=== PATIENT | female | born 1935 | race Caucasian/White ===

== ENCOUNTER 2016-09-03 17:53 | Inpatient (IN) ==
[2016-09-03 18:58] LABS: MANUAL DIFF NEEDED? NO
--- NOTE | 2016-09-03 18:59 | EKG Report ---
Test Performed on : 09/03/2016 6:49:05 PM Test Reason : AMS Blood Pressure : / mmHG Vent. Rate : 081 BPM Atrial Rate : 081 BPM P-R Int : 188 ms QRS Dur : 146 ms QT Int : 464 ms P-R-T Axes : 048 -35 111 degrees QTc Int : 539 ms Normal sinus rhythm. Left axis deviation Nonspecific intraventricular block Abnormal ECG When compared with ECG of 05-JUL-2016 09:15, Sinus rhythm. has replaced Electronic ventricular pacemaker Unconfirmed Result
[2016-09-03 19:04] LABS: BASO% 0.5 % (0.0-0.8); EOS# 0.19 X1000 (0.0-0.7); EOS% 1.9 % (0.0-10.0); HEMATOCRIT 20.5 % (37.0-47.0); HEMOGLOBIN 6.3 g/dL (12.0-16.0); IMM GRAN# 0.03 X1000 (0.0-0.04); IMM GRAN% 0.3 % (0.0-0.5); LYMPH# 1.95 X1000 (1.2-3.4); LYMPH% 19.5 % (20.5-51.1); MCH 27.2 PG (27-31); MCHC 30.7 g/dL (33-37); MCV 88.4 FL (81-99); MONO# 0.68 X1000 (0.11-0.59); MONO% 6.8 % (1.7-9.3); MPV 10.2 FL (7.4-10.4); PLT 171 X1000 (130-400); RBC 2.32 XMIL (4.2-5.4)
[2016-09-03 19:07] LABS: PTT PL 44.6 Seconds (22.6-43.9)
[2016-09-03 19:12] LABS: ALBUMIN 3.4 g/dL (3.5-5.0); CALCIUM 9.5 mg/dL (8.8-10.2); POTASSIUM 3.9 mmol/L (3.5-5.1); TOTAL BILIRUBIN 0.2 mg/dL (0.20-1.00); TOTAL PROTEIN 5.5 g/dL (6.3-8.3)
[2016-09-03 19:28] LABS: UR AMPHETAMINES QUAL NONE DETECTED (NONE DETECT); UR BARBITUATES QUAL NONE DETECTED (NONE DETECT); UR BENZODIAZEPIN QUAL NONE DETECTED (NONE DETECT); UR COCAINE QUAL NONE DETECTED (NONE DETECT); UR MDMA QUAL NONE DETECTED (NONE DETECT); UR METHADONE QUAL NONE DETECTED (NONE DETECT)
[2016-09-03 19:29] LABS: UR CANNABINOIDS QUAL NONE DETECTED (NONE DETECT); UR METHAMPHETAMINE QUAL NONE DETECTED (NONE DETECT); UR OPIATES QUAL PRESUMPTIVE POSITIVE (NONE DETECT); UR OXYCODONE QUAL NONE DETECTED (NONE DETECT); UR PCP QUAL NONE DETECTED (NONE DETECT); UR TCA QUAL NONE DETECTED (NONE DETECT)
[2016-09-03 19:58] LABS: INR 5.06 (0.86-1.15); PROTIME 46.1 Seconds (12.1-15.5)
[2016-09-03 19:58] LABS: BILIRUBIN URINE NEGATIVE (NEGATIVE); BLOOD URINE 1+ (NEGATIVE); CLARITY SL. CLOUDY (CLEAR); COLOR YELLOW; GLUCOSE URINE NEGATIVE (NEGATIVE); LEUKOCYTES URINE 1+ (NEGATIVE); NITRITE URINE NEGATIVE (NEGATIVE); PROTEIN URINE NEGATIVE (NEGATIVE); SP GRAVITY URINE 1.015; UROBILINOGEN URINE NORMAL
[2016-09-03 20:00] LABS: URINE CAST NONE SEEN /LPF; URINE CRYSTAL NONE SEEN /HPF; URINE CULTURE PL NEEDED? YES; URINE EPITHELIAL CELLS <10 /HPF (<10); URINE RBC <10 /HPF (<10); URINE SOURCE CLEAN CATCH; URINE WBC <10 /HPF (<10)
[2016-09-03 20:57] LABS: OCCULT BLOOD 1 POSITIVE (NEGATIVE)
--- NOTE | 2016-09-03 20:58 | Diag Imaging Result Document ---
PROCEDURE NAME: HEAD W/O CONTRAST - 09/03/2016 CT OF THE HEAD WITHOUT CONTRAST: FINDINGS: There is encephalomalacia in the right occipital lobe and patchy lucencies are present elsewhere in the periventricular white matter, the anterior limb of the internal capsule on the right and to some extent in both basal ganglia. There is no evidence of mass effect, bleed, or abnormal extra-axial fluid collection. There are dense calcifications in both vertebral arteries. Compared to 08/22/2016, there has been no significant change in the appearance of the brain. As there has clearly been previous ischemic change, the possibility of a small acute infarct cannot be entirely excluded, and further evaluation with MRI may be desirable. IMPRESSION: No evidence of acute disease. Chronic ischemic changes as described.
[2016-09-03] MEDS ORDERED: NS 1,000 ML IV ONE (21:05)
[2016-09-03] MEDS ORDERED: VITAMIN K 10 MG in NS 50 ML IV ONE (21:15)
--- NOTE | 2016-09-03 21:20 | PROVIDER DOCUMENTATION ---
This chart was entered by Cathryn Chandler Scribe, acting as scribe for Keegan Roberts PA. HPI-General Adult - General Chief Complaint: Weakness Stated Complaint: WEAKE Time Seen by Provider: 09/03/16 18:29 Source: patient Allergies/Adverse Reactions: Patient Allergies Allergy/AdvReac Type Severity Reaction Status Date / Time carbidopa [From Sinemet] Allergy Unknown Verified 09/03/16 20:08 diazepam [From Valium] Allergy Unknown Verified 09/03/16 20:08 diltiazem HCl * Allergy Unknown Verified 09/03/16 20:08 [From Cardizem] levodopa [From Sinemet] Allergy Unknown Verified 09/03/16 20:08 morphine Allergy Unknown Verified 09/03/16 20:08 Penicillins Allergy Unknown Verified 09/03/16 20:08 rasagiline mesylate * Allergy Unknown Verified 09/03/16 20:08 [From Azilect] sotalol Allergy Unknown Verified 09/03/16 20:08 streptomycin Allergy RASH Verified 09/03/16 20:08 Home Medications: Home Medication List Medication Instructions Recorded Confirmed Last Taken Type Aspirin 81 mg PO DAILY 01/30/15 09/03/16 07/05/16 07:00 History Lidocaine 5% Patch [Lidoderm] 1 patch TOP PRN PRN 01/30/15 09/03/16 06/09/16 06: 00 History 1 PATCH Warfarin [Coumadin] 4 mg PO DIRECTED 01/30/15 09/03/16 07/04/16 18:00 History Hydrocodone/Acetaminophen [[place] 1 each PO BID 06/13/15 09/03/16 07/04/16 History 10-325 Tablet] Lorazepam 1 mg PO QHS 06/13/15 09/03/16 07/04/16 18:00 History Isosorbide Mononitrate E.r. [Imdur] 30 mg PO DAILY 08/22/15 09/03/16 07/05/16 07 :00 History Nitroglycerin [Nitrostat] 0.4 mg SL PRN PRN 08/22/15 09/03/16 Unknown History Pramipexole Di-HCl [Mirapex] 1 tab PO QHS 08/22/15 09/03/16 07/04/16 18:00 History Gabapentin 300 mg PO BID 01/27/16 09/03/16 07/04/16 18:00 History Potassium Chloride 10 meq PO DAILY 01/27/16 09/03/16 07/04/16 12:00 History Ropinirole HCl 1 mg PO HS 01/27/16 09/03/16 07/04/16 18:00 History ATORVAstatin [Lipitor] 40 mg PO DAILY 08/22/16 09/03/16 Unknown History Trazodone [Desyrel] 200 mg PO HS PRN PRN 08/22/16 09/03/16 Unknown History Metoprolol [Lopressor] 25 mg PO DAILY 09/03/16 09/03/16 Unknown History - History of Present Illness -Gen Adult Nature of Presenting Problems: 81 year old F presents to the ED with a cc of weakness. PT states that nothing feels right and she feels empty inside. PT states that she is having to brace herself to take a step. PT states that she struggles walking with her walking and with her 's assistance. states that she had her [place] level checked last week and it was 7.5. PT was taken off the [place] and level are suppose to be checked again tomorrow. Pt was told that levels could be checked tonight. Pt states that she has had some dark stools intermittently. Pt has been diagnosed with tremors and is being treated for them. Location of Pain/Injury: reports: generalized Pain Radiation: reports: no radiation Quality of Pain: reports: none Severity: reports: mild Onset/Duration: reports: 3 days ago Timing: reports: getting worse Context/Activities at Onset: reports: none Associated Symptoms: reports: weakness Similar Symptoms Previously?: No Recently seen or treated by another doctor?: No Review of Systems - Adult - REVIEW OF SYSTEMS - ADULT Constitutional: denies: chills, fever Eyes: reports: no symptoms reported Ears, Nose, Mouth & Throat: reports: no symptoms reported Cardiovascular: denies: chest pain, palpitations Respiratory: denies: cough, shortness of breath Gastrointestinal: reports: no symptoms reported Genitourinary: reports: no symptoms reported Musculoskeletal: reports: muscle weakness. denies: muscle aches Integumentary: denies: skin sores/ulcer, skin thickening Neurological: reports: no symptoms reported Psychiatric: reports: no symptoms reported Endocrine: reports: no symptoms reported Hematologic/Lymphatic: reports: no symptoms reported Allergic/Immunologic: reports: no symptoms reported All Other Systems: Reviewed and Negative Past History - Adult - PAST MEDICAL HISTORY-ADULT Review of Records: reports: Nursing Assessment Review, Medications Reviewed Major Childhood Illnesses: reports: denies history Cardiovascular: reports: cardiac disease (multiple cardiac stents), pacemaker Respiratory: reports: denies history Gastrointestinal: reports: denies history Obstetrical/Gynecological: reports: denies history Genitourinary: reports: denies history Musculoskeletal: reports: arthritis, orthopedic injury Neurological: reports: Parkinson's Psychiatric: reports: denies history Endocrine/Immune: reports: denies history Other Conditions: reports: denies history - PRIOR SURGERIES/PROCEDURES Surgical/Procedure History: reports: reviewed, not pertinent - PRIOR HOSPITALIZATIONS Prior Hospitalizations: reports: for other non-related - IMMUNIZATION STATUS Childhood Immunizations: See Nurse Assessment Flu Vaccine: See Nurse Assessment - FAMILY HISTORY Family History: reviewed, not pertinent - SOCIAL HISTORY Smoking: non-smoker Substance Use: none/never Alcohol Use Frequency: rarely Physical Exam-General - PHYSICAL EXAM-ADULT Initial Vital Signs Reviewed: Yes - CONSTITUTIONAL General Appearance: appears well, alert, no apparent distress - RESPIRATORY Respiratory: chest non-tender, lungs clear, normal breath sounds - CARDIOVASCULAR Cardiovascular: normal peripheral pulses, regular rate, rhythm, no edema - GASTROINTESTINAL (ABDOMEN) Abdominal Exam: non tender, soft - MUSCULOSKELETAL Extremity: normal inspection - SKIN Integumentary: normal color, normal turgor, warm/dry - NEUROLOGIC 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 negative: facial droop, focal weakness, sensory deficit - PSYCHIATRIC Psych/Mental Status: normal mood/affect, normal thought content, normal thought process, oriented x 3 Progress - PLAN OF CARE/RESULTS Progress/Plan/Lab Results: Vital Signs - 8 hr 09/03/16 17:55 Temperature 98.1 F Pulse Rate 86 Respiratory Rate 18 Blood Pressure 126/59 O2 Sat by Pulse Oximetry 98 Result Diagrams: 09/03/16 18:02 09/03/16 18:02 - REASSESSMENT Reassessment #1 Time Reassessed: 21:11 (Discussed c Dr. Villa (ER MD) who agreed c admission and plan of care and would like me to order 10mg Vit K IV. Pt confirms that she does not have an artificial heart valve. ) - EKG 1 Time of EKG reading by physician:: 18:49 EKG Read and Signed by:: Cali Villa EKG Interpretation (*Must complete 3 of following elements*): Abnormal Rate: 81 Rhythm: NSR [place]: left Comments: nonspecific intraventricular block - CT/MRI 1 CT Study: Head Impression: Abnormal CT Results: chronic microvascular changes - CONSULTS/PCP/HOSPITALIST Notification #1 *Consult/PCP/Hospitalist*: Dr. Olguin (PCP) Time Discussed: 20:45 (Admit pt to [facility] for GI consult) #2 Consult: Dr. Jorgensen (Hospitalist) Time Discussed: 21:10 (Will accept admission and consult GI.) Departure - Departure Time of Disposition Decision: 21:03 DIAGNOSIS: Supratherapeutic INR, GI bleed, Weakness Disposition: ADMITTED INPATIENT 09 Certified Medical Emergency: Emergent Condition: Stable Referrals and Follow-Ups: David Olguin MD [Primary Care Provider] - Attestation - Physician/ AUGUSTUS Attestation Patient care was provided by Advanced Practice Provider:: Yes Advanced Practice Provider:: Keegan Roberts Advanced Practice Provider documentation review:: The Mid-level provider documentation, treatment plan and medical decision making was reviewed by the physician who agrees with all treatment and medical decision making by the MLP. This chart was documented by the indicated scribe, (Cathryn Chandler Scribe) and accurately reflects the services I performed and decisions made by me, Keegan Roberts PA, as attested by the provider's signature.
[2016-09-04] MEDS ORDERED: REQUIP PO ONE (00:35)
--- NOTE | 2016-09-04 01:03 | HISTORY AND PHYSICAL ---
PRIMARY CARE PHYSICIAN: Dr. David Olguin. CHIEF COMPLAINT: Weakness. HISTORY OF PRESENTING ILLNESS: A 81-year-old female with a history of coronary disease, atrial fibrillation, hypertension, had presented to emergency department with 3 days history of having worsening weakness. Patient states that she was unable to get out of bed and her had to lift her up to even use the bathroom. She was evaluated in the ER at [place], and at that time she was found to have routine laboratories that showed that she was profoundly anemic. Due to a lack of subspecialty care, she was transferred to [facility] for further evaluation and management. As per ER provided there they noted that the patient was having dark stools and was Hemoccult positive there. At the time of my examination, patient denied having any headache, fever, chills, chest pain, shortness of breath or any weight changes but complained of having dark stools and feeling weak. PAST MEDICAL HISTORY: Includes hypertension, atrial fibrillation, coronary disease, peripheral vascular disease, restless legs syndrome, hyperlipidemia. PAST SURGICAL HISTORY: Pacemaker, coronary stent, hysterectomy, catheter ablation. ALLERGIES: Penicillin, mycins, carbidopa, diazepam, diltiazem, levodopa and morphine. CURRENT MEDICATIONS: As listed in MAR. SOCIAL HISTORY: She is a former smoker. Admits to social alcohol use. Denies any illicit drug use. FAMILY HISTORY: No history of coronary disease. REVIEW OF SYSTEMS: [employer] point systems is as in HPI. Other systems negative. PHYSICAL EXAMINATION: GENERAL: Cooperative, friendly female. She is resting comfortably now. VITAL SIGNS: Temperature 98.1 degrees, pulse 86, respiration 18, blood pressure 126/59, saturating 98%. HEENT: Atraumatic, normocephalic. Extraocular movements intact. PERRLA. She has pale conjunctiva. NECK: Supple. CHEST: Clear to auscultation. CARDIOVASCULAR: Regular rate, rhythm. ABDOMEN: Soft. Positive bowel sounds. EXTREMITIES: No edema. NEURO: She is awake, alert, oriented x3. Strength 5/5 all extremities. : No bladder distention. SKIN: Warm and dry. LABORATORIES AND STUDIES: UA shows +3 bacteria. Hemoglobin 6.3, hematocrit 20.5, platelets 171,000. INR 5.06. Sodium 142, potassium 3.9, chloride 107, CO2 23, BUN is 37 , creatinine is 1.3, glucose 108. ASSESSMENT: A 81-year-old female with a history of atrial fibrillation, hypertension, coronary disease, had presented to emergency department with having worsening weakness for the past 3 days. She is found to be severely anemic and she was transferred to [facility] due to lack of gastrointestinal services there. 1. Symptomatic anemia. 2. Suspected upper gastrointestinal bleed. 3. Supratherapeutic INR. 4. Hypertension. 5. Dehydration. 6. UTI PLAN: 1. We will admit patient to ICU. 2. We will type and cross and transfuse 2 units packed red blood cells. 3. We will keep patient NPO and consult Gastroenterology. 4. The patient was given vitamin K already. Will monitor PT/INR. 5. We will monitor blood pressure close 6 We will continue with IV fluids. 7. IV ABX, check urine culture 8. Put patient on DVT prophylaxis with SCDs. 9. We will continue to follow and reassess. cc: Dick Jorgensen MD MTDD
--- NOTE | 2016-09-04 06:15 | Diag Imaging Result Document ---
PROCEDURE NAME: CHEST-1 VIEW - 09/03/2016 CHEST SINGLE VIEW: COMPARISON: Compared to 07/05/2016. FINDINGS: The lungs are well expanded. The heart is not enlarged. The vessels are not distended. There is a left-sided pacemaker. Calcified granuloma found in the lower right lung and there are calcified right hilar lymph nodes. No pleural effusions identified. IMPRESSION: Negative chest.
[2016-09-04] MEDS: ZOFRAN IV PRN (09:30)
[2016-09-04] MEDS: SODIUM CHLORIDE 0.9% INJ SCH ×2 (09:30→21:43)
[2016-09-04] MEDS: PROTONIX IV SCH ×2 (09:30→21:43)
[2016-09-04 09:35] LABS: MANUAL DIFF NEEDED? NO
[2016-09-04 09:50] LABS: BASO% 0.3 % (0.0-0.8); EOS# 0.43 X1000 (0.0-0.7); EOS% 4.1 % (0.0-10.0); HEMATOCRIT 27.6 % (37.0-47.0); HEMOGLOBIN 8.8 g/dL (12.0-16.0); LYMPH# 2.92 X1000 (1.2-3.4); LYMPH% 27.8 % (20.5-51.1); MCH 28.9 PG (27-31); MCHC 31.9 g/dL (33-37); MCV 90.5 FL (81-99); MONO# 0.71 X1000 (0.11-0.59); MONO% 6.8 % (1.7-9.3); PLT 128 X1000 (130-400); RBC 3.05 XMIL (4.2-5.4)
[2016-09-04 10:47] LABS: POTASSIUM 4.1 mmol/L (3.5-5.1)
--- NOTE | 2016-09-04 11:04 | PROGRESS NOTE ---
DATE: 09/04/2016 SUBJECTIVE: Patient reports she is still feeling weak. She had noticed yesterday darker stools, but nothing today. She denies any abdominal pain, although she was complaining of mild nausea this morning. OBJECTIVE: Vital Signs: Temperature 98.7 degrees, heart rate 75, respiratory rate 21, blood pressure 135/80, O2 saturation 99% on room air. General Examination: This is a 81-year-old female lying in bed in no acute distress. HEENT: Head is normocephalic, atraumatic. Anicteric sclerae and pale conjunctivae. Mucous membranes moist. Neck: Supple. No JVD noted. No carotid bruits. No lymphadenopathy. No thyromegaly. Cardiovascular: S1 and S2 heard. No murmurs, gallops, or rubs. Regular rate and rhythm. Respiratory: Clear bilaterally to auscultation. No work of breathing. Not using accessory muscles. Abdomen: Soft, nontender to palpation. Bowel sounds present. No organomegaly. Extremities: No clubbing, cyanosis, or edema. Peripheral pulses present in both legs. Neurological: Patient is alert and oriented x3. Able to move 4 extremities. Cranial nerves 2-12 grossly normal. LABORATORY DATA: White cell count 10.49, hemoglobin 8.8, hematocrit 27.6, platelets 128,000. BMP unremarkable. ASSESSMENT AND PLAN: 1. Gastrointestinal bleeding. The patient had darker stools and in the ER she was found to have hemoglobin of 6.3. Two units of blood have been ordered and we transfused it. Gastroenterology, Dr. Ng, is supposed to see this patient today. We will follow his recommendations. 2. Supratherapeutic INR. The INR was 5.06. We have discontinued the medication because of GI bleeding and because of the procedure, in this case an upper endoscopy. We will continue watching this patient closely in the intensive care unit. 3. Hypertension. The blood pressure is ranging between 100 and 130. We will continue with the same management. 4. Acute kidney injury. Creatinine yesterday was 1.3. The patient currently is on IV fluids. We will continue with the same management. We will check BMP tomorrow. cc: Stephon Sahu MD
--- NOTE | 2016-09-04 11:59 | EKG Report ---
Test Performed on : 09/04/2016 07:09:37 AM Test Reason : No Order in Cloakroom Blood Pressure : / mmHG Vent. Rate : 075 BPM Atrial Rate : 075 BPM P-R Int : 172 ms QRS Dur : 148 ms QT Int : 468 ms P-R-T Axes : -24 -38 111 degrees QTc Int : 522 ms AV dual-paced rhythm Abnormal ECG No previous ECGs available Confirmed by Esa BYRD, Edison Steve ([id number]) on 09/06/2016 9:27:00 PM
[2016-09-04] MEDS: DILAUDID IV PRN ×2 (12:26→19:25)
[2016-09-04 16:18] LABS: HEMOGLOBIN 8.3 g/dL (12.0-16.0)
[2016-09-04 16:45] LABS: INR 1.09; PROTIME 11.5 Seconds (9.2-11.7)
--- NOTE | 2016-09-04 18:57 | CONSULTATION ---
DATE OF CONSULTATION: 09/04/2016 REASON FOR REFERRAL: Anemia, Hemoccult-positive stool, and melena. HISTORY OF PRESENT ILLNESS: This is a 81-year-old female who reports a 3-day history of having weakness that has progressively gotten worse, to the point that she was unable to walk without assistance from her . Ambulance was called and she was brought to the ER at [place]. At that time she was found to have profound anemia and was transferred to [facility] for further evaluation. In the ER she was found to have a Hemoccult-positive stool. Patient reports being on chronic Coumadin therapy. On evaluation her INR was greater than 7. She does note having a recent diagnosis of urinary tract infection and had recently taken antibiotics. She denies any bright red blood in the stool. She denies nausea or vomiting. Her Coumadin was stopped on Friday. Repeat PT/INR level last night showed an INR of 5.06. Patient reports mild abdominal pain. She has had some reflux and heartburn recently. She was seen in the hospital in June of this year and evaluated for chest pain and dysphagia. An EGD was done that showed mild gastritis. She states her colonoscopy last done was greater than 5 years ago in [place]. PAST MEDICAL HISTORY: For hypertension, atrial fibrillation, coronary artery disease with history of pacemaker placement, peripheral vascular disease, restless legs syndrome, hyperlipidemia. PAST SURGICAL HISTORY: Pacemaker, history of coronary stent, history of cardiac ablation, hysterectomy. As noted, last EGD was in June of 2016 per patient report. Last colonoscopy was over 5 years ago. ALLERGIES: Sinemet, unknown reaction. Valium, unknown reaction. Cardizem, unknown reaction. Levodopa, unknown reaction. Morphine, unknown reaction. Penicillin, unknown reaction. Azilect, unknown reaction. Sotalol, unknown reaction. Streptomycin, causing a rash. HOME MEDICATIONS: Lopressor 25 mg daily, Lipitor 40 mg daily, ropinirole 1 mg every night, Mirapex 1 tablet every night, potassium 10 mEq daily, Nitrostat 0.4 sublingual as needed, gabapentin 300 mg twice daily, aspirin 81 mg daily, Desyrel 200 mg every night as needed, Lidoderm 1 patch as needed, Imdur 30 mg daily, [place] 10/325 twice a day, Coumadin 4 mg as directed, lorazepam 1 mg every night. SOCIAL HISTORY: History of tobacco use. Occasional alcohol use. She is . REVIEW OF SYSTEMS: HEENT: Reports some dizziness and lightheadedness. No reported syncope. Cardiovascular: History of cardiac ablation and history of pacemaker she has complained of some heaviness but no reported chest pain or palpitations. Pulmonary: Reports some shortness of breath. GI: Per HPI. : History of recent urinary tract infection and recently took antibiotics. Neurological: History of TIA. Musculoskeletal: Reports history of restless legs syndrome. PHYSICAL EXAMINATION: Vital signs: Temperature 98.3 degrees, pulse 75, respirations 13, blood pressure 131/53. General: The patient is awake, alert, in no acute distress. HEENT: Normocephalic, atraumatic. Pupils equal, round, reactive to light. Sclerae nonicteric. Conjunctiva are pale. Respiratory: Lung sounds essentially clear bilaterally. Cardiovascular: Paced rhythm. Abdomen: Soft. Positive bowel sounds. Neurological: She is awake, alert, no acute distress. Oriented to person, place, and time. Extremities: Bilateral lower extremity pulses present. No edema noted. DIAGNOSTIC RESULTS/LABORATORY: Hematology: White count 10.89, hemoglobin 8.3, hematocrit 26.0, MCV 90.5, platelet 128,000. Coagulation: Protime 46.1, INR 5.06, PTT 44.6. Chemistry: Sodium 145, potassium 4.1, chloride 111, CO2 23, BUN 38, creatinine 1.0, glucose 91, calcium 8.0, total bilirubin 0.20, AST 28, ALT 14. Hemoccult stool was positive. Drug screen was negative except for presumptive positive for opiates. ASSESSMENT: 1. Anemia. 2. Hemoccult-positive stool. 3. Supratherapeutic INR with recent antibiotic use. 4. History of chronic Coumadin use. 5. History of atrial fibrillation. 6. Coronary artery disease with history of pacemaker placement. PLAN: Recheck PT/INR. Monitor hemoglobin and hematocrit and transfuse packed red blood cells as needed. Monitor for active bleeding. We will plan for EGD when her INR is at an appropriate level. Further plans will be made according to findings. Thank you for this consultation. Patient was also seen by Dr. Giron. Dictated by LUCERO Stahl for Dajuan Giron MD cc: LUCERO Ayoub MD MTDD
[2016-09-04] MEDS ORDERED: REQUIP PO SCH (21:00)
[2016-09-04] MEDS: REQUIP PO SCH (21:43)
[2016-09-05] MEDS: DILAUDID IV PRN ×4 (04:51→20:16)
[2016-09-05 06:02] LABS: MANUAL DIFF NEEDED? NO
[2016-09-05 06:14] LABS: INR 1.02; PROTIME 10.7 Seconds (9.2-11.7)
[2016-09-05 06:15] LABS: BASO% 0.3 % (0.0-0.8); EOS# 0.55 X1000 (0.0-0.7); HEMATOCRIT 25.6 % (37.0-47.0); HEMOGLOBIN 8.1 g/dL (12.0-16.0); IMM GRAN# 0.07 X1000 (0.0-0.04); IMM GRAN% 0.8 % (0.0-0.5); LYMPH# 2.97 X1000 (1.2-3.4); LYMPH% 32.4 % (20.5-51.1); MCH 28.7 PG (27-31); MCHC 31.6 g/dL (33-37); MCV 90.8 FL (81-99); MONO# 0.89 X1000 (0.11-0.59); MONO% 9.7 % (1.7-9.3); MPV 9.9 FL (7.4-10.4); NEUT% 50.8 % (42.2-75.2); PLT 151 X1000 (130-400); RBC 2.82 XMIL (4.2-5.4)
[2016-09-05 06:27] LABS: POTASSIUM 3.7 mmol/L (3.5-5.1)
[2016-09-05] MEDS: PROTONIX IV SCH ×3 (10:05→21:56)
--- NOTE | 2016-09-05 11:49 | PROGRESS NOTE ---
DATE: 09/05/2016 SUBJECTIVE: Patient reports feeling fine. Denies any sensation of dizziness. No vomiting blood or having blood in the stools. OBJECTIVE: Vital Signs: Temperature 97.9 degrees, heart rate 81, respiratory rate 19, blood pressure 117/75, O2 saturation 97% on room air. General Examination: This is a 81-year-old female lying in bed, in no acute distress. HEENT: Head is normocephalic, atraumatic. Anicteric sclerae. Pale conjunctivae. Mucous membranes moist. Neck: Supple. No JVD noted. No carotid bruits. No lymphadenopathy. No thyromegaly. Cardiovascular: S1, S2 heard. No murmurs, gallops, or rubs. Regular rate and rhythm. Respiratory: Clear bilaterally to auscultation. No work of breathing or using accessory muscles. Abdomen: Soft. Nontender to palpation. Bowel sounds present. No organomegaly. Extremities: No clubbing, cyanosis, or edema. Peripheral pulses present in both legs. Neurological: Patient is alert and oriented x3. Able to move 4 extremities. Cranial nerves 2 through 12 grossly normal. LABORATORY DATA: Reviewed. ASSESSMENT AND PLAN: 1. Gastrointestinal bleeding. As we mentioned before, patient had dark stools and she also was complaining of dizziness and fatigue. She was found to have a hemoglobin of 6.3. She was admitted to the hospital for further evaluation and treatment. She I received 1 unit of PRBCs. We are going to transfuse [address] Giron from GI is going to scope her. Will see what that exam shows. 2. Supratherapeutic INR. After we stopped Coumadin the INR today is normal. At this point, after the procedure we will discuss the patient the benefits to continue with anticoagulation considering this new episodes of bleeding. 3. Hypertension. Blood pressure is under control. We will continue with the same management. 4. Acute kidney injury. The patient has been started on IV fluids since yesterday and today the creatinine is completely normal. 5. Overall this patient is doing good so we are going to move this patient out of the intensive care unit today. cc: Stephon Sahu MD
[2016-09-05] MEDS ORDERED: MYLICON DROPS (DOSE) ONE (12:52)
[2016-09-05] MEDS ORDERED: GLUCAGON ONE (13:02)
[2016-09-05] MEDS ORDERED: EPINEPHRINE SYRINGE ONE (13:12)
[2016-09-05] MEDS ORDERED: ZOFRAN ONE (13:55)
[2016-09-05] MEDS ORDERED: DEMEROL ONE (14:00)
[2016-09-05] MEDS ORDERED: DIPRIVAN 1% ONE (14:13)
[2016-09-05] MEDS ORDERED: XYLOCAINE-MPF 2% ONE (14:29)
[2016-09-05] MEDS ORDERED: ANESTHESIA PB SET 88 IN 5742 ONE (14:29)
[2016-09-05] MEDS ORDERED: LR 500 ML ONE (14:29)
[2016-09-05] MEDS: REQUIP PO SCH (20:16)
--- NOTE | 2016-09-05 22:34 | OPERATIVE NOTE ---
PROCEDURE DATE: 09/05/2016 PROCEDURE: Esophagogastroduodenoscopy and hemorrhage control. PREOPERATIVE DIAGNOSIS: Gastrointestinal bleed and anemia secondary to gastrointestinal bleed. POSTOPERATIVE DIAGNOSIS: 1. 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 2. Small diverticulum third portion of the duodenum. MEDICATION USED: MAC as per Anesthesia. SCOPE USED: 1. Olympus GIF HQ190. 2. Olympus duodenoscope. HISTORY: This is a 81-year-old white female admitted to hospital with melanic stool who was found to have profound anemia. She was also found to have coagulopathy. Endoscopy was done for diagnostic as well as therapeutic purposes. DETAILS OF OPERATION: Informed consent obtained from the patient. The procedure, risks, benefits, alternatives were explained in layman's terms. She understood. All the pertinent questions were answered. Patient was brought to the endoscopy unit and was premedicated as per Anesthesia. After adequate sedation, while she was lying in left lateral position, the gastroscope was introduced into the posterior pharynx and advanced under direct vision into the esophagus. Esophagus in its entire length appeared to be normal. No esophagitis, webs, rings, varices were seen. No evidence of active bleeding or stigmata of recent bleed seen in the esophagus. The scope was then passed through the esophagus into the stomach. The stomach was examined in both straight and retroflexed view, which revealed normal cardia, fundus, body, and antrum. I did not see any evidence of active bleeding or stigmata of recent bleed. In the stomach. Scope was then passed through the pylorus into the duodenal bulb, where I saw a pool of flow altered blood in the dependent part of the bulb. I did not see any evidence of active bleeding from the bulb. I was able to advance the scope through the 2nd portion of the duodenum where I saw more bright red blood and blood and appeared to be trickling from distal duodenum. I was able to advance the scope just at the turn of the 2nd portion into the 3rd portion of the duodenum where I was able to see streaking of bright red blood from the medial aspect of the duodenum which I could not completely clearly visualize because of the tangent view. At this point, I withdrew the gastroscope and switch to the duodenoscope or the ERCP scope. I was able to advance the scope manually into the esophagus and then through the esophagus through the stomach and then through the pylorus into the duodenal bulb and then 2nd portion of the duodenum traversing it. Went all the way up to the turn where I could see the blood oozing, coming out of a small spot which did not appear to be an ulcer, base of the ulcer or erosion. There appeared to be a Dieulafoy's lesion which was actively bleeding. There was indeed a small diverticulum noted about a couple cm lateral to the spot where the blood was oozing. The bleeding was quite brisk. At this point, I used a sclerotherapy needle and injected 1:10,000 epinephrine in aliquots of 0.5 mL, total about 2 mL were injected in and around the area. The bleeding almost ceased to a trickle. Then I used a heater probe and applied 15 joules of current multiple times, getting a good cautery. The bleeding stopped and then the scope was withdrawn. Patient tolerated procedure well. No complications noted. Patient was then transferred to the recovery area in a stable condition. IMPRESSION: Bleeding Dieulafoy's lesion, third portion of the duodenum, treated. RECOMMENDATION: I would recheck her hemoglobin and hematocrit transfuse if necessary. In the meantime, continue her proton pump inhibitor. 12 hours and observe in the hospital. If she is stable, she can be discharged, to be followed up at the office. cc: MD David Garces MD
[2016-09-06] MEDS: DILAUDID IV PRN ×6 (00:46→21:22)
[2016-09-06 05:38] LABS: MANUAL DIFF NEEDED? NO
[2016-09-06 05:46] LABS: BASO% 0.2 % (0.0-0.8); EOS# 0.46 X1000 (0.0-0.7); EOS% 3.6 % (0.0-10.0); HEMATOCRIT 24.7 % (37.0-47.0); HEMOGLOBIN 7.9 g/dL (12.0-16.0); IMM GRAN# 0.05 X1000 (0.0-0.04); IMM GRAN% 0.4 % (0.0-0.5); LYMPH# 4.05 X1000 (1.2-3.4); LYMPH% 32.1 % (20.5-51.1); MCH 29.5 PG (27-31); MCV 92.2 FL (81-99); MONO# 0.91 X1000 (0.11-0.59); MONO% 7.2 % (1.7-9.3); MPV 9.9 FL (7.4-10.4); NEUT% 56.5 % (42.2-75.2); PLT 170 X1000 (130-400); RBC 2.68 XMIL (4.2-5.4)
[2016-09-06 05:57] LABS: CALCIUM 8.1 mg/dL (8.8-10.2)
[2016-09-06] MEDS: SODIUM CHLORIDE 0.9% INJ SCH (09:40)
[2016-09-06] MEDS: PROTONIX IV SCH (09:40)
[2016-09-06] MEDS ORDERED: NS 500 ML ONE (10:19)
--- NOTE | 2016-09-06 12:29 | PROGRESS NOTE ---
DATE: 09/06/2016 SUBJECTIVE: The patient reports feeling fine. Denies any vomiting blood or blood in the stools. OBJECTIVE: Vital Signs: Temperature 99.0 degrees, heart rate 72, respiratory rate 17 blood pressure 126/93, O2 saturation 98% on room air. General examination: This is a 81-year-old, female, lying in bed in no acute distress. HEENT: Head is normocephalic, atraumatic. Anicteric sclerae and pale conjunctivae. Mucous membranes moist. Neck: Supple. No JVD noted. No carotid bruits. No lymphadenopathy. No thyromegaly. Cardiovascular exam: S1, S2 heard. No murmurs, gallops, or rubs. Regular rate and rhythm. Respiratory exam: Clear bilaterally to auscultation. No work of breathing or using accessory muscles. Abdomen: Soft , nontender to palpation. Bowel sounds present. No organomegaly. Extremities: No clubbing, cyanosis, or edema. Peripheral pulses present in both legs. Neurological exam: Patient alert, oriented x3. Able to move 4 extremities. Cranial nerves 2-12 grossly normal. LABORATORY DATA: White cell count 12.62, hemoglobin 7.9, hematocrit 24.7, platelets 170. BMP unremarkable. ASSESSMENT AND PLAN: 1. Gastrointestinal bleeding secondary to Dieulafoy lesion in the duodenum. Gastroenterology has scoped this patient yesterday and that is what we found. By now, the hemoglobin is stable. We are going to transfuse 1 unit of blood today. At this point, we are going to continue with Protonix 40 mg intravenous every 12 hours, and also we will add sucralfate to her current treatment. 2. Supratherapeutic INR. At this point, we are going to stop Coumadin considering this recent gastrointestinal bleed. I will suggest to have an appointment with her primary assistant counsel, Dr. Luong, in order to re-evaluate the need for anticoagulation. 3. Hypertension. Blood pressure is under control. 4. Acute kidney injury, resolved. 5. Physical deconditioning. The patient will need to go to rehabilitation facility/skilled nursing as per family request. We will continue with same management. cc: Stephon Sahu MD [facility]
--- NOTE | 2016-09-06 13:43 | PROGRESS NOTE ---
DATE: 09/06/2016 SUBJECTIVE: The patient denies any significant complaint. She complains of the wires and not being able to get up. She denies any evidence of blood in her stool or vomiting blood. She has not had a bowel movement since admission. EGD findings from yesterday showed a Dieulafoy's lesion in the duodenum that was treated. Vital signs: Temperature 99.0 degrees, pulse 72, respirations 17, blood pressure 126/93. Generally: The patient is awake, alert, no acute distress. Cardiovascular: Regular rate and rhythm. Respiratory: Lung sounds essentially clear. Abdomen: Is soft, nontender. Positive bowel sounds. DIAGNOSTIC RESULTS, LABORATORY, HEMATOLOGY: White count 12.62, hemoglobin 7.9, hematocrit 24.7, MCV 92.2. Coagulation yesterday PT 10.7, INR 1.02. Chemistry: Sodium 143, potassium 4.0, chloride 110, CO2 21, BUN 27, creatinine 1.0. Glucose 88. ASSESSMENT AND PLAN: 1. GI bleed. 2. Findings of Dieulafoy's lesion in the duodenum that was treated. 3. Supratherapeutic INR. Her Coumadin has been held for now. Follow with respiratory therapy technician regarding when to restart the anticoagulation. 4. Anemia. She is receiving a unit of packed red blood cells today. Will continue to follow. Monitor hemoglobin and hematocrit. Transfuse further packed red blood cells as needed. We can go ahead and change her PPI from IV to p.o. twice a day. Will see back on Friday. If discharged will see her in the office in a couple weeks from discharge and patient voices understanding. I have discussed this case with Dr. Giron. Dictated by LUCERO Stahl for Dajuan Giron MD cc: LUCERO Ayoub MD
[2016-09-06] MEDS: REQUIP PO SCH (21:21)
[2016-09-06] MEDS: PRILOSEC PO SCH (21:21)
[2016-09-06] MEDS: REMERON SOLTAB PO SCH (21:21)
[2016-09-07] MEDS: DILAUDID IV PRN ×7 (00:59→23:22)
[2016-09-07 05:51] LABS: BASO% 0.3 % (0.0-0.8); EOS# 0.63 X1000 (0.0-0.7); EOS% 5.6 % (0.0-10.0); HEMATOCRIT 29.9 % (37.0-47.0); HEMOGLOBIN 9.8 g/dL (12.0-16.0); IMM GRAN# 0.03 X1000 (0.0-0.04); IMM GRAN% 0.3 % (0.0-0.5); LYMPH# 3.25 X1000 (1.2-3.4); LYMPH% 28.8 % (20.5-51.1); MANUAL DIFF NEEDED? YES; MCH 29.9 PG (27-31); MCHC 32.8 g/dL (33-37); MCV 91.2 FL (81-99); MONO# 1.28 X1000 (0.11-0.59); MONO% 11.3 % (1.7-9.3); MPV 10.6 FL (7.4-10.4); NEUT% 53.7 % (42.2-75.2); PLT 163 X1000 (130-400); RBC 3.28 XMIL (4.2-5.4)
[2016-09-07 06:01] LABS: BANDS 10 % (0-1); BASO 2 % (0-1); EOS 4 % (1-10); LYMPHS 28 % (21-51); MONO 14 % (1-9); NRBC 1 % (0-0); POLYCHROM OCCASIONAL
[2016-09-07 06:03] LABS: CALCIUM 8.3 mg/dL (8.8-10.2); POTASSIUM 3.9 mmol/L (3.5-5.1)
[2016-09-07] MEDS: PRILOSEC PO SCH ×3 (09:52→23:21)
[2016-09-07] MEDS: LIDODERM TOP PRN (13:10)
--- NOTE | 2016-09-07 15:20 | PROGRESS NOTE ---
DATE: 09/07/2016 SUBJECTIVE: Patient reports feeling fine. No vomiting blood or blood in the stools. OBJECTIVE: Vital Signs: Temperature 98.8 degrees, heart rate 66, respiratory rate 16, blood pressure 112/42, O2 saturation 98% on room air. General: This is a 81-year-old female lying in bed in no acute distress. HEENT: Head is normocephalic, atraumatic. Anicteric sclerae and pale conjunctivae. Mucous membranes moist. Neck: Supple. No JVD noted. No carotid bruits. No lymphadenopathy. No thyromegaly. Cardiovascular: S1, S2 heard. No murmurs, gallops, or rubs. Regular rate and rhythm. Respiratory: Clear bilaterally to auscultation. No work of breathing or using accessory muscles. Abdomen: Soft, nontender to palpation. Bowel sounds present. No organomegaly. Extremities: No clubbing, cyanosis, or edema. Peripheral pulses present in both legs. Neurological: Patient alert and oriented x3. Able to move 4 extremities. Cranial nerves 2-12 grossly normal. LABORATORY DATA: Hemoglobin 9.8, hematocrit 29.9 and the BMP is unremarkable. ASSESSMENT AND PLAN: 1. Gastrointestinal bleeding secondary to Dieulafoy lesion in the duodenum. Hemoglobin is stable so far. Gastroenterology has been following this patient. At this time we are going to continue with the same management. GI has changed the IV Protonix to p.o. From GI standpoint, patient is good to go. 2. Supratherapeutic INR. The patient INR is normal so the anticoagulation is going to be discussed in the office with primary ski edge painter Dr. Luong but by now we are going to continue holding of course this anticoagulation because of this recent bleeding. 3. Hypertension. Blood pressure is under control. 4. Acute kidney injury resolved. 5. Physical deconditioning. We are basically waiting for a bed in a longterm for this patient. diversified crops ii farmworker has been already notified about this. cc: Stephon Sahu MD
[2016-09-07] MEDS: ZOFRAN IV PRN (17:15)
[2016-09-07] MEDS: REMERON SOLTAB PO SCH ×2 (19:50→23:22)
[2016-09-07] MEDS: REQUIP PO SCH ×2 (19:50→23:21)
[2016-09-08] MEDS: DILAUDID IV PRN ×7 (02:30→21:54)
[2016-09-08] MEDS: ZOFRAN IV PRN (02:31)
[2016-09-08 06:19] LABS: MANUAL DIFF NEEDED? NO
[2016-09-08 06:23] LABS: BASO% 0.3 % (0.0-0.8); EOS% 6.1 % (0.0-10.0); HEMATOCRIT 30.3 % (37.0-47.0); HEMOGLOBIN 9.7 g/dL (12.0-16.0); IMM GRAN# 0.02 X1000 (0.0-0.04); IMM GRAN% 0.2 % (0.0-0.5); LYMPH# 2.59 X1000 (1.2-3.4); LYMPH% 26.4 % (20.5-51.1); MCH 29.5 PG (27-31); MCV 92.1 FL (81-99); MONO# 1.14 X1000 (0.11-0.59); MONO% 11.6 % (1.7-9.3); MPV 10.7 FL (7.4-10.4); NEUT% 55.4 % (42.2-75.2); PLT 165 X1000 (130-400); RBC 3.29 XMIL (4.2-5.4)
[2016-09-08 06:47] LABS: CALCIUM 7.8 mg/dL (8.8-10.2); POTASSIUM 3.6 mmol/L (3.5-5.1)
[2016-09-08] MEDS: LIDODERM TOP PRN (09:36)
[2016-09-08] MEDS: PRILOSEC PO SCH ×2 (09:36→21:07)
[2016-09-08] MEDS ORDERED: NITROGLYCERIN SL PRN (12:51)
[2016-09-08] MEDS: NORCO-10 PO SCH ×2 (15:02→17:56)
--- NOTE | 2016-09-08 15:36 | PROGRESS NOTE ---
DATE: 09/08/2016 SUBJECTIVE: The patient reports still hurting in the back and she reports that she is not being given her home medications. She denies any vomiting blood or blood in the stools. OBJECTIVE: Vital Signs: Temperature 98.5 degrees, heart rate 94, respiratory rate 16, blood pressure 139/64, O2 saturation 100% on room air. General Examination: This is a 81-year-old female lying in bed, in no acute distress. HEENT: Head is normocephalic, atraumatic. Anicteric sclerae. Pale conjunctivae. Mucous membranes moist. Neck: Supple. No JVD noted. No carotid bruits. No lymphadenopathy. No thyromegaly. Cardiovascular: S1, S2 heard. No murmurs, gallops, or rubs. Regular rate and rhythm. Respiratory: Clear bilaterally to auscultation. No work of breathing or using accessory muscles. Abdomen: Soft, nontender to palpation. Bowel sounds present. No organomegaly. Extremities: No clubbing, cyanosis, or edema. Peripheral pulses present in both legs. Neurological: Patient is alert and oriented x3. Able to move 4 extremities. Cranial nerves 2 through 12 grossly normal. LABORATORY DATA: Reviewed. ASSESSMENT AND PLAN: 1. Gastrointestinal bleeding secondary to Dieulafoy lesion in the duodenum, stable. So far hemoglobin is around the same number and today the hemoglobin is 9.7 9.8. At this point, we are going to continue with the same management. We will continue with Protonix but now is p.o. as per GI recommendations. As per GI, the patient is good to go. 2. Supratherapeutic INR. Warfarin has been stopped until the patient sees his primary regrinder. 3. Hypertension. Blood pressure is under control. 4. Acute kidney injury, resolved. 5. Chronic back pain. Patient has been restarted on home medications, pain pills. 6. Physical deconditioning. We are basically waiting for a bed in a detention. cc: Stephon Sahu MD
[2016-09-08] MEDS: REQUIP PO SCH (15:39)
[2016-09-08] MEDS ORDERED: REMERON SOLTAB PO SCH (21:00)
[2016-09-08] MEDS ORDERED: MIRAPEX PO SCH (21:00)
[2016-09-08] MEDS ORDERED: ATIVAN PO SCH (21:00)
[2016-09-08] MEDS: NEURONTIN PO SCH (21:07)
[2016-09-09 05:35] LABS: MANUAL DIFF NEEDED? NO
[2016-09-09 05:49] LABS: BASO% 0.3 % (0.0-0.8); HEMATOCRIT 28.9 % (37.0-47.0); HEMOGLOBIN 9.2 g/dL (12.0-16.0); LYMPH# 1.64 X1000 (1.2-3.4); LYMPH% 22.8 % (20.5-51.1); MCHC 31.8 g/dL (33-37); MCV 91.2 FL (81-99); MONO# 1.06 X1000 (0.11-0.59); MONO% 14.8 % (1.7-9.3); MPV 10.2 FL (7.4-10.4); NEUT% 55.1 % (42.2-75.2); PLT 164 X1000 (130-400); RBC 3.17 XMIL (4.2-5.4)
[2016-09-09 06:00] LABS: CALCIUM 8.2 mg/dL (8.8-10.2); POTASSIUM 3.8 mmol/L (3.5-5.1)
[2016-09-09] MEDS: DILAUDID IV PRN ×3 (08:00→15:14)
[2016-09-09] MEDS ORDERED: IMDUR PO SCH (09:00)
[2016-09-09] MEDS ORDERED: LIPITOR PO SCH (09:00)
[2016-09-09] MEDS: PRILOSEC PO SCH (09:54)
[2016-09-09] MEDS: NEURONTIN PO SCH (09:55)
[2016-09-09] MEDS: NORCO-10 PO SCH ×2 (09:55→14:04)
[2016-09-09 12:57] VITALS: BP 131/47
--- NOTE | 2016-09-09 14:39 | DISCHARGE SUMMARY ---
ADMISSION DATE: 09/03/2016 DISCHARGE DATE: 09/09/2016 CONSULTATION: Dr. Giron with gastroenterology. PERTINENT PROCEDURES: 1. Head CT showed no evidence of acute disease, chronic ischemic changes. 2. EGD and hemorrhage control performed by Dr. Giron . DISCHARGE DIAGNOSES: 1. Gastrointestinal bleed secondary to Dieulafoy lesion in the duodenum stable. 2. Supratherapeutic INR. Coumadin has been stopped until patient sees her primary associate professor of psychology. 3. Hypertension stable. 4. Acute kidney injury resolved. 5. Chronic back pain. Continue home medications. 6. Physical deconditioning, be discharged to rehab. HOSPITAL COURSE: Ms Jeronimo is a 81-year-old female with history of coronary artery disease, atrial fibrillation, hypertension, presented to the ED with 3 days history of weakness. She had been unable to get out of bed and her had to lift her up to even use the bathroom. She was evaluated in the ED at [facility], lab done in the ED showed she was profoundly anemic. She was transferred to [facility] for GI evaluation. She did have Hemoccult- positive stools as well as a supratherapeutic INR. Patient was admitted to the ICU. She was typed and screened and transfused with PRBCs and given vitamin K, her hemoglobin and hematocrit as well as PT/INR were monitored closely. Her Coumadin was held. The patient underwent an EGD by Dr. Giron where she was found to have a bleeding Dieulafoy lesion 3rd portion of the duodenum. He was able to stop the bleeding. Hemoglobin and hematocrit has remained stable. Her coagulopathy has been corrected. Due to patient's generalized deconditioning social services designee was contacted to help for rehab placement. Patient is being discharged today to [facility] and rehab. VITAL SIGNS AT TIME OF HER DISCHARGE: Temperature is 98.3 degrees, heart rate 88, respiration 17, blood pressure is 131/47, O2 is 100% on room air. DISCHARGE DIET: GI soft. DISCHARGE MEDICATIONS: 1. Aspirin 81 mg p.o. daily. 2. Lipitor 40 mg p.o. daily. 3. Gabapentin 300 mg p.o. b.i.d. 4. [place] 10s 1 each p.o. 4 times a day p.r.n. 5. 30 mg p.o. daily. 6. Lidoderm patch 1 patch topical p.r.n. 7. Ativan 1 mg p.o. at bedtime. 8. Lopressor 12.5 mg p.o. daily. 9. Remeron 30 mg p.o. at bedtime. 10. Nitrostat 0.4 mg sublingual p.r.n. 11. Protonix 40 mg p.o. daily. 12. Potassium 10 mEq p.o. daily. 13. Mirapex 1 tab p.o. at bedtime. 14. Carafate 1 g p.o. q.6 hours. 15. Requip 0.25 mg, 1 mg p.o. at bedtime. FOLLOWUP: Patient being discharged to rehab. She will need to follow with her primary associate professor of psychology as to when to resume her Coumadin as well as Dr. Giron and her primary care physician Dr. Olguin. Patient can return to the ED for any worsening of symptoms. DISCHARGE TIME: 32 minutes. Dictated by LUCERO Howard for Stephon Sahu MD cc: Stephon Sahu MD MTDD
== END 2016-09-09 15:48 ==
LOC: P.ED 17:53 → SUATTDRO 21:39 → ICU 21:39 → 4N 09-05 12:58
PROVIDERS: ATTEND Internal Medicine
PROC: EN.HEAT (2016-09-05 12:30)

== ENCOUNTER 2017-01-15 07:50 | Inpatient (IN) ==
[2017-01-09 13:56] LABS: MANUAL DIFF NEEDED? NO; URINE MICRO REVIEW NEEDED? NO; URINE SOURCE CLEAN CATCH
[2017-01-09 13:58] LABS: BASO% 0.5 % (0.0-0.8); EOS% 15.6 % (0.0-10.0); HEMOGLOBIN 12.7 g/dL (12.0-16.0); LYMPH# 2.96 X1000 (1.2-3.4); LYMPH% 35.6 % (20.5-51.1); MCH 25.8 PG (27-31); MCHC 31.8 g/dL (33-37); MCV 81.3 FL (81-99); MONO# 0.95 X1000 (0.11-0.59); MONO% 11.4 % (1.7-9.3); MPV 8.7 FL (7.4-10.4); NEUT% 36.9 % (42.2-75.2); PLT 207 X1000 (130-400); RBC 4.92 XMIL (4.2-5.4)
[2017-01-09 14:00] LABS: BILIRUBIN URINE NEGATIVE (NEGATIVE); BLOOD URINE TRACE (NEGATIVE); COLOR YELLOW; GLUCOSE URINE NEGATIVE (NEGATIVE); LEUKOCYTES URINE LARGE (NEGATIVE); NITRITE URINE POSITIVE (NEGATIVE); PH URINE 6.5; PROTEIN URINE TRACE mg/dL (NEGATIVE); SP GRAVITY URINE 1.014; TURBIDITY URINE HAZY (CLEAR); UR EPITHELIAL CELLS <10 /HPF (<10); URINE BACTERIA 4+ /HPF; URINE RBC <10 /HPF (<10); URINE WBC TNTC /HPF (<10); UROBILINOGEN URINE NORMAL (NORMAL)
[2017-01-09 14:08] LABS: INR 1.94; PROTIME 21.2 Seconds (9.2-11.7); PTT 33.9 Seconds (22.0-36.0)
[2017-01-09 15:00] LABS: CALCIUM 10.1 mg/dL (8.8-10.2); POTASSIUM 4.4 mmol/L (3.5-5.1)
--- NOTE | 2017-01-09 16:12 | EKG Report ---
Test Performed on : 01/09/2017 1:45:33 PM Test Reason : PAT Blood Pressure : / mmHG Vent. Rate : 075 BPM Atrial Rate : 075 BPM P-R Int : 186 ms QRS Dur : 150 ms QT Int : 454 ms P-R-T Axes : 000 -50 113 degrees QTc Int : 506 ms AV dual-paced rhythm Abnormal ECG When compared with ECG of 10-NOV-2016 21:25, Vent. rate has decreased BY 5 BPM Confirmed by Crow Freeman DO ([id number]) on 01/12/2017 8:36:23 AM
[~2017-01-15 07:50] MED LIST: LIDODERM TOP PRN; NITROGLYCERIN SL PRN
[2017-01-15] MEDS ORDERED: PEPCID ONE (08:44)
[2017-01-15] MEDS ORDERED: COLACE ONE (08:44)
[2017-01-15] MEDS ORDERED: CELEBREX ONE (08:44)
[2017-01-15] MEDS ORDERED: REGLAN ONE (08:44)
[2017-01-15] MEDS ORDERED: VANCOMYCIN 1 GM/NS 1 GM/250 ML IVPB ONE (08:44)
[2017-01-15] MEDS ORDERED: LYRICA ONE (08:44)
[2017-01-15] MEDS ORDERED: LR 1,000 ML ONE (08:44)
[2017-01-15] MEDS ORDERED: DIPRIVAN 1% ONE (09:22)
[2017-01-15] MEDS ORDERED: FENTANYL ONE (09:22)
[2017-01-15] MEDS ORDERED: TORADOL ONE (09:26)
[2017-01-15] MEDS ORDERED: DURAMORPH ONE (09:26)
[2017-01-15] MEDS ORDERED: MARCAINE 0.25% PF ONE (09:26)
[2017-01-15] MEDS ORDERED: VANCOMYCIN ONE (09:26)
[2017-01-15] MEDS ORDERED: CYKLOKAPRON 1,000 MG/NS 1,000 MG/100 ML IVPB ONE ×2 (09:27→09:28)
[2017-01-15] MEDS ORDERED: NEOSPORIN G.U. IRRIGANT ONE (09:27)
[2017-01-15] MEDS ORDERED: SODIUM CHLORIDE 0.9% ONE (09:27)
[2017-01-15] MEDS ORDERED: EXPAREL 1.3% ONE (09:27)
[2017-01-15] MEDS ORDERED: DEMEROL ONE (10:32)
[2017-01-15 11:00] LABS: URINE SOURCE CATH
[2017-01-15 11:03] LABS: BILIRUBIN URINE NEGATIVE (NEGATIVE); BLOOD URINE NEGATIVE (NEGATIVE); COLOR YELLOW; GLUCOSE URINE NEGATIVE (NEGATIVE); LEUKOCYTES URINE LARGE (NEGATIVE); NITRITE URINE POSITIVE (NEGATIVE); PH URINE 6.5; PROTEIN URINE NEGATIVE (NEGATIVE); SP GRAVITY URINE 1.008; TURBIDITY URINE HAZY (CLEAR); URINE MICRO REVIEW NEEDED? YES; UROBILINOGEN URINE NORMAL (NORMAL)
[2017-01-15 11:14] LABS: UR EPITHELIAL CELLS <10 /HPF (<10); URINE BACTERIA NEGATIVE /HPF; URINE CASTS NONE SEEN; URINE RBC <10 /HPF (<10); URINE WBC TNTC /HPF (<10)
[2017-01-15] MEDS ORDERED: ZOFRAN ONE (12:08)
[2017-01-15] MEDS ORDERED: XYLOCAINE-MPF 2% ONE (12:08)
[2017-01-15] MEDS ORDERED: NEO-SYNEPHRINE ONE (12:08)
[2017-01-15] MEDS ORDERED: OFIRMEV 1000 MG/ISOTONIC SOLN 1,000 MG/100 ML BOTTLE ONE (12:08)
[2017-01-15] MEDS ORDERED: DECADRON ONE (12:08)
[2017-01-15] MEDS ORDERED: QUELICIN (DOSE) ONE (12:08)
[2017-01-15] MEDS: DEMEROL ONE ×6 (12:51→13:48)
[2017-01-15] MEDS ORDERED: NS 1,000 ML ONE (12:54)
--- NOTE | 2017-01-15 13:07 | Diag Imaging Result Doc PS360 ---
EXAM: KNEE 1-2 VIEWS-RIGHT HISTORY: post op total knee TECHNIQUE: Portable two views COMPARISON: 12/12/2016 FINDINGS: There has been orthopedic replacement of the right knee prosthesis. There are anterior skin mary and there is a superior surgical drain. No fracture. No dislocation. IMPRESSION: Good alignment to the femoral and tibial components of the right knee prosthesis. Electronically signed by Santi Osborn 01/15/2017 1:04 PM
[2017-01-15] MEDS ORDERED: MILK OF MAGNESIA PO PRN (14:43)
[2017-01-15] MEDS ORDERED: ZOFRAN PO PRN (14:43)
[2017-01-15] MEDS ORDERED: ZOFRAN IV PRN (14:43)
[2017-01-15] MEDS: NS 1,000 ML IV SCH (15:49)
[2017-01-15] MEDS: NEURONTIN PO SCH ×2 (15:49→20:40)
[2017-01-15] MEDS: MACROBID PO SCH ×2 (15:49→20:40)
[2017-01-15] MEDS: IMDUR PO SCH (15:50)
[2017-01-15] MEDS: KLOR-CON PO SCH (15:50)
[2017-01-15] MEDS: DILAUDID IV PRN ×2 (16:28→23:23)
[2017-01-15 16:29] LABS: PROTIME 10.5 Seconds (9.2-11.7)
[2017-01-15] MEDS: REQUIP PO SCH (18:07)
[2017-01-15] MEDS: TYLENOL PO SCH (18:07)
[2017-01-15] MEDS: MIRAPEX PO SCH (18:11)
[2017-01-15] MEDS: PERIDEX MT SCH (20:40)
[2017-01-15] MEDS: OXY IR PO PRN (20:41)
[2017-01-15] MEDS: ATIVAN PO SCH (20:41)
[2017-01-15] MEDS: COLACE PO SCH (20:41)
[2017-01-15] MEDS: COUMADIN PO SCH (20:42)
[2017-01-15] MEDS ORDERED: VANCOMYCIN 1 GM/NS 1 GM/250 ML IVPB IV ONE (22:00)
--- NOTE | 2017-01-16 03:37 | OPERATIVE NOTE ---
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 PROCEDURE: Revision right total knee arthroplasty with a DePuy Sigma TC3-3 femur with a size 34 mm universal femoral sleeve and a 75 x 14 universal fluted stem, and 15 mm revision MTP thick tray with a 45 mm metaphyseal sleeve with a 75 x 12 universal fluted stem, and a 22.5 mm rotating platform TC3 tibial insert. SURGEON: Fabian Santo MD. CONTRACT DESIGNER: CAL Alvarez. SEC[employer] STATE GAME WARDEN: Elie Thomas RN. ANESTHESIA: General. IV FLUIDS: Was 2100 mL lactated Ringer's. ESTIMATED BLOOD LOSS: 75 mL. TOURNIQUET TIME: 120 minutes at 350 mmHg. COMPLICATIONS: None. INDICATIONS: The patient is a 81-year-old female with a chronic history of pain and discomfort in her right knee. She is 11 years status post right total knee arthroplasty in [place]. She continues with significant pain and discomfort through the years and feelings of giving way and buckling. On physical exam the patient had findings consistent with instability. Given the patient's continued pain and discomfort, I recommended she proceed with revision right total knee arthroplasty was offered. Risks and benefits of surgery were explained, including the risks of anesthesia, , bleeding, infection, failure to relieve pain, postoperative stiffness, nerve injury, blood clots, and other imponderables. All questions were answered. Patient and family wished to proceed with surgery. DETAIL OF THE OPERATION: Patient was taken to the operating room and placed supine on the operating table. Once adequate anesthesia was obtained, patient's right lower extremity was subsequently prepped and draped in the usual sterile fashion. An Esmarch was used to exsanguinate the right lower extremity and the tourniquet was inflated to 350 mmHg. A standard anteromedial incision was made through the previous surgical incision. The incision was carried down through the subcutaneous tissue. A standard medial parapatellar arthrotomy was then performed. Intraoperative cultures were obtained. The gram stain was negative. The polyethylene component was then removed. A the same time an osteotome was used circumferentially around the distal femoral component and this was removed without difficulty. Osteotome was used to remove the cement as well. In a likewise fashion, the tibial component was then removed with an osteotome as well as cement. After that had been performed, attention then turned to the intramedullary canal of the tibia. Reaming was then conducted. This was then over-reamed proximally. A 12 mm diameter stem appeared to be the correct size. Sequential broaching was then performed up to a size 45 mm metaphyseal sleeve and had good purchase. It was then countersunk a few millimeters and resection was then performed of the proximal tibia. After this had been performed, the trial stem and size 4 tibial tray was then placed in metaphyseal sleeve and a stem. Attention then turned to the proximal femur where intramedullary reaming was conducted. Sequential broaching was then performed with a size 34 mm universal fluted femoral sleeve and good purchase. The distal femoral cutting block was placed in position and the distal femoral cut was performed. A box cutting guide was then placed in position. Anterior, posterior, and chamfer cuts were then made. However, prior to making resections, it was set at 90 degrees and a spacer block was placed in order to determine the rotation. The patient required a 4 mm posterior augmentation on medial and lateral femoral condyle. Box cutting guide was then placed and the box cut was performed across the stem and sleeve were then placed in position and had a good fit. The trial component were then replaced. The patient did require some laxity and a trial with a 15 mm tibial sleeve and 22.5 component and had good soft tissue balancing and stability. Trial components were then removed. Copiously irrigated with antibiotic pulsatile lavage while the components were assembled on the back table. Sequential cementing was then performed on the superior aspect of the proximal tibia and the size 4, 50 mm thick tray with the 45 mm metaphyseal sleeve a 75 x 12 universal fluted stem was impacted in position. Excess cement was removed with a [place]. After this had been performed, a size 3 femoral component with the 34 mm universal femoral sleeve and a 75 x 14 universal fluted stem was impacted in the femur with 4 mm posterior augmentation medially and laterally. Excess cement was removed with a [place]. A trial tibial insert was then placed and full extension was maintained until the cement had cured. Exparel was placed in the deep soft tissue, as well as the subcutaneous tissue after the cement had cured. The 22.5 mm tibial component appeared to be the correct size and had good soft tissue balancing. This was removed. Exparel was then placed in the posterior capsule. Copious irrigation then performed once again with antibiotic pulsatile lavage. A 22.5 mm rotating platform tibial insert was then placed and had good soft tissue balancing and good stability. A 1/8 Hemovac drain was placed and was not sewn in. Copious irrigation then performed once again with antibiotic pulsatile lavage. Number 1 Vicryl was then used to repair the arthrotomy, followed by 2-0 Vicryl to repair the subcutaneous tissue. This was followed by skin mary. Adaptic, sterile 4 x 4's, Webril, a cryo unit and Tanmay wrap was applied to the right lower extremity. Patient tolerated the procedure well with no complications. She was transferred to the recovery room in stable condition. cc: Fabian Santo MD MTDD
[2017-01-16] MEDS: TYLENOL PO SCH ×5 (04:38→23:45)
[2017-01-16 05:56] LABS: HEMATOCRIT 32.7 % (37.0-47.0); HEMOGLOBIN 10.1 g/dL (12.0-16.0)
[2017-01-16 06:11] LABS: PROTIME 10.5 Seconds (9.2-11.7)
[2017-01-16 06:17] LABS: CALCIUM 8.4 mg/dL (8.8-10.2); POTASSIUM 5.1 mmol/L (3.5-5.1)
[2017-01-16] MEDS: OXY IR PO PRN ×2 (06:19→10:15)
[2017-01-16] MEDS: XARELTO PO SCH (06:19)
--- NOTE | 2017-01-16 06:56 | PROGRESS NOTE ---
DATE: 01/16/2017 SUBJECTIVE: The patient is a pleasant 81-year-old female who is 1 day status post revision right total knee arthroplasty. She is currently resting comfortably this morning. OBJECTIVE: On physical exam of the patient's right lower extremity, her dressing is intact. Her calf is soft. She has active dorsiflexion and plantar flexion. Her hemoglobin is 10.1, hematocrit is 32.7. IMPRESSION: Postop day #1 status post revision right total knee arthroplasty. PLAN: At this point, I discussed treatment options with the patient. At this time, we will change her dressing, discontinue her drain and [place]. We will also Hep-Lock her IV. We will mobilize physical therapy. We will consult [facility] Director for discharge planning for inpatient rehabilitation. cc: Fabian Santo MD
[2017-01-16] MEDS: LIPITOR PO SCH (10:15)
[2017-01-16] MEDS: MACROBID PO SCH ×2 (10:15→22:44)
[2017-01-16] MEDS: PERIDEX MT SCH ×2 (10:15→22:44)
[2017-01-16] MEDS: IMDUR PO SCH (10:15)
[2017-01-16] MEDS: COLACE PO SCH ×2 (10:15→22:44)
[2017-01-16] MEDS: KLOR-CON PO SCH (10:16)
[2017-01-16] MEDS: PEPCID PO SCH (10:33)
[2017-01-16] MEDS: NEURONTIN PO SCH ×2 (10:33→22:44)
[2017-01-16] MEDS: DILAUDID IV PRN ×4 (12:26→23:44)
[2017-01-16] MEDS: REQUIP PO SCH (18:24)
[2017-01-16] MEDS: MIRAPEX PO SCH (18:24)
[2017-01-16] MEDS: ATIVAN PO SCH (22:44)
[2017-01-16] MEDS: COUMADIN PO SCH (22:44)
[2017-01-17] MEDS: DILAUDID IV PRN ×6 (04:17→22:34)
[2017-01-17] MEDS: TYLENOL PO SCH ×3 (04:59→18:05)
[2017-01-17] MEDS: XARELTO PO SCH (04:59)
[2017-01-17] MEDS: OXY IR PO PRN (05:00)
[2017-01-17] MEDS: NS 1,000 ML IV SCH ×2 (05:02→18:03)
[2017-01-17 05:45] LABS: HEMATOCRIT 30.4 % (37.0-47.0); HEMOGLOBIN 9.4 g/dL (12.0-16.0)
[2017-01-17 05:56] LABS: INR 1.12; PROTIME 11.9 Seconds (9.2-11.7)
[2017-01-17] MEDS ORDERED: DEMEROL PO PRN (06:18)
[2017-01-17] MEDS: DEMEROL PO PRN ×4 (06:42→22:01)
--- NOTE | 2017-01-17 07:13 | PROGRESS NOTE ---
DATE: 01/17/2017 SUBJECTIVE: The patient is a pleasant 81-year-old female who is 2 days status post revision right total knee arthroplasty. She is still continuing with pain and discomfort. She also has some chronic back pain as well. OBJECTIVE: On physical exam, the patient's right knee wound looks good. There are no signs of infection. She is able to perform a straight leg raise. Calf is soft. She has active dorsiflexion and plantar flexion. Her hemoglobin is 9.4 and 30.4. IMPRESSION: Postop day #1 status post right revision of right total knee arthroplasty. PLAN: At this time, the patient will continue progressing with physical therapy. It is felt that she would benefit from inpatient rehabilitation. The patient and patient's family are agreeable to this. We will plan on discharge to rehab tomorrow. cc: Fabian Santo MD
[2017-01-17] MEDS: NEURONTIN PO SCH ×2 (08:15→22:01)
[2017-01-17] MEDS: LIPITOR PO SCH (08:17)
[2017-01-17] MEDS: PERIDEX MT SCH ×2 (08:18→21:58)
[2017-01-17] MEDS: IMDUR PO SCH (08:18)
[2017-01-17] MEDS: COLACE PO SCH ×2 (08:18→21:58)
[2017-01-17] MEDS: KLOR-CON PO SCH (08:18)
[2017-01-17] MEDS: MACROBID PO SCH ×2 (08:18→21:58)
[2017-01-17] MEDS: PEPCID PO SCH (08:18)
--- NOTE | 2017-01-17 13:05 | DISCHARGE SUMMARY ---
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 BRIEF HISTORY: Patient is a 81-year-old female with a chronic history of worsening pain and discomfort in her right knee. She is status post right total knee arthroplasty 11 years ago in [place]. The patient continued with significant pain and discomfort through the years and feeling of giving way and buckling. She had clinical findings consistent with instability. Given patient's continued discomfort, a recommendation to proceed with revision right total knee arthroplasty was offered. Risks and benefits of surgery explained. All questions were answered. HOSPITAL COURSE AND TREATMENT: Patient was admitted to the hospital and underwent right revision right total knee arthroplasty. She tolerated the procedure well. By postoperative day 2, her hemoglobin and hematocrit had stabilized to 9.4 and 30.4 and she was asymptomatic. The patient was slow to mobilize with physical therapy. It was felt she would benefit from inpatient rehabilitation. The patient and family agreeable to this. Prior to discharge, the patient is afebrile, tolerating a regular diet. Wound looked good. There are no signs or symptoms of infection. DISCHARGE MEDICATIONS: 1. Properidine 50 mg 1-2 p.o. q.4 hours p.r.n. pain. 2. Xarelto 10 mg p.o. daily x2 weeks. For remaining medications, please see medication list. DISCHARGE INSTRUCTIONS: 1. The patient will be discharged for inpatient rehabilitation. 2. Consult physical therapy for full weightbearing right lower extremity and gait training and range of motion per total knee protocol. 3. KAYLA hernandez on 01/29/2017. 4. Patient will follow up in the office in 3-4 weeks. cc: Fabian Santo MD
--- NOTE | 2017-01-17 15:35 | Diag Imaging Result Doc PS360 ---
CHEST-1 VIEW - 01/17/2017 INDICATION: rehab TECHNIQUE: COMPARISON: 09/03/2016 FINDINGS: Stable left-sided pacemaker. Heart size and pulmonary vascularity is normal. Stable calcified granulomas in the right lung base and hilum. No focal infiltrates, pneumothorax, or pleural effusion. IMPRESSION: No active disease. Electronically signed by Marco Gilbert 01/17/2017 3:33 PM
[2017-01-17] MEDS: REQUIP PO SCH (18:05)
[2017-01-17] MEDS: MIRAPEX PO SCH (18:05)
[2017-01-17] MEDS: ATIVAN PO SCH (21:58)
[2017-01-17] MEDS: COUMADIN PO SCH (21:58)
[2017-01-18] MEDS: DEMEROL PO PRN ×2 (02:43→06:38)
[2017-01-18] MEDS: TYLENOL PO SCH ×2 (05:01→05:02)
[2017-01-18] MEDS: XARELTO PO SCH (05:02)
[2017-01-18 05:56] LABS: HEMATOCRIT 32.1 % (37.0-47.0); HEMOGLOBIN 9.8 g/dL (12.0-16.0)
[2017-01-18 06:33] LABS: INR 1.69; PROTIME 18.4 Seconds (9.2-11.7)
[2017-01-18 08:03] VITALS: BP 123/46
[2017-01-18] MEDS: PEPCID PO SCH (08:48)
[2017-01-18] MEDS: IMDUR PO SCH (08:48)
[2017-01-18] MEDS: LIPITOR PO SCH (08:48)
[2017-01-18] MEDS: PERIDEX MT SCH (08:48)
[2017-01-18] MEDS: KLOR-CON PO SCH (08:48)
[2017-01-18] MEDS: NEURONTIN PO SCH (08:48)
[2017-01-18] MEDS: COLACE PO SCH (08:48)
[2017-01-18] MEDS: MACROBID PO SCH (08:48)
[2017-01-18] MEDS: DILAUDID IV PRN (08:50)
== END 2017-01-18 09:00 ==
LOC: SURHOLD 07:50 → 4N 13:51
PROVIDERS: ADMIT Orthopaedic Surgery Adult Reconstructive Orthopaedic Surgery; ATTEND Orthopaedic Surgery Adult Reconstructive Orthopaedic Surgery

== ENCOUNTER 2018-06-11 18:39 | Inpatient (IN) ==
--- NOTE | 2018-06-11 19:24 | Diag Imaging Result Doc PS360 ---
EXAM: CHEST-2 VIEWS 06/11/2018 HISTORY: CP TECHNIQUE: PA and lateral chest COMMENT: The inspiration is better than on 05/02/2018 and the opacities which were previously present over the lower lung canales have resolved. There is no evidence of acute cardiac or pulmonary disease. There is probable COPD. IMPRESSION: No acute disease. Electronically signed by Viktor Clifford 06/11/2018 7:22 PM
[2018-06-11 19:31] LABS: BASO# 0.07 X1000 (0.0-0.2); BASO% 0.4 % (0.0-0.8); EOS# 8.18 X1000 (0.0-0.7); EOS% 50.7 % (0.0-10.0); HEMATOCRIT 36.4 % (37.0-47.0); HEMOGLOBIN 11.2 g/dL (12.0-16.0); IMM GRAN# 0.04 X1000 (0.0-0.04); IMM GRAN% 0.2 % (0.0-0.5); LYMPH# 2.98 X1000 (1.2-3.4); LYMPH% 18.5 % (20.5-51.1); MCH 24.9 PG (27-31); MCHC 30.8 g/dL (33-37); MCV 80.9 FL (81-99); MONO# 0.77 X1000 (0.11-0.59); MONO% 4.8 % (1.7-9.3); MPV 9.7 FL (7.4-10.4); NEUT# 4.08 X1000 (1.4-6.5); NEUT% 25.4 % (42.2-75.2); PLT 319 X1000 (130-400); RDW 16.4 % (11.5-14.5); WBC 16.12 X1000 (4.8-10.8)
[2018-06-11 19:32] LABS: INR 2.03; PROTIME 24.5 Seconds (11.0-16.0)
[2018-06-11 19:33] LABS: PTT 54.1 Seconds (22.3-41.8)
[2018-06-11 20:02] LABS: ALBUMIN 4.1 g/dL (3.5-5.0); ALKALINE PHOSPHATASE 103 U/L (32-104); BUN 31 mg/dL (8-22); CALCIUM 9.6 mg/dL (8.8-10.2); CHLORIDE 96 mmol/L (98-107); CK PROFILE 69 U/L (24-173); CREATININE 1.6 mg/dL (0.5-0.9); ESTIMATED GFR 31; GLUCOSE 133 mg/dL (70-104); GOT 17 U/L (10-30); GPT 12 U/L (10-36); POTASSIUM 5.8 mmol/L (3.5-5.1); SODIUM 130 mmol/L (136-145); TCO2 21 mmol/L (25-35); TOTAL BILIRUBIN < 0.15 mg/dL (0.20-1.00)
[2018-06-11 20:09] LABS: AGAP 13
[2018-06-11 20:10] LABS: COSMO 269
[2018-06-11 20:20] LABS: TOTAL PROTEIN 7.4 g/dL (6.3-8.3)
[2018-06-11 20:22] LABS: ALB/GLOB RATIO 1.2
[2018-06-11] MEDS ORDERED: NS 1,000 ML IV ONE ×2 (20:29)
[2018-06-11] MEDS ORDERED: ROCEPHIN 1 GM in NS 50 ML IV ONE (20:30)
[2018-06-11 22:11] LABS: URINE SOURCE CATH
[2018-06-11 22:20] LABS: BILIRUBIN URINE NEGATIVE (NEGATIVE); BLOOD URINE NEGATIVE (NEGATIVE); COLOR YELLOW; GLUCOSE URINE NEGATIVE (NEGATIVE); KETONE URINE NEGATIVE (NEGATIVE); LEUKOCYTES URINE MODERATE (NEGATIVE); NITRITE URINE POSITIVE (NEGATIVE); PROTEIN URINE 30 mg/dL (NEGATIVE); SP GRAVITY URINE 1.017; TURBIDITY URINE CLEAR (CLEAR); UR EPITHELIAL CELLS <10 /HPF (<10); URINE BACTERIA 4+ /HPF; URINE RBC <10 /HPF (<10); URINE WBC TNTC /HPF (<10); UROBILINOGEN URINE NORMAL (NORMAL)
[2018-06-11] MEDS ORDERED: COREG PO ONE (23:59)
[2018-06-11] MEDS ORDERED: NS 1,000 ML IV SCH (23:59)
[2018-06-11] MEDS ORDERED: TYLENOL PO PRN (23:59)
[2018-06-11] MEDS ORDERED: ZOFRAN IV PRN (23:59)
--- NOTE | 2018-06-12 01:18 | PROVIDER DOCUMENTATION ---
This chart was entered by Shireen Alvarez Scribe, acting as scribe for Niyah Staples MD. HPI-General Adult - General Chief Complaint: Abnormal Lab[s] Stated Complaint: POTASSIUM IS ABNORMAL(PER ) Time Seen by Provider: 06/11/18 20:12 Source: patient Allergies/Adverse Reactions: Patient Allergies Allergy/AdvReac Type Severity Reaction Status Date / Time carbidopa [From Sinemet] Allergy Intermediate RASH Verified 06/11/18 21:15 levodopa [From Sinemet] Allergy Intermediate RASH Verified 06/11/18 21:15 Penicillins Allergy Intermediate RASH Verified 06/11/18 21:15 streptomycin Allergy Intermediate RASH Verified 06/11/18 21:15 diltiazem HCl * Allergy Unknown Unknown Verified 06/11/18 21:15 [From Cardizem] rasagiline mesylate * Allergy Unknown Unknown Verified 06/11/18 21:15 [From Azilect] sotalol AdvReac Intermediate "insomnia" Verified 06/11/18 21:15 Home Medications: Home Medication List Medication Instructions Recorded Confirmed Last Taken Type Aspirin 81 mg PO QAM 01/30/15 06/11/18 06/11/18 History Isosorbide Mononitrate E.r. [Imdur] 30 mg PO QAM 08/22/15 06/11/18 06/11/18 History Nitroglycerin [Nitrostat] 0.4 mg SL Q5M PRN PRN 08/22/15 06/11/18 Unknown History Gabapentin 300 mg PO TID 01/09/17 06/11/18 06/11/18 12:00 History Trazodone [Desyrel] 200 mg PO QHS 01/15/17 06/11/18 06/10/18 History Carvedilol 12.5 mg PO BID 12/30/17 06/11/18 06/11/18 09:00 History Doxepin [Sinequan] 10 mg PO HS 12/30/17 06/11/18 06/10/18 History Montelukast Sodium 10 mg PO HS 12/30/17 06/11/18 06/10/18 History Primidone 50 mg PO BID 12/30/17 06/11/18 06/11/18 09:00 History Iron Carbonyl/Ascorbic Acid 1 ea PO BID #120 tab 04/24/18 06/11/18 06/11/18 09: 00 Rx [Icar-C] Pantoprazole [Protonix] 40 mg PO DAILY@0700 #90 tab 04/24/18 06/11/18 06/11/18 Rx Acetaminophen [Tylenol] 650 mg PO Q6H PRN PRN tablet 05/20/18 06/11/18 Unknown Rx Hydrocodone/APAP 7.5 mg/325 mg 1 ea PO Q4H PRN PRN #20 tab 05/20/18 06/11/18 Unknown Rx [[place]-7.5] Magnesium Oxide [Mag-Ox] 400 mg PO BID #60 tab 05/20/18 06/11/18 06/11/18 09:00 Rx Duloxetine [Cymbalta] 1 cap PO BID 06/11/18 06/11/18 06/11/18 09:00 History Escitalopram [Lexapro] 1 tab PO BID 06/11/18 06/11/18 06/11/18 09:00 History Flavoxate [Urispas] 1 tab PO BID 06/11/18 06/11/18 06/11/18 09:00 History Lidocaine 5% Patch [Lidoderm] 1 patch TOP DAILY PRN 06/11/18 06/11/18 Unknown History Losartan Potassium 1 tab PO QAM 06/11/18 06/11/18 06/11/18 History Multivitamins/Minerals [Centrum 1 each PO QAM 06/11/18 06/11/18 06/11/18 History Silver] Naproxen Sodium [Aleve] 1 cap PO QAM 06/11/18 06/11/18 06/11/18 History Nitrofurantoin Monohyd/M-Cryst 1 cap PO BID 06/11/18 06/11/18 06/11/18 09:00 History [Nitrofurantoin Sauk-Mcr 100 mg] Potassium Chloride 1 tab PO QAM 06/11/18 06/11/18 06/11/18 History Ropinirole [Requip] 1 tab PO QHS 06/11/18 06/11/18 06/10/18 History Warfarin [Coumadin] 6 mg PO QHS 06/11/18 06/11/18 06/10/18 History - History of Present Illness -Gen Adult Nature of Presenting Problems: pt is a 82 yr old female presenting with complaint of elevated potassium per Dr Fields. pt reports she was seen by Dr Fields this AM and had lab work done, was called this afternoon and told to come to ER due to elevated potassium level. pt had colon resection 04/18/18. pt denies any complaints aside from occasional dysuria. Location of Pain/Injury: reports: none Pain Radiation: reports: no radiation Quality of Pain: reports: none Onset/Duration: reports: unsure Timing: reports: still present Context/Activities at Onset: reports: light activity Modifying Factors: improves with: nothing Associated Symptoms: reports: genitourinary problems (occasional dysuria). denies: back/neck pain, chest pain, diarrhea, fever/chills, nausea, vomiting Recently seen or treated by another doctor?: Yes Review of Systems - Adult - REVIEW OF SYSTEMS - ADULT Constitutional: reports: william. denies: chills, fever Eyes: reports: no symptoms reported Ears, Nose, Mouth & Throat: reports: no symptoms reported Cardiovascular: denies: chest pain, palpitations, syncope Respiratory: denies: cough, shortness of breath, wheezing Gastrointestinal: denies: abdominal pain, diarrhea, nausea, vomiting Genitourinary: reports: dysuria (occasional). denies: frequency, flank pain Musculoskeletal: denies: back pain, muscle aches, neck pain Integumentary: reports: no symptoms reported Neurological: denies: dizziness/vertigo, headache/migraines Psychiatric: reports: no symptoms reported Endocrine: reports: no symptoms reported Hematologic/Lymphatic: reports: no symptoms reported Allergic/Immunologic: reports: no symptoms reported All Other Systems: Reviewed and Negative Past History - Adult - PAST MEDICAL HISTORY-ADULT Review of Records: reports: Old Records Reviewed, Nursing Assessment Review, Medications Reviewed, Social history reviewed & non-contributory. Major Childhood Illnesses: reports: denies history Cardiovascular: reports: cardiac disease (multiple cardiac stents), HTN, hyperlipidemia, pacemaker Respiratory: reports: denies history Gastrointestinal: reports: denies history Obstetrical/Gynecological: reports: denies history Genitourinary: reports: denies history Musculoskeletal: reports: arthritis, orthopedic injury Neurological: reports: dementia, Parkinson's Psychiatric: reports: anxiety Endocrine/Immune: reports: denies history Other Conditions: reports: denies history - PRIOR SURGERIES/PROCEDURES Surgical/Procedure History: reports: reviewed, not pertinent, hysterectomy, joint replacement - PRIOR HOSPITALIZATIONS Prior Hospitalizations: reports: for other non-related - IMMUNIZATION STATUS Childhood Immunizations: See Nurse Assessment Flu Vaccine: See Nurse Assessment - FAMILY HISTORY Family History: reviewed, not pertinent - SOCIAL HISTORY Smoking: denies Substance Use: denies Living Situation: family Physical Exam-General - PHYSICAL EXAM-ADULT Initial Vital Signs Reviewed: Yes - CONSTITUTIONAL General Appearance: alert, no apparent distress, thin - EYES Eyes: PERRL/EOMI - HEAD, EARS, NOSE, MOUTH & THROAT HENMT: normocephalic/atraumatic, moist mucous membranes - NECK Neck: non-tender, full range of motion, supple - RESPIRATORY Respiratory: chest non-tender, lungs clear - CARDIOVASCULAR Cardiovascular: normal peripheral pulses, regular rate, rhythm, no edema - GASTROINTESTINAL (ABDOMEN) Abdominal Exam: normal bowel sounds, soft, other (large ecchymotic area to left abdomen after taking Heparin injections. colostomy bag RLQ) - LYMPHATIC Lymphatic: no adenopathy - MUSCULOSKELETAL Back Exam: normal inspection, no CVA tenderness, no vertebral tenderness Extremity: normal range of motion, non-tender, normal gait, normal inspection - SKIN Integumentary: normal color, normal turgor, warm/dry - NEUROLOGIC Neurologic: grossly normal, no motor/sensory deficits - PSYCHIATRIC Psych/Mental Status: normal mood/affect, normal thought content, normal thought process, oriented x 3 Progress - PLAN OF CARE/RESULTS Progress/Plan/Lab Results: Vital Signs - 8 hr 06/11/18 18:57 Temperature 97.2 F L Pulse Rate 103 H Respiratory Rate 17 Blood Pressure 129/62 O2 Sat by Pulse Oximetry 97 Laboratory Results - last 24 hr 06/11/18 06/11/18 06/11/18 19:11 19:11 19:11 WBC 16.12 H RBC 4.50 Hgb 11.2 L Hct 36.4 L MCV 80.9 L MCH 24.9 L MCHC 30.8 L RDW Std Deviation 16.4 H Plt Count 319 MPV 9.7 Immature Gran % (Auto) 0.2 Neut % (Auto) 25.4 L Lymph % (Auto) 18.5 L Sauk % (Auto) 4.8 Eos % (Auto) 50.7 H Baso % (Auto) 0.4 Immature Gran # (Auto) 0.04 Neut # (Auto) 4.08 Lymph # (Auto) 2.98 Sauk # (Auto) 0.77 H Eos # (Auto) 8.18 H Baso # (Auto) 0.07 PT INR PTT (Actin FS) Sodium 130 L Potassium 5.8 H Chloride 96 L Carbon Dioxide 21 L Anion Gap 13 BUN 31 H Creatinine 1.6 H Estimated GFR/1.73 m2 31 BUN/Creatinine Ratio 19 Glucose 133 H Calculated Osmolality 269 Calcium 9.6 Total Bilirubin < 0.15 L AST 17 ALT 12 Alkaline Phosphatase 103 Creatine Kinase 69 Troponin T [id number]-Y-Hjvqdjxgnok Pept 2340 H Total Protein 7.4 Albumin 4.1 Globulin 3.3 Albumin/Globulin Ratio 1.2 06/11/18 06/11/18 19:11 19:11 WBC RBC Hgb Hct MCV MCH MCHC RDW Std Deviation Plt Count MPV Immature Gran % (Auto) Neut % (Auto) Lymph % (Auto) Sauk % (Auto) Eos % (Auto) Baso % (Auto) Immature Gran # (Auto) Neut # (Auto) Lymph # (Auto) Sauk # (Auto) Eos # (Auto) Baso # (Auto) PT 24.5 H INR 2.03 PTT (Actin FS) 54.1 H Sodium Potassium Chloride Carbon Dioxide Anion Gap BUN Creatinine Estimated GFR/1.73 m2 BUN/Creatinine Ratio Glucose Calculated Osmolality Calcium Total Bilirubin AST ALT Alkaline Phosphatase Creatine Kinase Troponin T < 0.010 Zop-J-Hdqichdmxcv Pept Total Protein Albumin Globulin Albumin/Globulin Ratio Orders Category Date Time Status Cardiac Monitoring DIRECTED Care 06/11/18 19:04 Active Nursing- Obtain EKG once Care 06/11/18 20:15 Active Saline Loc NOW Care 06/11/18 19:04 Active CHEST-2 VIEWS [RAD] Stat Exams 06/11/18 19:04 Completed BLOOD CULTURE [BLDCUL] Stat Lab 06/11/18 20:31 Uncollected CBC WITH ELECTRONIC DIFF [HEME] Stat Lab 06/11/18 19:11 Completed CK PROFILE [SP CHEM] Stat Lab 06/11/18 19:11 Completed COMPREHENSIVE METABOLIC PANEL [CHEM] Stat Lab 06/11/18 19:11 Completed LACTATE, PLASMA [CHEM] Stat Lab 06/11/18 20:30 Uncollected PRO B-NATRIURETIC PEPTIDE Stat Lab 06/11/18 19:11 Completed PROTIME WITH INR [COAG] Stat Lab 06/11/18 19:11 Completed PTT [COAG] Stat Lab 06/11/18 19:11 Completed TROPONIN T Stat Lab 06/11/18 19:11 Completed URINALYSIS W/POSS RFLX CULT [URINALYSIS] Stat Lab 06/11/18 20:32 Uncollected 0.9% Sodium Chloride Inj [Ns] 1,000 ml Med 06/11/18 20:29 Active IV 999 mls/hr 0.9% Sodium Chloride Inj [Ns] 1,000 ml Med 06/11/18 20:29 Active IV 999 mls/hr CefTRIAXONE [Rocephin] 1 gm Med 06/11/18 20:30 Active 0.9% Sodium Chloride Inj [Ns] 50 ml IV NOW Patient care CP/SOB/Palp >45 yrs of Age Stat Oth 06/11/18 19:03 Ordered EKG [EKG] Stat Ther 06/11/18 18:53 Ordered Patient care, assessment and plan discussed with the attending physician Dr. Fabian Branham and he agree with the plan as documented. Result Diagrams: 06/11/18 19:11 06/11/18 19:11 - XRAY 1 XRAY Study: Chest Impression: Abnormal ( Signed EXAM: CHEST-2 VIEWS 06/11/2018 HISTORY: CP TECHNIQUE: PA and lateral chest COMMENT: The inspiration is better than on 05/02/2018 and the opacities which were previously present over the lower lung canales have resolved. There is no evidence of acute cardiac or pulmonary disease. There is probable COPD. IMPRESSION: No acute disease. Electronically signed by Viktor Clifford 06/11/2018 7:22 PM 06/11/181921 Interpreting Physician: Viktor Clifford MD Dictated Date/Time: 1921 cc: Fabian Branham MD; David Olguin MD) Comparison with other Films: changes noted (05/02/18- improved since) - CONSULTS/PCP/HOSPITALIST Notification #1 *Consult/PCP/Hospitalist*: Dr. Kelly Time Discussed: 21:26 Consult Disposition: Admit (Accepted.) Departure - Departure Date of Disposition Decision: 06/11/18 Time of Disposition Decision: 21:24 DIAGNOSIS: KEZIA (acute kidney injury), Hyperkalemia Sepsis Qualifiers: Sepsis type: sepsis due to unspecified organism Qualified Code(s): A41.9 - Sepsis, unspecified organism Disposition: ADMITTED INPATIENT 09 Certified Medical Emergency: Emergent Condition: Serious - Critical Care Note This patient required my direct & personal management of CC.: No Attestation - Physician/ AUGUSTUS Attestation Patient care was provided by Advanced Practice Provider:: No The physician spent face to face time with patient:: Yes Advanced Practice Provider documentation review:: Supervising physician onsite and consulted in the evaluation and care of this patient. The physician did have a face to face encounter with the patient. This chart was documented by the indicated scribe, (Shireen Alvarez Scribe) and accurately reflects the services I performed and decisions made by me, Niyah Staples MD, as attested by the provider's signature.
--- NOTE | 2018-06-12 06:38 | HISTORY AND PHYSICAL ---
PRIMARY CARE PHYSICIAN: David Olguin MD REASON FOR ADMISSION: Abnormal labs, called from doctor's office to admit. HISTORY OF PRESENT ILLNESS: Ms Stephane Jeronimo is an 82-year-old lady who was recently discharged from [facility], formerly known as [facility], less than a week ago. Prior to that time she had been sent there to convalesce following her last admission here on 05/20 due to colostomy bag malfunction and a mesenteric hematoma. According to the , who is at bedside, the patient went to see Dr. Fields, her surgeon, today and some lab work was drawn. By the time they got home the office called them and told them that she needed to go the ER because her labs were profoundly abnormal. The patient herself was asleep. I woke her up and asked her about any fever, any chills, any pain anywhere, any cough, any dysuria or if she had to frequently empty her colostomy bag. All of this she denied. She said she is only here because her doctor told her to come to the hospital. REVIEW OF SYSTEMS: Grossly normal otherwise. ALLERGIES: She is allergic to Cardizem, streptomycin, penicillin, Adalat, sotalol, carbidopa and macrolides. MEDICATIONS: Her home medication list is yet to be reconciled at this point in time, but when she was discharged the last time, she was discharged on: 1. Coreg. 2. Doxepin. 3. Gabapentin. 4. [place]ville. 5. Icar C. 6. Imdur. 7. Magnesium oxide. 8. Singulair. 9. Primidone. 10.Trazodone. 11.Warfarin. 12.Nitroglycerin. 13.Protonix. FAMILY HISTORY: Unchanged from her last admission. No heart disease or diabetes. PAST SURGICAL HISTORY: Notable for right partial colectomy, hysterectomy, kidney stone removal, knee replacement, carpal tunnel surgery. PAST MEDICAL HISTORY: Notable for atrial fibrillation, coronary artery disease , hypertension, hyperlipidemia, familial tremors and peripheral arterial disease. SOCIAL HISTORY: . Does not smoke, drink or use illegal drugs. is at bedside and very attentive. LAB WORK: White count 16,000, up from 10,000 when she was discharged. Hemoglobin 11, hematocrit 36, platelets 319,000. She has no left shift, but she oddly enough has about 50 % eosinophils. Sodium 130, potassium 5.8, bicarbonate 21, gap 13, BUN 31, creatinine 1.6, glucose 133. Troponin is negative. ProBNP 2300. Lactate 1.5. PT 24, INR 2, PTT 54. Chest film shows improved opacities noted from before. PHYSICAL EXAMINATION: GENERAL: She is elderly woman who is laying comfortably in bed. She was asleep, but when I aroused her she was oriented to person, place and time, and denied any pain or any distress. She said she had not been sleeping well for the last couple of days. She had normal mood and affect. VITAL SIGNS: Temperature 97.2, pulse is 103, respiratory rate 17, blood pressure 129/62, 97% on room air. HEENT: Head is normocephalic, atraumatic. Eyes: PERRL, EOMI. She is anicteric, but pale. ENT and oropharyngeal exam is grossly normal. Mild xerostomia. No central cyanosis. NECK: Supple. No JVD, carotid bruit or thyromegaly. She has decreased skin turgor. CHEST: Clear when auscultated. Good entry in both lung canales. CARDIOVASCULAR: First and second heart sounds are heard. No gallops, murmurs or rubs. Rhythm is regular. ABDOMEN: Has a colostomy bag near the right lower quadrant. It is emptying darkish green fecal matter and no blood in the bag. Abdomen is entirely soft. No CVA tenderness. Bowel sounds are normal. No masses appreciated. RECTAL: Deferred. EXTREMITIES: The patient has slightly diminished distal pulses which are regular. They are symmetrical. No clubbing or peripheral cyanosis. No edema. NEUROLOGIC: Grossly intact with no focal motor deficits. SKIN: Intact with decreased turgor. No breakdown, lesions or erythema. There is a large oval hematoma in the left lower quadrant area. MUSCULOSKELETAL: The patient is mildly sarcopenic. ASSESSMENT: 1. Eosinophilic leukocytosis, probable occult allergic reaction. 2. Acute kidney injury probably secondary to poor oral intake. Cannot rule out acute interstitial nephritis. 3. Hyperkalemia secondary to acute kidney injury. 4. Atrial fibrillation. 5. Coronary artery disease. 6. Hypertension. 7. Anemia of chronic inflammation. 8. ?UTI PLAN: The patient will be admitted and hydrated. Hold any potentially nephrotoxic medications. The patient has a high degree of eosinophilia which could indicate some occult allergic response. I am not convinced this patient is septic at all and for now will hold antibiotics pending urinalysis and urine culture. Will order urine eosinophil to further confirm that this patient does have acute interstitial nephritis. In that case one may want to consider steroids or withholding all possible medications that may increase risk risk, i.e. antibiotics. Will continue anticoagulants and Coreg and withhold other medications. Will hold Protonix also as PPIs have been implicated in acute interstitial nephritis. Urinalysis is still pending and we will await to see whether there are any cast forms. If urinalysis does not improve with fluids, consider ruling out autoimmune conditions. Pt. will be started empirically on Maxipime to cover for potential Pseudomonal UTI. cc: MD David Mascorro MD MTDD
--- NOTE | 2018-06-12 07:54 | EKG Report ---
Test Performed on : 06/11/2018 7:03:56 PM Test Reason : ABNORMAL POTASSIUM Blood Pressure : / mmHG Vent. Rate : 104 BPM Atrial Rate : 104 BPM P-R Int : 182 ms QRS Dur : 148 ms QT Int : 392 ms P-R-T Axes : 030 -23 145 degrees QTc Int : 515 ms Atrial-sensed ventricular-paced rhythm Abnormal ECG When compared with ECG of 13-MAY-2018 11:29, Vent. rate has increased BY 29 BPM Unconfirmed Result
[2018-06-12 07:55] LABS: BASO# 0.04 X1000 (0.0-0.2); BASO% 0.3 % (0.0-0.8); EOS# 7.08 X1000 (0.0-0.7); HEMATOCRIT 36.3 % (37.0-47.0); HEMOGLOBIN 10.9 g/dL (12.0-16.0); IMM GRAN# 0.03 X1000 (0.0-0.04); IMM GRAN% 0.2 % (0.0-0.5); LYMPH% 15.8 % (20.5-51.1); MCH 24.9 PG (27-31); MCHC 30.3 g/dL (33-37); MCV 82.4 FL (81-99); MONO# 0.78 X1000 (0.11-0.59); MONO% 5.9 % (1.7-9.3); MPV 9.9 FL (7.4-10.4); NEUT# 3.39 X1000 (1.4-6.5); NEUT% 25.8 % (42.2-75.2); PLT 264 X1000 (130-400); RBC 4.37 XMIL (4.2-5.4); RDW 16.7 % (11.5-14.5); WBC 13.14 X1000 (4.8-10.8)
[2018-06-12 07:59] LABS: CALCIUM 8.4 mg/dL (8.8-10.2); CREATININE 1.2 mg/dL (0.5-0.9); POTASSIUM 5.3 mmol/L (3.5-5.1)
[2018-06-12 08:31] LABS: INR 1.71; PROTIME 21.4 Seconds (11.0-16.0)
[2018-06-12 08:56] LABS: EOS 42 % (1-10); LYMPHS 26 % (21-51); MONO 2 % (1-9); SEGS 30 % (42-75)
[2018-06-12] MEDS ORDERED: IMDUR PO SCH (09:00)
[2018-06-12] MEDS ORDERED: ICAR-C PO SCH (09:00)
[2018-06-12] MEDS ORDERED: CENTRUM SILVER PO SCH (09:00)
[2018-06-12] MEDS ORDERED: MYSOLINE PO SCH (09:00)
[2018-06-12] MEDS ORDERED: NEURONTIN PO SCH (09:00)
[2018-06-12] MEDS ORDERED: COREG PO SCH (09:00)
[2018-06-12] MEDS ORDERED: MAXIPIME 1 GM in NS 50 ML IV SCH (09:00)
--- NOTE | 2018-06-12 09:19 | PROGRESS NOTE ---
DATE: 06/12/2018 SUBJECTIVE: She presented here. She is a patient of Dr. Olguin. She had abnormal lab from the doctor's office. An 82-year-old recently discharged from [facility], formerly known as [facility], less than a week ago. Prior to that time, she had been seen with her convalescent last admission 05/20/2018 due to colostomy bag malfunction, mesenteric hematoma. According to the , who is at bedside, the patient went to see Dr. Fields, her surgeon, and lab work was drawn. By the time she got home from the office, they told them that she needed to go to the ER because her labs were abnormal. The patient was asleep and so she woke up, she was asked if she had any fever, chills or pain anywhere, cough or dysuria, or frequent emptying of colostomy bag. All of this she denied. LABORATORY DATA: On admission, white count was 16,120, hematocrit 36, platelet count 319,000. Chemistries: Sodium 130, potassium 5.8, chloride 96, BUN 31, creatinine 1.6. Calcium 9.6, albumin 4.1. Lactate level 1.5. ASSESSMENT AND PLAN: 1. Eosinophilic leukocytosis, which we suspect may be an occult allergic reaction. 2. Acute kidney injury, probably secondary to poor oral intake and prerenal. This seems to be improving with fluids. 3. Hyperkalemia secondary to acute kidney injury. Potassium has come down. 4. Atrial fibrillation, rate controlled. 5. Coronary artery disease. 6. Hypertension. 7. Anemia of chronic inflammation suspected. Note that white count has come down to 13,000. On review of her orders, she is on Neurontin 300 mg t.i.d., Coreg 6.25 mg b.i.d., iron carbinol which she takes every other day, isosorbide mononitrate 30 mg q.a.m. They put her on cefepime 1 g q.12, suspecting a urinary tract infection. Urine culture is pending. Blood culture is pending. Continue present regimen. cc: Jonathon Castellon MD
[2018-06-12 12:25] VITALS: BP 141/53
--- NOTE | 2018-06-12 13:36 | DISCHARGE SUMMARY ---
ADMISSION DATE: 06/11/2018 DISCHARGE DATE: 06/12/2018 HOSPITAL COURSE: This is a patient of Dr. David Olguin. She presented because she had abnormal labs, recently discharged from [facility], which is formerly [facility] less than a week ago. Prior to that time, she had been in convalescence. Her last admission to the hospital was 05/20/2018 due to colostomy bag malfunction and mesenteric hematoma. According to , she is seen by Dr. Fields, her surgeon, who had lab work drawn. Got home when office called and said she needed to go to the emergency room because it had some abnormalities. So, she was admitted really for observation with the: 1. Eosinophilic leukocytosis, probably occult allergic reaction. 2. Acute kidney injury probably secondary to poor oral intake, and I want to rule out interstitial nephritis. 3. Hyperkalemia, acute kidney injury. 4. Atrial fibrillation. 5. Coronary artery disease. 6. Hypertension. 7. Anemia of chronic inflammation. She was given some fluids. White count initially 16,000 yesterday. This morning it was 13,140, hematocrit 36, platelet count 264,000. Chemistries unremarkable. Creatinine had come down from 1.6 to 1.2. She felt good and was wanting to go home. I discussed with Dr. Melo; he would like to let her go home. We will discharge her home. DISCHARGE MEDICATION: Continue home medicines which is Tylenol 650 q. 6 hours p.r.n., aspirin 81 mg a day, carvedilol 12.5 b.i.d., Sinequan 10 mg at bedtime Cymbalta 1 capsule b.i.d., Lexapro 1 tablet b.i.d., Urispas 1 tablet b.i.d. gabapentin 300 mg t.i.d., hydrocodone 7.5 q. 4 hours p.r.n. iron carbinol ascorbic acid 1 b.i.d., isosorbide mononitrate 30 mg q.a.m. lidocaine patch 5% daily as needed, losartan 1 tablet daily magnesium oxide 400 mg b.i.d., Montelukast sodium 10 mg at bedtime, multivitamin 1 a day, naproxen 1 capsule q.a.m., nitrofurantoin she was taking 100 mg b.i.d., Nitrostat 0.4 mg sublingual p.r.n. chest pain, Protonix 40 mg daily, potassium 1 tablet q.a.m. I think we will hold the potassium. Primidone 50 mg b.i.d., Requip 1 at bedtime, trazodone 200 mg at bedtime, and then her Coumadin which was 6 mg daily. Note that her pro time was 21 this morning. So, continue present Coumadin dose. cc: Jonathon Castellon MD
[2018-06-12] MEDS ORDERED: COUMADIN PO SCH (21:00)
--- NOTE | 2018-06-13 01:10 | NEPHROLOGY CONSULTATION ---
DATE: 06/12/2018 REASON FOR CONSULTATION: Hyperkalemia and acute kidney injury. HISTORY OF PRESENT ILLNESS: Ms. 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 These were performed back in March and she has been convalescing since that time. She had a routine office visit yesterday with Dr. Fields at which time laboratory data collected demonstrated acute kidney injury with creatinine 1.6 and potassium of 6.6, she was called back and asked to come to the hospital. She states that from her perspective she felt normal and was not having any new symptoms. Eating well. No nausea or vomiting. No chest pain, palpitation, shortness of breath. She was taking potassium at home as well as taking naproxen and losartan together. No blood in her bowels. No black tarry bowel movements, etc. PAST MEDICAL HISTORY: Includes the above, she also has hypertension and hyperlipidemia. SOCIAL HISTORY: . No tobacco or alcohol. FAMILY HISTORY: Noncontributory. REVIEW OF SYSTEMS: Noncontributory HOME MEDICATIONS: List is reviewed in its entirety with important findings as above. PHYSICAL EXAMINATION: Vital Signs: Blood pressure 141/53, heart rate 100, respirations 16, afebrile. General: She is in no acute distress. Skin: Warm and dry. Heent: Conjunctivae are pink. Pupils are equal. Neck: Veins are not distended. Heart: Regular. No gallops. Lungs: Equal. No crackles or wheezes. Abdomen: Soft, nontender. Bowel sounds are present. Extremities: No edema, clubbing, or cyanosis. IMPRESSION: Acute kidney injury and hyperkalemia. Likely secondary to polypharmacy. Her discharge medications should avoid potassium, losartan, naproxen. We will contact her in order to make these recommendations. cc: Lukas Melo MD
[2018-06-13] MEDS ORDERED: COUMADIN PO SCH (21:00)
== END 2018-06-12 13:32 | disposition home health service (06) | DRG 815 ==
LOC: ED 18:39 → 4N 22:42 → SUATTDRO 22:42
PROVIDERS: ATTEND Emergency Medicine
CPT/HCPCS: 36415; 51701; 71020; 71046; 80048; 80053; 81001; 82550; 83605; 83880; 84134; 84484; 85025; 85610; 85730; 86160; 87040; 87077; 87088; 87186; 87205; 93005; 96374; 99285; A9270; J0692; J0696; J7030; P9612

== ENCOUNTER 2018-07-15 12:30 | Inpatient (IN) ==
[2018-07-24] MEDS ORDERED: XYLOCAINE-MPF 2% ONE (07:19)
[2018-07-24] MEDS ORDERED: NORCURON ONE (07:20)
[2018-07-24] MEDS ORDERED: QUELICIN (DOSE) ONE (07:20)
[2018-07-24] MEDS ORDERED: DIPRIVAN 1% ONE (07:20)
[2018-07-24] MEDS ORDERED: LR 1,000 ML ONE ×2 (08:12→12:40)
[2018-07-24] MEDS ORDERED: PEPCID ONE (08:12)
[2018-07-24] MEDS ORDERED: INVANZ 1 GM/NS 1 GM/50 ML IVPB ONE (08:12)
[2018-07-24] MEDS ORDERED: FENTANYL ONE (08:37)
[2018-07-24 08:56] LABS: INR 0.89; PROTIME 12.7 Seconds (11.0-16.0)
[2018-07-24] MEDS ORDERED: OFIRMEV 1000 MG/ISOTONIC SOLN 1,000 MG/100 ML BOTTLE ONE (09:39)
[2018-07-24] MEDS ORDERED: XYLOCAINE-MPF 1% ONE (09:48)
[2018-07-24] MEDS ORDERED: SENSORCAINE-MPF 0.5%/EPI 1:200,000 ONE (09:48)
[2018-07-24] MEDS ORDERED: DECADRON ONE ×2 (10:01→13:12)
[2018-07-24] MEDS ORDERED: ZOFRAN ONE ×2 (10:01→13:12)
[2018-07-24 10:09] LABS: URINE SOURCE CATH
[2018-07-24 10:14] LABS: BILIRUBIN URINE NEGATIVE (NEGATIVE); BLOOD URINE SMALL (NEGATIVE); COLOR YELLOW; GLUCOSE URINE NEGATIVE (NEGATIVE); KETONE URINE NEGATIVE (NEGATIVE); LEUKOCYTES URINE LARGE (NEGATIVE); NITRITE URINE NEGATIVE (NEGATIVE); PROTEIN URINE 30 mg/dL (NEGATIVE); SP GRAVITY URINE 1.014; TURBIDITY URINE TURBID (CLEAR); UROBILINOGEN URINE NORMAL (NORMAL)
[2018-07-24 10:34] LABS: UR EPITHELIAL CELLS <10 /HPF (<10); URINE BACTERIA NEGATIVE /HPF; URINE WBC TNTC /HPF (<10)
[2018-07-24 10:50] LABS: URINE CASTS NONE SEEN; URINE YEAST NONE SEEN
[2018-07-24] MEDS ORDERED: ROBINUL ONE ×2 (11:07→13:51)
[2018-07-24] MEDS ORDERED: NEOSTIGMINE ONE ×2 (11:07→13:51)
[2018-07-24] MEDS: MORPHINE ONE ×4 (12:46→13:03)
[2018-07-24] MEDS: DILAUDID ONE ×2 (13:18→13:26)
[2018-07-24] MEDS: LR 1,000 ML IV SCH ×2 (16:49→22:01)
[2018-07-24] MEDS: OFIRMEV 1000 MG/ISOTONIC SOLN 1,000 MG/100 ML BOTTLE IV SCH (17:49)
[2018-07-24] MEDS: TEARISOL OPH SOLUTION BOTH EYES SCH ×2 (18:31→21:46)
[2018-07-24] MEDS: ZOFRAN IV PRN (21:44)
[2018-07-24] MEDS: SINEQUAN PO SCH (21:44)
[2018-07-24] MEDS: PERIDEX MT SCH (21:44)
[2018-07-24] MEDS: DESYREL PO SCH (21:44)
[2018-07-24] MEDS: REQUIP PO SCH (21:44)
[2018-07-24] MEDS: NORCO-5 PO PRN (21:44)
[2018-07-24] MEDS: COREG PO SCH (21:45)
[2018-07-24] MEDS: CYMBALTA PO SCH (21:45)
[2018-07-24] MEDS: PROTONIX IV SCH ×2 (21:46→22:02)
--- NOTE | 2018-07-24 22:13 | OPERATIVE NOTE ---
PROCEDURE DATE: 07/24/2018 PREOPERATIVE DIAGNOSIS: History of ischemic colitis. POSTOPERATIVE DIAGNOSIS: History of ischemic colitis. OPERATION: Ileostomy reversal. SURGEON: Daphne Fields MD ANESTHESIA: General. COMPLICATIONS: None. SPECIMENS: 1. Transverse colon. 2. Prior colorectal anastomosis. 3. Ileostomy. INDICATIONS: An 82-year-old female who underwent a right colectomy for ischemic colitis and had an end ileostomy. She has rehabilitated well, and presents for reversal of her ileostomy. OPERATIVE FINDINGS: 1. The transverse colon seemed to have a large area of inflammatory changes centrally. 2. There was an anastomosis between the descending colon and the proximal rectum. PROCEDURE: Risks, benefits and alternatives were discussed with the patient. She consented to the procedure. She was seen preoperatively and the surgical site was confirmed and marked. She was taken to the operating room and placed in supine position. General anesthesia was induced without complication. All bony prominences were padded. Her abdomen was prepped with Betadine and draped in the usual fashion, but prior to this the ileostomy was occluded with a 3-0 Vicryl. After time-out, we made a midline incision and carried this down through the fascia, incising the fascia and extending our incision superior and inferiorly, gaining wide exposure. We then meticulously dissected out, identifying the distal colon stump. Given the findings in the transverse colon, we elected to resect this. We took the middle colic vessels with a LigaSure device and using a RUKHSANA 80 we divided it distally. Through our continued lysis of adhesions, we noticed that there was a staple line here, and we feared that the proximal segment of colon was devascularized. As such, we continued our dissection distally until we were at the proximal rectum at the level of the coalescence of the taeniae. This was well perfused. Another TA blue load stapler was used to excise this. We then had mobilized all of the small bowel, had taken down our ileostomy, and resected the distal portion back to well-perfused ileum. We placed the small bowel into the pelvis adjacent to the proximal rectum, and using an 80 mm blue load stapler we created a stapled [id number] functional end-to-end anastomosis, closing the common enterotomy with a TA blue load. This was well perfused. There was no tension. We imbricated the staple lines with interrupted 3-0 Vicryl sutures and confirmed there was no significant mesenteric defect. The small bowel was lying in a nice neutral position. We irrigated the abdomen copiously and closed the ostomy site with interrupted 0 Vicryl sutures. The midline incision was closed with a running #1 looped PDS suture with internal retention sutures. We did have to debride the fascia in some locations from her previous scar. Hemostasis was confirmed. Counts were correct. We changed our gloves prior to fascial closure and then closed the skin with surgical clips. She tolerated it well. She was awoken and transferred to recovery. I spoke to the family. cc: Daphne Fields MD
[2018-07-25] MEDS: OFIRMEV 1000 MG/ISOTONIC SOLN 1,000 MG/100 ML BOTTLE IV SCH ×3 (00:24→12:09)
[2018-07-25] MEDS: MYSOLINE PO SCH ×3 (00:24→21:24)
[2018-07-25 06:10] LABS: HEMATOCRIT 34.7 % (37.0-47.0); HEMOGLOBIN 10.5 g/dL (12.0-16.0); MCHC 30.3 g/dL (33-37); MCV 85.9 FL (81-99); MPV 9.5 FL (7.4-10.4); RBC 4.04 XMIL (4.2-5.4); RDW 19.3 % (11.5-14.5); WBC 11.3 X1000 (4.8-10.8)
[2018-07-25 06:59] LABS: CALCIUM 8.5 mg/dL (8.8-10.2); POTASSIUM 4.6 mmol/L (3.5-5.1)
[2018-07-25] MEDS: MORPHINE IV PRN ×2 (08:10→12:03)
[2018-07-25] MEDS: MAG-OX PO SCH (08:47)
[2018-07-25] MEDS: NORCO-5 PO PRN (08:47)
[2018-07-25] MEDS: COREG PO SCH ×2 (08:48→21:24)
[2018-07-25] MEDS: CYMBALTA PO SCH ×2 (08:48→21:24)
[2018-07-25] MEDS: IMDUR PO SCH (08:48)
[2018-07-25] MEDS: PERIDEX MT SCH ×2 (08:49→21:24)
[2018-07-25] MEDS: LOVENOX SUBQ SCH (08:49)
[2018-07-25] MEDS: TEARISOL OPH SOLUTION BOTH EYES SCH ×3 (09:00→18:07)
[2018-07-25] MEDS ORDERED: MORPHINE IV ONE (09:58)
[2018-07-25] MEDS: ZOFRAN IV PRN (12:03)
[2018-07-25] MEDS: LR 1,000 ML IV SCH ×3 (12:04→21:25)
--- NOTE | 2018-07-25 13:06 | GENERAL SURGERY PROGRESS NOTE ---
DATE: 07/25/2018 SUBJECTIVE: Patient doing okay. She says she is hurting and she says she does not want to take p.o. pain medicine. She has been hemodynamically stable. No return of bowel function yet. She is on a clear liquid diet. PLAN: From a surgical point of view, I think she is doing okay given the fact she is postop day #1 from ileostomy takedown. We will put her on some IV pain medicine and monitor her closely. cc: MD Daphne Fabian MD
[2018-07-25] MEDS: DILAUDID IV PRN ×5 (14:28→23:16)
[2018-07-25] MEDS: REQUIP PO SCH (21:24)
[2018-07-25] MEDS: SINEQUAN PO SCH (21:24)
[2018-07-25] MEDS: PROTONIX IV SCH (21:24)
[2018-07-25] MEDS: DESYREL PO SCH (21:24)
[2018-07-25] MEDS: SODIUM CHLORIDE 0.9% INJ SCH (21:24)
[2018-07-25] MEDS ORDERED: OFIRMEV 1000 MG/ISOTONIC SOLN 1,000 MG/100 ML BOTTLE IV ONE (22:24)
[2018-07-26] MEDS: TEARISOL OPH SOLUTION BOTH EYES SCH ×7 (00:09→21:33)
[2018-07-26] MEDS: DILAUDID IV PRN ×6 (03:32→21:28)
--- NOTE | 2018-07-26 06:58 | GENERAL SURGERY PROGRESS NOTE ---
DATE: 07/26/2018 SUBJECTIVE: The patient is having issues with pain control. We did switch her over to Dilaudid. That being said, the patient was resting when I came into the room. OBJECTIVE: Vital Signs: The patient is currently afebrile. Her vital signs are stable. General Examination: No acute distress. Resting. Cardiovascular: Regular rate and rhythm. Lungs: Grossly clear. Abdomen: Soft. Appropriately tender. Some bowel sounds auscultated. Laboratory: None this morning. ASSESSMENT AND PLAN: An 82-year-old female status post ileostomy takedown. Postoperative state. At this time, the patient is currently postoperative day #2. Pain control has been somewhat of an issue with her. She also had microbiology that came back as gram-negative rods from her urine. This is likely from when she had her Horton catheter placed. She might just have some persistent colonization. She is getting her Horton catheter removed today anyway. We will see how she symptomatically does. If any kind of venous symptoms persist, we will potentially consider treatment but otherwise, we will just monitor her. cc: MD Daphne Fabian MD
[2018-07-26] MEDS: LR 1,000 ML IV SCH ×3 (07:49→18:14)
[2018-07-26] MEDS: CYMBALTA PO SCH ×2 (08:02→21:30)
[2018-07-26] MEDS: IMDUR PO SCH (08:02)
[2018-07-26] MEDS: PERIDEX MT SCH ×2 (08:02→21:30)
[2018-07-26] MEDS: MYSOLINE PO SCH ×2 (08:03→21:30)
[2018-07-26] MEDS: MAG-OX PO SCH (08:03)
[2018-07-26] MEDS: COREG PO SCH ×2 (08:03→21:31)
[2018-07-26] MEDS: LOVENOX SUBQ SCH (08:03)
[2018-07-26] MEDS: SINEQUAN PO SCH (21:30)
[2018-07-26] MEDS: PROTONIX IV SCH (21:30)
[2018-07-26] MEDS: REQUIP PO SCH (21:30)
[2018-07-26] MEDS: DESYREL PO SCH (21:30)
[2018-07-26] MEDS: SODIUM CHLORIDE 0.9% INJ SCH (21:30)
[2018-07-26] MEDS ORDERED: CALMOSEPTINE OINTMENT TOP PRN (23:32)
[2018-07-27] MEDS: DILAUDID IV PRN ×4 (00:11→19:57)
[2018-07-27] MEDS: LR 1,000 ML IV SCH ×5 (04:41→22:16)
[2018-07-27] MEDS: MYSOLINE PO SCH ×2 (08:18→22:15)
[2018-07-27] MEDS: PERIDEX MT SCH ×2 (08:18→22:15)
[2018-07-27] MEDS: IMDUR PO SCH (08:19)
[2018-07-27] MEDS: MAG-OX PO SCH (08:19)
[2018-07-27] MEDS: LOVENOX SUBQ SCH (08:19)
[2018-07-27] MEDS: CYMBALTA PO SCH ×2 (08:19→22:15)
[2018-07-27] MEDS: COREG PO SCH ×2 (08:19→22:15)
[2018-07-27] MEDS ORDERED: BLISTEX MEDICATED BERRY LIP BALM TOP PRN (12:11)
[2018-07-27] MEDS: SYSTANE EYE DROPS BOTH EYES SCH ×4 (12:50→22:15)
[2018-07-27] MEDS: NORCO-5 PO PRN ×2 (12:55→16:54)
--- NOTE | 2018-07-27 20:57 | PROGRESS NOTE ---
DATE: 07/27/2018 SUBJECTIVE: Doing well. She is beginning to have bowel function. She is tolerating some oral intake. Still not really moving around much with physical therapy. She complains of pain, although she is sleeping usually when you enter the room. I reviewed her medications. She is on lactated Ringer's. She is on prophylactic Lovenox and a PPI and is tolerating a full liquid diet. DIAGNOSTIC STUDIES: No new labs yet this morning. ASSESSMENT AND PLAN: An 82-year-old female status post ileostomy reversal that required a total abdominal colectomy and ileorectal anastomosis. She is doing well. I have encouraged her to be out of bed. We will stop her fluids. Her incision is healing well, and we will plan for her to go home, possibly within the next 24 to 48 hours, depending on her ability to ambulate. She is voiding without a Horton catheter and her IVs look okay and she is on appropriate home medication. cc: Daphne Fields MD
[2018-07-27] MEDS: SODIUM CHLORIDE 0.9% INJ SCH (22:15)
[2018-07-27] MEDS: SINEQUAN PO SCH (22:15)
[2018-07-27] MEDS: REQUIP PO SCH (22:15)
[2018-07-27] MEDS: PROTONIX IV SCH (22:15)
[2018-07-28] MEDS: DESYREL PO SCH ×2 (03:51→20:28)
[2018-07-28] MEDS: LR 1,000 ML IV SCH (06:41)
[2018-07-28] MEDS: IMDUR PO SCH (09:04)
[2018-07-28] MEDS: MAG-OX PO SCH (09:04)
[2018-07-28] MEDS: CYMBALTA PO SCH ×2 (09:04→20:27)
[2018-07-28] MEDS: MYSOLINE PO SCH ×2 (09:04→20:27)
[2018-07-28] MEDS: PERIDEX MT SCH ×2 (09:05→20:28)
[2018-07-28] MEDS: NORCO-5 PO PRN ×2 (09:05→13:36)
[2018-07-28] MEDS: LOVENOX SUBQ SCH (09:05)
[2018-07-28] MEDS: COREG PO SCH ×2 (09:05→20:27)
[2018-07-28] MEDS: SYSTANE EYE DROPS BOTH EYES SCH ×3 (13:37→20:27)
--- NOTE | 2018-07-28 15:35 | GENERAL SURGERY PROGRESS NOTE ---
DATE: 07/28/2018 SUBJECTIVE: Doing well. She had a return of bowel function and had numerous bowel movements overnight. No blood. No fevers. Occasional low-grade tachycardia, but for the most part, it has been well controlled. OBJECTIVE: Vital signs: Blood pressure 117/64. Abdomen: Soft. Incision intact. There is no cellulitis. DIAGNOSTIC STUDIES: No new labs yet this morning. ASSESSMENT AND PLAN: An 82-year-old female status post ileostomy takedown. She is doing well. She has had return of bowel function. I have encouraged her to be out of bed. We will stop all of her IV fluids and normalize her today and plan for home tomorrow. cc: Daphne Fields MD
[2018-07-28] MEDS: PROTONIX IV SCH (20:27)
[2018-07-28] MEDS: SODIUM CHLORIDE 0.9% INJ SCH (20:27)
[2018-07-28] MEDS: SINEQUAN PO SCH (20:27)
[2018-07-28] MEDS: REQUIP PO SCH (20:30)
--- NOTE | 2018-07-29 09:34 | Diag Imaging Result Doc PS360 ---
EXAM: CHEST-2 VIEWS 07/29/2018 HISTORY: fever TECHNIQUE: Two views the chest COMMENT: There are bilateral pleural effusions. This may also have been present at the time the previous study of 06/11/2018, however the lateral costophrenic angle on the left is more blunted currently. The inspiration is less optimal. There is some fluid in the minor fissure on the right. There may be mild interstitial pulmonary edema. There is increased opacity in the medial right base compared to the previous study which may be indicative of atelectasis or pneumonia. IMPRESSION: Pleural effusions. Mild pulmonary edema and atelectasis versus pneumonia right lower lobe. Electronically signed by Viktor Clifford 07/29/2018 9:32 AM
[2018-07-29 10:52] LABS: BASO# 0.02 X1000 (0.0-0.2); BASO% 0.1 % (0.0-0.8); EOS# 0.15 X1000 (0.0-0.7); HEMATOCRIT 30.5 % (37.0-47.0); HEMOGLOBIN 9.4 g/dL (12.0-16.0); LYMPH# 1.35 X1000 (1.2-3.4); LYMPH% 8.6 % (20.5-51.1); MCH 26.1 PG (27-31); MCHC 30.8 g/dL (33-37); MCV 84.7 FL (81-99); MONO# 1.67 X1000 (0.11-0.59); MONO% 10.7 % (1.7-9.3); MPV 9.2 FL (7.4-10.4); NEUT# 12.45 X1000 (1.4-6.5); NEUT% 79.6 % (42.2-75.2); PLT 309 X1000 (130-400); RDW 18.7 % (11.5-14.5); WBC 15.64 X1000 (4.8-10.8)
[2018-07-29 11:08] LABS: AGAP 11; BUN 14 mg/dL (8-22); CALCIUM 9.1 mg/dL (8.8-10.2); CHLORIDE 96 mmol/L (98-107); COSMO 275; CREATININE 0.7 mg/dL (0.5-0.9); ESTIMATED GFR > 60; GLUCOSE 178 mg/dL (70-104); MAGNESIUM 1.3 mg/dL (1.5-2.7); SODIUM 135 mmol/L (136-145); TCO2 28 mmol/L (25-35)
[2018-07-29] MEDS ORDERED: ZOSYN 3.375 GM in NS 50 ML IV SCH (11:15)
[2018-07-29] MEDS ORDERED: MAGNESIUM SULFATE 4 GM/S.W.I. 4 GM/100 ML IVPB IV ONE (11:17)
--- NOTE | 2018-07-29 11:27 | GENERAL SURGERY PROGRESS NOTE ---
DATE: 07/29/2018 SUBJECTIVE: Overall she is feeling okay. Her bowels are functioning. OBJECTIVE: Vital signs: She did have some low-grade fever. Heart rate is in the low 100s. Blood pressure 175/80, oxygen saturation 94% on room air. General: She is alert. Abdomen: Soft. Incision is intact. There is no erythema. Extremities: Her left arm IV is soft with no erythema. There is no lower extremity edema. DIAGNOSTIC STUDIES: White count is 15, hematocrit 30, platelets 309,000. Metabolic panel is pending. Chest x-ray obtained this morning shows small bilateral effusions, atelectasis versus small right lower lobe consolidation. ASSESSMENT AND PLAN: An 82-year-old female status post ileostomy reversal. Overall, she is doing okay. Her bowels are functioning. Unfortunately she developed a low-grade fever. We are changing her IVs. Urinalysis is pending. I am going to start her on Zosyn preemptively. She did have a low colony count bacteriuria on admission. I do not suspect the wound is an issue or intra- abdominal is the problem. cc: Daphne Fields MD
[2018-07-29] MEDS: PERIDEX MT SCH ×2 (11:59→20:13)
[2018-07-29] MEDS: MYSOLINE PO SCH ×2 (11:59→20:14)
[2018-07-29] MEDS: LOVENOX SUBQ SCH (11:59)
[2018-07-29] MEDS: IMDUR PO SCH (12:00)
[2018-07-29] MEDS: CYMBALTA PO SCH ×2 (12:00→20:14)
[2018-07-29] MEDS: COREG PO SCH ×2 (12:00→20:14)
[2018-07-29] MEDS: MAG-OX PO SCH (12:00)
[2018-07-29] MEDS: SYSTANE EYE DROPS BOTH EYES SCH ×4 (12:01→20:13)
[2018-07-29 12:33] LABS: URINE SOURCE CATH
[2018-07-29 12:40] LABS: BILIRUBIN URINE NEGATIVE (NEGATIVE); BLOOD URINE NEGATIVE (NEGATIVE); COLOR YELLOW; GLUCOSE URINE NEGATIVE (NEGATIVE); KETONE URINE 10 mg/dL (NEGATIVE); LEUKOCYTES URINE SMALL (NEGATIVE); NITRITE URINE NEGATIVE (NEGATIVE); PH URINE 6.5; PROTEIN URINE 300 mg/dL (NEGATIVE); SP GRAVITY URINE 1.017; TURBIDITY URINE HAZY (CLEAR); UR EPITHELIAL CELLS >10 /HPF (<10); URINE BACTERIA NEGATIVE /HPF; URINE RBC <10 /HPF (<10); URINE WBC 20-40 /HPF (<10); UROBILINOGEN URINE NORMAL (NORMAL)
[2018-07-29] MEDS: LEVAQUIN 500 MG/D5W 500 MG/100 ML IVPB IV SCH (13:19)
[2018-07-29] MEDS: DILAUDID IV PRN (14:17)
[2018-07-29] MEDS: SODIUM CHLORIDE 0.9% INJ SCH (20:13)
[2018-07-29] MEDS: DESYREL PO SCH (20:13)
[2018-07-29] MEDS: PROTONIX IV SCH (20:13)
[2018-07-29] MEDS: SINEQUAN PO SCH (20:14)
[2018-07-29] MEDS: REQUIP PO SCH (20:15)
[2018-07-30] MEDS: DILAUDID IV PRN ×5 (00:11→20:12)
[2018-07-30] MEDS: SYSTANE EYE DROPS BOTH EYES SCH ×4 (07:06→17:46)
[2018-07-30] MEDS ORDERED: NORCO-5 ONE (09:16)
[2018-07-30] MEDS: IMDUR PO SCH (09:18)
[2018-07-30] MEDS: CYMBALTA PO SCH ×2 (09:18→21:35)
[2018-07-30] MEDS: PERIDEX MT SCH ×2 (09:19→21:34)
[2018-07-30] MEDS: MAG-OX PO SCH (09:19)
[2018-07-30] MEDS: NORCO-5 PO PRN ×2 (09:19→21:34)
[2018-07-30] MEDS: MYSOLINE PO SCH ×2 (09:19→21:34)
[2018-07-30] MEDS: LOVENOX SUBQ SCH (09:19)
[2018-07-30] MEDS: COREG PO SCH ×2 (09:19→21:35)
--- NOTE | 2018-07-30 12:21 | GENERAL SURGERY PROGRESS NOTE ---
DATE: 07/30/2018 SUBJECTIVE: She is doing better. She is very weak, had some drainage from the inferior aspect of her wound but I do not see any cellulitis. The fevers have resolved. OBJECTIVE: Vital signs: Temperature is 99 degrees, blood pressure 129/63. General: She is alert. Abdomen: Soft. Incisions intact. LABORATORY DATA: I reviewed her labs from yesterday. Her white count was elevated at 15, hematocrit 30. Urinalysis positive. Chest x-ray did show possible right lower lobe pneumonia. ASSESSMENT AND PLAN: An 82-year-old female status post ileostomy reversal. She is overall doing okay. She has been afebrile now 24 hours. We changed her IV, we started her on Levaquin for urinary tract infection and possible pneumonia. She seems to be without any obvious source of infection. We will monitor her through the day today. I do suspect she is going to need rehab placement. cc: Daphne Fields MD
[2018-07-30] MEDS: LEVAQUIN 500 MG/D5W 500 MG/100 ML IVPB IV SCH (12:32)
[2018-07-30] MEDS: REQUIP PO SCH (21:34)
[2018-07-30] MEDS: PROTONIX IV SCH (21:35)
[2018-07-30] MEDS: SODIUM CHLORIDE 0.9% INJ SCH (21:35)
[2018-07-30] MEDS: SINEQUAN PO SCH (21:35)
[2018-07-30] MEDS: DESYREL PO SCH (21:36)
[2018-07-31] MEDS: SYSTANE EYE DROPS BOTH EYES SCH ×7 (06:24→20:49)
[2018-07-31] MEDS: LOVENOX SUBQ SCH (09:32)
[2018-07-31] MEDS: CYMBALTA PO SCH ×2 (09:32→20:48)
[2018-07-31] MEDS: COREG PO SCH ×2 (09:32→20:47)
[2018-07-31] MEDS: IMDUR PO SCH (09:32)
[2018-07-31] MEDS: PERIDEX MT SCH ×2 (09:32→20:48)
[2018-07-31] MEDS: MYSOLINE PO SCH ×2 (09:32→20:47)
[2018-07-31 09:49] LABS: CALCIUM 9.1 mg/dL (8.8-10.2); CREATININE 0.9 mg/dL (0.5-0.9); POTASSIUM 4.1 mmol/L (3.5-5.1)
[2018-07-31 10:13] LABS: BASO# 0.02 X1000 (0.0-0.2); BASO% 0.1 % (0.0-0.8); EOS# 0.34 X1000 (0.0-0.7); EOS% 2.5 % (0.0-10.0); HEMOGLOBIN 9.3 g/dL (12.0-16.0); IMM GRAN# 0.07 X1000 (0.0-0.04); IMM GRAN% 0.5 % (0.0-0.5); LYMPH# 1.23 X1000 (1.2-3.4); LYMPH% 8.9 % (20.5-51.1); MCH 25.5 PG (27-31); MCV 85.2 FL (81-99); MONO# 1.13 X1000 (0.11-0.59); MONO% 8.2 % (1.7-9.3); MPV 10.2 FL (7.4-10.4); NEUT# 11.02 X1000 (1.4-6.5); NEUT% 79.8 % (42.2-75.2); PLT 322 X1000 (130-400); RBC 3.64 XMIL (4.2-5.4); RDW 18.9 % (11.5-14.5); WBC 13.81 X1000 (4.8-10.8)
[2018-07-31] MEDS: NORCO-5 PO PRN ×2 (13:26→17:52)
[2018-07-31] MEDS: LEVAQUIN 500 MG/D5W 500 MG/100 ML IVPB IV SCH (13:42)
[2018-07-31] MEDS: MAG-OX PO SCH (13:43)
--- NOTE | 2018-07-31 14:18 | GENERAL SURGERY PROGRESS NOTE ---
DATE: 07/31/2018 SUBJECTIVE: Bowel movement frequency slowing down. No more fevers the last 48 hours. OBJECTIVE: Vital Signs: Pulse 79, blood pressure 131/52, oxygen saturation is 98% on 3 L. General: She is alert. Abdomen: Soft. There is no cellulitis of her incision. She is on 2 L nasal cannula. I repeated her labs, but they are pending. ASSESSMENT AND PLAN: An 82-year-old female status post ileostomy reversal. We are awaiting rehabilitation disposition. She is on Levaquin to treat the possibility of urinary tract infection on her admitting urinalysis which was positive, but subsequent urinalysis has been negative, but she also had a possible early consolidation right lower lobe. Nevertheless, she has now been afebrile. We will repeat her labs, follow her white blood cell count. Plan for rehabilitation disposition when bed available. I will stop her intravenous pain medication. Physical therapy is seeing her. She is on prophylactic Lovenox and a proton pump inhibitor. cc: Daphne Fields MD
[2018-07-31] MEDS: SINEQUAN PO SCH (20:47)
[2018-07-31] MEDS: DESYREL PO SCH (20:48)
[2018-07-31] MEDS: REQUIP PO SCH (20:48)
[2018-07-31] MEDS: PROTONIX IV SCH (20:48)
[2018-08-01] MEDS: PERIDEX MT SCH ×2 (09:15→22:27)
[2018-08-01] MEDS: CYMBALTA PO SCH ×2 (09:16→22:25)
[2018-08-01] MEDS: MYSOLINE PO SCH ×2 (09:16→22:24)
[2018-08-01] MEDS: IMDUR PO SCH (09:16)
[2018-08-01] MEDS: COREG PO SCH ×2 (09:16→22:25)
[2018-08-01] MEDS: SYSTANE EYE DROPS BOTH EYES SCH ×5 (09:17→22:26)
[2018-08-01] MEDS: LOVENOX SUBQ SCH (09:17)
[2018-08-01] MEDS: LEVAQUIN 500 MG/D5W 500 MG/100 ML IVPB IV SCH (13:20)
[2018-08-01] MEDS: PERCOCET-5 PO PRN ×3 (13:21→22:25)
[2018-08-01] MEDS: IMODIUM PO SCH (16:03)
--- NOTE | 2018-08-01 16:05 | GENERAL SURGERY PROGRESS NOTE ---
DATE: 08/01/2018 SUBJECTIVE: She is doing okay. Bowel movements have slowed down. No fevers in the last 2 to 3 days. OBJECTIVE: Vital Signs: Pulse is in the high 80s. Blood pressure is 113/43. Oxygen saturation is 94% on 3 L. General: She is alert. Abdomen: Soft. Incision is intact. There is some serous drainage from the inferior aspect. White count is down to 13 and hematocrit is 31. Creatinine is 0.9. ASSESSMENT AND PLAN: This is an 82-year-old female status post ileostomy reversal. Overall, I think she is doing okay surgically. We are treating a urinary tract infection as well as a possible early pneumonia with Levaquin. All of her cultures have been sensitive. Plan for rehab placement next week when a bed is available. Otherwise, she is on prophylactic Lovenox. We are holding her Coumadin given that she had bleeding postoperatively last time and that she is on Levaquin. cc: Daphne Fields MD
[2018-08-01] MEDS: DESYREL PO SCH (22:24)
[2018-08-01] MEDS: PROTONIX IV SCH (22:24)
[2018-08-01] MEDS: SODIUM CHLORIDE 0.9% INJ SCH (22:24)
[2018-08-01] MEDS: REQUIP PO SCH (22:25)
[2018-08-01] MEDS: SINEQUAN PO SCH (22:25)
[2018-08-02] MEDS: IMODIUM PO SCH ×3 (06:58→16:24)
[2018-08-02] MEDS: CYMBALTA PO SCH ×2 (09:06→20:54)
[2018-08-02] MEDS: IMDUR PO SCH (09:06)
[2018-08-02] MEDS: COREG PO SCH ×2 (09:06→20:56)
[2018-08-02] MEDS: MYSOLINE PO SCH ×2 (09:07→20:54)
[2018-08-02] MEDS: SYSTANE EYE DROPS BOTH EYES SCH ×4 (09:07→20:56)
[2018-08-02] MEDS: LOVENOX SUBQ SCH (09:07)
[2018-08-02] MEDS: PERIDEX MT SCH ×2 (09:07→20:54)
[2018-08-02] MEDS: PERCOCET-5 PO PRN ×4 (09:18→22:10)
--- NOTE | 2018-08-02 10:31 | GENERAL SURGERY PROGRESS NOTE ---
DATE: 08/02/2018 SUBJECTIVE: No events overnight. She is sleeping comfortably this morning. OBJECTIVE: Vital signs: No fevers, pulse 92, blood pressure 128/53. Abdomen: Soft. LABORATORY DATA: I reviewed her labs. White count is down to 13, hematocrit is 31. Creatinine 0.9. ASSESSMENT AND PLAN: An 82-year-old female with ileorectal anastomosis status post ileostomy reversal, treated for urinary tract infection UTI) and pneumonia. This seems to be resolving. Plan for rehabilitation disposition early next week. cc: Daphne Fields MD
[2018-08-02] MEDS: LEVAQUIN 500 MG/D5W 500 MG/100 ML IVPB IV SCH (11:54)
[2018-08-02] MEDS: REQUIP PO SCH (20:54)
[2018-08-02] MEDS: DESYREL PO SCH (20:54)
[2018-08-02] MEDS: SINEQUAN PO SCH (20:54)
[2018-08-02] MEDS: SODIUM CHLORIDE 0.9% INJ SCH (20:54)
[2018-08-02] MEDS: PROTONIX IV SCH (20:54)
[2018-08-03] MEDS: PERCOCET-5 PO PRN ×4 (04:00→20:25)
[2018-08-03] MEDS: IMODIUM PO SCH ×4 (04:00→18:31)
[2018-08-03] MEDS: SYSTANE EYE DROPS BOTH EYES SCH ×3 (12:19→18:32)
[2018-08-03] MEDS: MYSOLINE PO SCH ×2 (12:22→20:26)
[2018-08-03] MEDS: CYMBALTA PO SCH ×2 (12:22→20:25)
[2018-08-03] MEDS: LOVENOX SUBQ SCH (12:22)
[2018-08-03] MEDS: COREG PO SCH ×2 (12:22→20:26)
[2018-08-03] MEDS: IMDUR PO SCH (12:22)
[2018-08-03] MEDS: LEVAQUIN 500 MG/D5W 500 MG/100 ML IVPB IV SCH (12:22)
[2018-08-03] MEDS: PERIDEX MT SCH ×2 (12:23→20:26)
--- NOTE | 2018-08-03 13:26 | GENERAL SURGERY PROGRESS NOTE ---
DATE: 08/03/2018 SUBJECTIVE: Nurse noted some drainage from her wound. She was having some discomfort. No fevers. No tachycardia. OBJECTIVE: Examination shows fat necrosis from the inferior aspect of her wound. I removed a couple of mary and fascia is intact. We expressed all this as very oily fluid, nonpurulent. LABORATORIES: No new laboratories yet today. ASSESSMENT AND PLAN: This is an 82-year-old female status post ileostomy reversal. She is doing well. When there is a rehab bed available, we will let her go home. cc: Daphne Fields MD
--- NOTE | 2018-08-03 15:30 | DISCHARGE SUMMARY ---
ADMISSION DATE: 07/24/2018 DISCHARGE DATE: 08/03/2018 HISTORY OF PRESENT ILLNESS: This is an 82-year-old female who has a history of ischemic colitis of the right colon. She required right colectomy with end ileostomy. She presented this hospitalization for end ileostomy reversal. ADMITTING DIAGNOSIS: Ischemic colitis. DISCHARGE DIAGNOSIS: Ischemic colitis. PROCEDURE PERFORMED: On 07/24/2018, a completion total abdominal colectomy with ileorectal anastomosis. HOSPITAL COURSE: The patient was admitted on the day of her surgery for the above procedure. For details, please see dictated operative note. Postoperatively, she did well. She had return of bowel function in the usual period of time. Initially, this was diarrhea, but we were able to slow this down as her diet advanced. Her incision remained intact. We drained some small fluid collection on the day of her discharge, which was oily and consistent with fat necrosis. She did have a low-grade fever approximately senior living through her admission and was treated for apparent UTI and possible lower lobe pneumonia, but she was treated adequately with Levaquin for this and overall remained asymptomatic. Throughout her course, she was on prophylactic Lovenox and PPI. We held her Coumadin given her history of bleeding during her previous operation, and we will resume that at her discharge. She was very debilitated. She is chronically weak. Physical therapy worked with her daily, but she needs ongoing rehab. Wound culture did grow gram positive cocci on the day of her discharge. Will start Bactrim and hold Coumadin for another week. DISPOSITION: To [facility]. DISCHARGE MEDICATIONS: Requip 1 mg p.o. every night at bedtime, trazodone 200 mg p.o. every night at bedtime, Coreg 12.5 mg p.o. b.i.d., doxepin 10 mg p.o. every night at bedtime, Cymbalta 30 mg p.o. b.i.d., isosorbide mononitrate 30 mg p.o. every a.m., loperamide 2 mg p.o. 30 minutes prior to each meal, Zofran 4 mg p.o. every 4 hours p.r.n. nausea, Percocet 5 mg/325 one tablet every 6 hours p.r.n., Protonix 40 mg daily, primidone 50 mg p.o. b.i.d., Neurontin 300 mg p.o. every night at bedtime, Coumadin 2 mg p.o. every night at bedtime resume after completing Bactrim in 1 week. Bactrim DS one tab PO BID for 7 days. DISCHARGE DIET: GI soft. DISCHARGE ACTIVITY: Per physical therapy. FOLLOWUP APPOINTMENTS: With me in 1 week for staple removal at [facility]. cc: Daphne Fields MD MTDD
[2018-08-03] MEDS: SINEQUAN PO SCH (20:25)
[2018-08-03] MEDS: REQUIP PO SCH (20:25)
[2018-08-03] MEDS: SODIUM CHLORIDE 0.9% INJ SCH (20:26)
[2018-08-03] MEDS: DESYREL PO SCH (20:26)
[2018-08-03] MEDS: PROTONIX IV SCH (20:26)
[2018-08-04] MEDS: SYSTANE EYE DROPS BOTH EYES SCH ×2 (00:10→12:16)
[2018-08-04] MEDS: IMODIUM PO SCH ×2 (06:02→12:19)
[2018-08-04 11:19] VITALS: BP 144/49
[2018-08-04] MEDS: MYSOLINE PO SCH (12:15)
[2018-08-04] MEDS: IMDUR PO SCH (12:15)
[2018-08-04] MEDS: LOVENOX SUBQ SCH (12:15)
[2018-08-04] MEDS: PERIDEX MT SCH (12:16)
[2018-08-04] MEDS: CYMBALTA PO SCH (12:16)
[2018-08-04] MEDS: COREG PO SCH (12:16)
[2018-08-04] MEDS: PERCOCET-5 PO PRN (12:16)
[2018-08-04] MEDS: LEVAQUIN 500 MG/D5W 500 MG/100 ML IVPB IV SCH (12:46)
--- NOTE | 2018-08-04 13:44 | GENERAL SURGERY PROGRESS NOTE ---
DATE: 08/04/2018 SUBJECTIVE: She has had intermittent what sounds like abdominal muscle spasms. Her bowels are functioning. She is tolerating a diet. She has had no fevers, no tachycardia. Blood pressure 144/49. General. She is alert. Abdomen is soft. There is some oily drainage in the inferior aspect of her wound, wound cultures did grow gram-positive cocci. Her abdomen is soft otherwise, her fascia is intact. Will plan for rehab discharge today. Will hold her Coumadin for another week. I will start her on Bactrim given the gram-positive cocci in her wound although I do think the fluid collection is mostly fat necrosis. Will treat this mostly at the request of the . Pain control is major issue for this lady chronically. She is on Percocet. I discussed importance of avoiding IV pain medication. She may ultimately require pain clinic evaluation for long-term analgesia but will let her go to [facility] rehab. Her discharge summary was dictated and addended today. cc: Daphne Fields MD
== END 2018-08-04 13:58 | DRG 329 ==
LOC: SURHOLD 07-24 07:51 → EDSTATUS 07-24 10:00 → 4N 07-24 14:17
PROVIDERS: ADMIT Surgery; ATTEND Surgery
CPT/HCPCS: 71020; 71046; 80048; 81001; 83735; 85025; 85027; 85610; 87070; 87077; 87088; 87186; 88307; 88313; 94760; 94761; 94762; 94799; 97110; 97161; 97530; A9270; C9113; J0131; J0330; J1100; J1170; J1335; J1650; J1956; J2270; J2405; J3010; J3475; J7120; S0164

== ENCOUNTER 2018-09-27 17:26 | Inpatient (IN) ==
[2018-09-27] MEDS ORDERED: NS 2,000 ML IV ONE (19:10)
[2018-09-27] MEDS ORDERED: LEVAQUIN 500 MG/D5W 500 MG/100 ML IVPB IV ONE (19:12)
[2018-09-27] MEDS ORDERED: VANCOMYCIN 1 GM/NS 1 GM/250 ML IVPB IV ONE (19:12)
[2018-09-27 19:16] LABS: BASO# 0.03 X1000 (0.0-0.2); BASO% 0.3 % (0.0-0.8); EOS# 0.11 X1000 (0.0-0.7); EOS% 1.2 % (0.0-10.0); HEMATOCRIT 31.6 % (37.0-47.0); HEMOGLOBIN 9.7 g/dL (12.0-16.0); IMM GRAN# 0.04 X1000 (0.0-0.04); IMM GRAN% 0.4 % (0.0-0.5); LYMPH# 1.46 X1000 (1.2-3.4); LYMPH% 16.2 % (20.5-51.1); MCH 25.2 PG (27-31); MCHC 30.7 g/dL (33-37); MCV 82.1 FL (81-99); MONO# 1.11 X1000 (0.11-0.59); MONO% 12.3 % (1.7-9.3); MPV 9.9 FL (7.4-10.4); NEUT# 6.27 X1000 (1.4-6.5); NEUT% 69.6 % (42.2-75.2); PLT 274 X1000 (130-400); RBC 3.85 XMIL (4.2-5.4); RDW 16.3 % (11.5-14.5); WBC 9.02 X1000 (4.8-10.8)
[2018-09-27 19:23] LABS: INR 1.27; PROTIME 16.9 Seconds (11.0-16.0)
[2018-09-27 19:28] LABS: ALBUMIN 3.5 g/dL (3.5-5.0); CALCIUM 8.7 mg/dL (8.8-10.2); CREATININE 1.1 mg/dL (0.5-0.9); POTASSIUM 4.3 mmol/L (3.5-5.1); TOTAL BILIRUBIN 0.31 mg/dL (0.20-1.00); TOTAL PROTEIN 7.1 g/dL (6.3-8.3)
[2018-09-27 19:44] LABS: URINE SOURCE CATH
[2018-09-27 19:49] LABS: BILIRUBIN URINE NEGATIVE (NEGATIVE); BLOOD URINE SMALL (NEGATIVE); COLOR YELLOW; GLUCOSE URINE NEGATIVE (NEGATIVE); KETONE URINE NEGATIVE (NEGATIVE); LEUKOCYTES URINE MODERATE (NEGATIVE); NITRITE URINE NEGATIVE (NEGATIVE); PROTEIN URINE 100 mg/dL (NEGATIVE); SP GRAVITY URINE 1.007; TURBIDITY URINE HAZY (CLEAR); UROBILINOGEN URINE NORMAL (NORMAL)
[2018-09-27 19:50] LABS: UR EPITHELIAL CELLS <10 /HPF (<10); URINE BACTERIA 4+ /HPF; URINE RBC <10 /HPF (<10); URINE WBC TNTC /HPF (<10)
[2018-09-27] MEDS ORDERED: OFIRMEV 1000 MG/ISOTONIC SOLN 1,000 MG/100 ML BOTTLE IV SCH (20:00)
--- NOTE | 2018-09-27 20:26 | Diag Imaging Result Doc PS360 ---
EXAM: CT HEAD W/O CONTRAST INDICATION: altered mental status TECHNIQUE: This exam was performed using automated exposure control, adjustment of mA or kV according to patient size, and/or use of iterative reconstruction technique. COMPARISON: 09/05/2018 FINDINGS: There is stable right occipital encephalomalacia. There is extensive patchy low attenuation in the periventricular and subcortical white matter suggesting advanced microangiopathy, stable. There is no definite acute infarct given the limited sensitivity of CT versus MRI. There is no discrete intracranial mass, mass effect, or intracranial hemorrhage. The surrounding soft tissues and bony structures are essentially unremarkable. IMPRESSION: Stable chronic changes. No definite acute intracranial pathology by CT. Electronically signed by Keegan Albright 09/27/2018 8:23 PM
--- NOTE | 2018-09-27 20:40 | Diag Imaging Result Doc PS360 ---
EXAM: CT ABD/PELVIS W/IV CONT ONLY INDICATION: Abdominal pain s/p TECHNIQUE: This exam was performed using automated exposure control, adjustment of mA or kV according to patient size, and/or use of iterative reconstruction technique. COMPARISON: 05/07/2018 FINDINGS: There is subsegmental atelectasis at both lung bases. There is a partially imaged 1 cm noncalcified lung nodule. It appears stable. There are multiple stable hepatic cysts. The gallbladder is distended. There is mild opacification around the gallbladder. Cholecystitis cannot be excluded. Please correlate clinically. Note that there was similar pericholecystic opacification on the previous study, however. The spleen, pancreas, and adrenal glands are unremarkable. There are multiple small renal cysts bilaterally with the largest on the left. They're similar to the previous study and some appear to contain proteinaceous debris or blood products. There is stable renal cortical scarring on the left. The urinary bladder is grossly unremarkable. There has been a previous hysterectomy. There has been a prior subtotal colectomy. There are extensive postsurgical changes at the lower ventral abdominal wall. There is a subcutaneous gas droplets in the region of the umbilicus that is stable as compared to a prior CT of the bony pelvis dated 09/05/2018. There is no evidence of bowel obstruction. There is no free abdominal gas. The remainder of the GI tract is essentially unremarkable. There is extensive aortoiliac atherosclerotic calcification. There is lumbar spondylosis. IMPRESSION: 1.Extensive postsurgical changes at the ventral abdominal wall inferiorly with a small subcutaneous gas droplets at the level of the umbilicus. These changes appear stable as compared to a prior CT of the bony pelvis dated 09/05/2018. 2.Distended gallbladder with mild fat opacification surrounding. Cholecystitis cannot be excluded. However, it does appear similar to a prior study from 2018. 3.Other incidental/nonacute findings detailed above. Electronically signed by Keegan Albright 09/27/2018 8:38 PM
--- NOTE | 2018-09-27 20:41 | Diag Imaging Result Doc PS360 ---
EXAM: CHEST-PORTABLE INDICATION: fever TECHNIQUE: One view COMPARISON: 07/29/2018 FINDINGS: The lungs are grossly clear. There is no discrete pleural fluid collection or pneumothorax. The cardiomediastinal silhouette and central vasculature are grossly unremarkable. There is a stable pacemaker. IMPRESSION: No evidence of acute pathology by plain radiograph. Electronically signed by Keegan Albright 09/27/2018 8:39 PM
[2018-09-27 20:42] LABS: CK INDEX 0.5 (0.0-2.5); CK-MB 1.4 ng/mL (0.0-5.0)
--- NOTE | 2018-09-27 21:45 | PROVIDER DOCUMENTATION ---
This chart was entered by May Albright Scribe, acting as scribe for Russell Glynn MD. HPI-Fever - General Chief Complaint: Altered Mental Status Stated Complaint: SHAKING Time Seen by Provider: 09/27/18 18:49 Source: patient, family Allergies/Adverse Reactions: Patient Allergies Allergy/AdvReac Type Severity Reaction Status Date / Time carbidopa [From Sinemet] Allergy Intermediate RASH Verified 09/27/18 20:10 levodopa [From Sinemet] Allergy Intermediate RASH Verified 09/27/18 20:10 Penicillins Allergy Intermediate RASH Verified 09/27/18 20:10 streptomycin Allergy Intermediate RASH Verified 09/27/18 20:10 diltiazem HCl * Allergy Unknown Unknown Verified 09/27/18 20:10 [From Cardizem] rasagiline mesylate * Allergy Unknown Unknown Verified 09/27/18 20:10 [From Azilect] sotalol AdvReac Intermediate "insomnia" Verified 09/27/18 20:10 Home Medications: Home Medication List Medication Instructions Recorded Confirmed Last Taken Type Isosorbide Mononitrate E.r. [Imdur] 30 mg PO QAM 08/22/15 09/05/18 07/24/18 06:30 History Gabapentin 300 mg PO ORDERED 01/09/17 09/05/18 07/24/18 06:30 History Trazodone [Desyrel] 200 mg PO QHS 01/15/17 09/05/18 07/23/18 20:00 History Carvedilol 12.5 mg PO BID 12/30/17 09/05/18 07/24/18 06:30 History Doxepin [Sinequan] 10 mg PO HS 12/30/17 09/05/18 07/23/18 19:30 History Primidone 50 mg PO BID 12/30/17 09/05/18 07/24/18 06:30 History Pantoprazole [Protonix] 40 mg PO DAILY@0700 #90 tab 04/24/18 09/05/18 07/24/18 06:30 Rx Magnesium Oxide [Mag-Ox] 400 mg PO BID #60 tab 05/20/18 09/05/18 07/24/18 06:30 Rx Duloxetine [Cymbalta] 1 cap PO BID 06/11/18 09/05/18 07/24/18 06:30 History Flavoxate [Urispas] 1 tab PO BID 06/11/18 09/05/18 07/24/18 06:30 History Ropinirole [Requip] 1 tab PO QHS 06/11/18 09/05/18 07/24/18 06:30 History Iron Carbonyl/Ascorbic Acid 1 each PO HS 07/20/18 09/05/18 07/23/18 19:30 History [Icar-C] Nitroglycerin [Nitrostat] 0.4 mg SL PRN PRN 07/20/18 09/05/18 Unknown History Potassium Chloride 10 meq PO DAILY 07/20/18 09/05/18 07/24/18 06:30 History Warfarin [Coumadin] 4 mg PO DIRECTED 09/05/18 09/05/18 Unknown History - History of Present Illness-Fever Nature of Presenting Problem: 83 yof presents w/family w/cc is historian. pt and were in [place] yest and they were in a museum and pt would stop sudden close eyes and start shaking, told she was reading. sts this happened multiple times. they went back to hotel to rest. they went to [employer] (acquired by [employer]) and sim episodes of shaking and saying she was reading w/eyes closed. sts [place] mar 2018 dr. andrade saw spots on colon that were infected. 3/4 of colon had colitis and 3/[address] freeman. sx was reversed 07-24-18. pt takes 8 immodiums a day acc to . pt has hx of 7 stents, artificial rt knee and pacemaker. pt has tremors and is in pain in er. has temp of 103.1. denies pt has hx of chf. pt has extensive rx list. pt sts she has had epigastric cp and burning urination. 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 denies: chills, fatique, night sweats Eyes: reports: no symptoms reported Ears, Nose, Mouth & Throat: reports: no symptoms reported. denies: hearing loss, sinus problem, hoarseness, throat pain Cardiovascular: reports: see HPI, chest pain (epigastric). denies: heart murmur, irregular heart rate, orthopnea Respiratory: reports: no symptoms reported. denies: cough, shortness of breath, wheezing Gastrointestinal: reports: no symptoms reported Genitourinary: reports: see HPI, dysuria. denies: hematuria, urinary retention, urgency Musculoskeletal: reports: no symptoms reported Integumentary: reports: no symptoms reported Neurological: reports: see HPI, tremors, other (confusion). denies: dizziness/vertigo, headache/migraines, seizure, syncope Psychiatric: reports: no symptoms reported Endocrine: reports: no symptoms reported. denies: change in skin pigment, excessive sweating, increased thirst, polyuria Hematologic/Lymphatic: reports: no symptoms reported Allergic/Immunologic: reports: no symptoms reported All Other Systems: Reviewed and Negative Past History - Adult - PAST MEDICAL HISTORY-ADULT Review of Records: reports: Old Records Reviewed, Nursing Assessment Review, Medications Reviewed, Social history reviewed & non-contributory. Major Childhood Illnesses: reports: denies history Cardiovascular: reports: cardiac disease (multiple cardiac stents), HTN, hype rlipidemia, pacemaker Respiratory: reports: denies history Gastrointestinal: reports: denies history Obstetrical/Gynecological: reports: denies history Genitourinary: reports: denies history Musculoskeletal: reports: arthritis, orthopedic injury Neurological: reports: dementia, Parkinson's Psychiatric: reports: anxiety Endocrine/Immune: reports: denies history Other Conditions: reports: denies history - PRIOR SURGERIES/PROCEDURES Surgical/Procedure History: reports: reviewed, not pertinent, hysterectomy, joint replacement - PRIOR HOSPITALIZATIONS Prior Hospitalizations: reports: for other non-related - IMMUNIZATION STATUS Childhood Immunizations: See Nurse Assessment Flu Vaccine: See Nurse Assessment - FAMILY HISTORY Family History: reviewed, not pertinent - SOCIAL HISTORY Smoking: cigarettes, other (former) Substance Use: alcohol Alcohol Use Frequency: occasionally Physical Exam-General - PHYSICAL EXAM-ADULT Initial Vital Signs Reviewed: Yes - CONSTITUTIONAL General Appearance: alert, moderate distress. negative: lethargic, slow to respond, obtunded - EYES Eyes: PERRL/EOMI, pink conjunctivae - HEAD, EARS, NOSE, MOUTH & THROAT HENMT: normocephalic/atraumatic, moist mucous membranes, normal ENT inspection - NECK Neck: non-tender, full range of motion, supple, normal inspection - RESPIRATORY Respiratory: chest non-tender, lungs clear, normal breath sounds, no pleuratic chest pain, no respiratory distress. negative: crackles, rales, rhonchi - CARDIOVASCULAR Cardiovascular: normal peripheral pulses, regular rate, rhythm, no edema, no gallop, no JVD, no murmur. negative: extra beats, friction rub, irregularly irregular - GASTROINTESTINAL (ABDOMEN) Abdominal Exam: normal bowel sounds, soft, no organomegaly, no pulsatile mass, tenderness (epigastric and suprapubic ten to palp). negative: non tender, abdominal bruit, abnormal bowel sounds, distended, guarding, rigid - LYMPHATIC Lymphatic: no adenopathy - MUSCULOSKELETAL Back Exam: normal inspection, no CVA tenderness, no vertebral tenderness. n egative: CVA tenderness, decreased range of motion, ecchymosis, swelling, vertebral tenderness Extremity: normal range of motion, non-tender, normal inspection Peripheral Pulses: radial (R): 2+, radial (L): 2+ - SKIN Integumentary: normal color, normal turgor, warm/dry. negative: tenderness, warm, zoster-like rash - NEUROLOGIC Neurologic: grossly normal, no motor/sensory deficits. negative: aphasia, EOM palsy, motor weakness, sensory deficit - PSYCHIATRIC Psych/Mental Status: disoriented x 3, anxious. negative: normal mood/affect, normal thought content, normal thought process, oriented x 3, depressed affect, paranoid, tearful Progress - PLAN OF CARE/RESULTS Progress/Plan/Lab Results: Vital Signs - 8 hr 09/27/18 17:42 09/27/18 19:08 09/27/18 20:15 Temperature 102.7 F H 99.3 F Pulse Rate 99 H Respiratory Rate 24 Blood Pressure 164/74 168/83 O2 Sat by Pulse Oximetry 94 L 97 92 L 09/27/18 20:30 09/27/18 21:00 Temperature Pulse Rate Respiratory Rate Blood Pressure O2 Sat by Pulse Oximetry 98 96 Laboratory Results - last 24 hr 09/27/18 09/27/18 09/27/18 18:08 18:08 18:08 WBC 9.02 RBC 3.85 L Hgb 9.7 L Hct 31.6 L MCV 82.1 MCH 25.2 L MCHC 30.7 L RDW Std Deviation 16.3 H Plt Count 274 MPV 9.9 Immature Gran % (Auto) 0.4 Neut % (Auto) 69.6 Lymph % (Auto) 16.2 L [place] % (Auto) 12.3 H Eos % (Auto) 1.2 Baso % (Auto) 0.3 Immature Gran # (Auto) 0.04 Neut # (Auto) 6.27 Lymph # (Auto) 1.46 [place] # (Auto) 1.11 H Eos # (Auto) 0.11 Baso # (Auto) 0.03 PT 16.9 H INR 1.27 Sodium 131 L Potassium 4.3 Chloride 98 Carbon Dioxide 23 L Anion Gap 10 BUN 11 Creatinine 1.1 H Estimated GFR/1.73 m2 48 BUN/Creatinine Ratio 10 Glucose 136 H POC Glucose Calculated Osmolality 264 Calcium 8.7 L Total Bilirubin 0.31 AST 21 ALT 8 L Alkaline Phosphatase 72 Creatine Kinase Creatine Kinase Index CK-MB (CK-2) Troponin T Total Protein 7.1 Albumin 3.5 Globulin 3.6 Albumin/Globulin Ratio 1.0 Plasma Lactate Urine Source Urine Color Urine Turbidity Urine pH Ur Specific [place] Urine Protein Ur Glucose (Stick) Ur Ketones (Stick) Urine Blood Urine Nitrite Urine Bilirubin Urobilinogen Dipstick Urine Leukocytes Urine WBC (Auto) Urine RBC (Auto) U Epithel Cells (Auto) Urine Bacteria (Auto) 09/27/18 09/27/18 09/27/18 18:08 18:08 18:11 WBC RBC Hgb Hct MCV MCH MCHC RDW Std Deviation Plt Count MPV Immature Gran % (Auto) Neut % (Auto) Lymph % (Auto) [place] % (Auto) Eos % (Auto) Baso % (Auto) Immature Gran # (Auto) Neut # (Auto) Lymph # (Auto) [place] # (Auto) Eos # (Auto) Baso # (Auto) PT INR Sodium Potassium Chloride Carbon Dioxide Anion Gap BUN Creatinine Estimated GFR/1.73 m2 BUN/Creatinine Ratio Glucose POC Glucose Calculated Osmolality Calcium Total Bilirubin AST ALT Alkaline Phosphatase Creatine Kinase 307 H Creatine Kinase Index 0.5 CK-MB (CK-2) 1.40 Troponin T 0.022 Total Protein Albumin Globulin Albumin/Globulin Ratio Plasma Lactate 1.5 Urine Source Urine Color Urine Turbidity Urine pH Ur Specific [place] Urine Protein Ur Glucose (Stick) Ur Ketones (Stick) Urine Blood Urine Nitrite Urine Bilirubin Urobilinogen Dipstick Urine Leukocytes Urine WBC (Auto) Urine RBC (Auto) U Epithel Cells (Auto) Urine Bacteria (Auto) 09/27/18 09/27/18 18:34 19:24 WBC RBC Hgb Hct MCV MCH MCHC RDW Std Deviation Plt Count MPV Immature Gran % (Auto) Neut % (Auto) Lymph % (Auto) [place] % (Auto) Eos % (Auto) Baso % (Auto) Immature Gran # (Auto) Neut # (Auto) Lymph # (Auto) [place] # (Auto) Eos # (Auto) Baso # (Auto) PT INR Sodium Potassium Chloride Carbon Dioxide Anion Gap BUN Creatinine Estimated GFR/1.73 m2 BUN/Creatinine Ratio Glucose POC Glucose 129 H Calculated Osmolality Calcium Total Bilirubin AST ALT Alkaline Phosphatase Creatine Kinase Creatine Kinase Index CK-MB (CK-2) Troponin T Total Protein Albumin Globulin Albumin/Globulin Ratio Plasma Lactate Urine Source CATH Urine Color YELLOW Urine Turbidity HAZY Urine pH 6.0 Ur Specific [place] 1.007 Urine Protein 100 A Ur Glucose (Stick) NEGATIVE Ur Ketones (Stick) NEGATIVE Urine Blood SMALL A Urine Nitrite NEGATIVE Urine Bilirubin NEGATIVE Urobilinogen Dipstick NORMAL Urine Leukocytes MODERATE A Urine WBC (Auto) TNTC A Urine RBC (Auto) <10 U Epithel Cells (Auto) <10 Urine Bacteria (Auto) 4+ Orders Category Date Time Status Saline Loc DIRECTED Care 09/27/18 18:38 Active NPO Diet 09/27/18 18:38 Active CHEST-PORTABLE [RAD] Stat Exams 09/27/18 18:[address] ABD/PELVIS W/IV CONT ONLY [CT] Stat Exams 09/27/18 19:[address] HEAD W/O CONTRAST [CT] Stat Exams 09/27/18 19:14 Completed BLOOD CULTURE [BLDCUL] Stat Lab 09/27/18 18:12 Results CBC WITH ELECTRONIC DIFF [HEME] Stat Lab 09/27/18 18:08 Completed CK PROFILE [SP CHEM] Stat Lab 09/27/18 18:08 Completed COMPREHENSIVE METABOLIC PANEL [CHEM] Stat Lab 09/27/18 18:08 Completed LACTATE, PLASMA [CHEM] Stat Lab 09/27/18 18:11 Completed PT [PROTIME WITH INR] [COAG] Stat Lab 09/27/18 18:08 Completed TROPONIN T Stat Lab 09/27/18 18:08 Completed URINALYSIS W/POSS RFLX CULT [URINALYSIS] Stat Lab 09/27/18 19:24 Completed URINE CULTURE [RM] Routine Lab 09/27/18 20:06 Received 0.9% Sodium Chloride Inj [Ns] 2,000 ml Med 09/27/18 19:10 Discontinued IV 999 mls/hr Acetaminophen [Ofirmev 1000 mg/Isotonic Soln] Med 09/27/18 20:00 Active 1,000 mg in 100 ml IV Q6H Levofloxacin 500 mg/D5w [Levaquin 500 mg/D5w] Med 09/27/18 19:12 Discontinued 500 mg in 100 ml IV NOW Vancomycin 1 gm/Ns Med 09/27/18 19:12 Discontinued 1 gm in 250 ml IV NOW EKG [EKG] Stat Ther 09/27/18 19:22 Ordered Transfer/Admit Order [TRANSFER] Routine Transfer 09/27/18 21:41 Ordered Result Diagrams: 09/27/18 18:08 09/27/18 18:08 - EKG 1 Time of EKG reading by physician:: 18:27 (inferior infarct age undetermined ) EKG Read and Signed by:: Russell Glynn (cannot rule out anterior i nfarct, age undetermined ) EKG Interpretation (*Must complete 3 of following elements*): Abnormal Rate: 96 (nonspecific intraventricular block ) Rhythm: NSR [place]: left MS Interval: normal ST Wave: non-specific ST changes (t wave abnormality, consider lateral ischemia) 2 Time of EKG reading by physician:: 18:27 EKG Read and Signed by:: Manuel Chisholm EKG Interpretation (*Must complete 3 of following elements*): Abnormal Rate: 95 Rhythm: NSR QRS: LBB MS Interval: normal ST Wave: non-specific ST changes (Ns ST and T wave abnormality) - XRAY 1 XRAY: Bilateral XRAY Study: Chest ( EXAM: CHEST-PORTABLE INDICATION: fever TECHNIQUE: One view COMPARISON: 07/29/2018 FINDINGS: The lungs are grossly clear. There is no discrete pleural fluid collection or pneumothorax. The cardiomediastinal silhouette and central vasculature are grossly unremarkable. There is a stable pacemaker. IMPRESSION: No evidence of acute pathology by plain radiograph. Electronically signed by Keegan Albright 09/27/2018 8:39 PM) Impression: Normal Comparison with other Films: no changes - CT/MRI 1 CT Study: Abdomen ( EXAM: CT ABD/PELVIS W/IV CONT ONLY INDICATION: Abdominal pain s/p TECHNIQUE: This exam was performed using automated exposure control, adjustment of mA or kV according to patient size, and/or use of iterative reconstruction technique. COMPARISON: 05/07/2018 FINDINGS: There is subsegmental atelectasis at both lung bases. There is a partially imaged 1 cm noncalcified lung nodule. It appears stable. There are multiple stable hepatic cysts. The gallbladder is distended. There is mild opacification around the gallbladder. Cholecystitis cannot be excluded. Please correlate clinically. Note that there was similar pericholecystic opacification on the previous study, however. The spleen, pancreas, and adrenal glands are unremarkable. There are multiple small renal cysts bilaterally with the largest on the left. They're similar to the previous study and some appear to contain proteinaceous debris or blood products. There is stable renal cortical scarring on the left. The urinary bladder is grossly unremarkable. There has been a previous hysterectomy. There has been a prior subtotal colectomy. There are extensive postsurgical changes at the lower ventral abdominal wall. There is a subcutaneous gas droplets in the region of the umbilicus that is stable as compared to a prior CT of the bony pelvis dated 09/05/2018. There is no evidence of bowel obstruction. There is no free abdominal gas. The remainder of the GI tract is essentially unremarkable. There is extensive aortoiliac atherosclerotic calcification. There is lumbar spondylosis. IMPRESSION: 1.Extensive postsurgical changes at the ventral abdominal wall inferiorly with a small subcutaneous gas droplets at the level of the umbilicus. These changes appear stable as compared to a prior CT of the bony pelvis dated 09/05/2018. 2.Distended gallbladder with mild fat opacification surrounding. Cholecystitis cannot be excluded. However, it does appear similar to a prior study from 2018. 3.Other incidental/nonacute findings detailed above. Electronically signed by Keegan Albright 09/27/2018 8:38 PM), Pelvis Impression: Abnormal Comparison with other Films: changes noted 2 CT Study: Head ( EXAM: CT HEAD W/O CONTRAST INDICATION: altered mental status TECHNIQUE: This exam was performed using automated exposure control, adjustment of mA or kV according to patient size, and/or use of iterative rec onstruction technique. COMPARISON: 09/05/2018 FINDINGS: There is stable right occipital encephalomalacia. There is extensive patchy low attenuation in the periventricular and subcortical white matter suggesting advanced microangiopathy, stable. There is no definite acute infarct given the limited sensitivity of CT versus MRI. There is no discrete intracranial mass, mass effect, or intracranial hemorrhage. The surrounding soft tissues and bony structures are essentially unremarkable. IMPRESSION: Stable chronic changes. No definite acute intracranial pathology by CT. Electronically signed by Keegan Albright 09/27/2018 8:23 PM) Impression: Normal Comparison with other Films: no changes - CONSULTS/PCP/HOSPITALIST Notification #1 *Consult/PCP/Hospitalist*: Dr hernandez Time Discussed: 21:42 Consult Disposition: Admit Departure - Departure Date of Disposition Decision: 09/27/18 Time of Disposition Decision: 21:44 DIAGNOSIS: UTI (urinary tract infection), Altered mental status Disposition: HOME 01 Certified Medical Emergency: Emergent Condition: Stable Additional Freetext Instructions: We have examined and treated you today on an emergency basis only. This was not a substitute for, or an effort to provide, complete medical care. In most cases, you must let your doctor check you again. Tell your doctor about any new or lasting problems. We cannot recognize and treat all injuries or illnesses in one Emergency Department visit. If you had special tests, such as X-rays or CT scans, will be reviewed by radiologist and will call you if there are any new suggestions Follow up with primary care provider in 1 to 2 days if no improvement. If you do not have a primary care provider, you need to choose one as soon as possible. Take medicines as prescribed. Monitor for any side effects or adverse events from medications. If any side effect, adverse event or rash develops, or if you suspect any other adverse reaction to the medication, then discontinue the medication immediately and contact clinic /PCP or go to the nearest ER. Narcotic meds / sedative meds instruction - patent advised not to drive, operate any machinery or go into water after taking meds as it may impair mental abili ty to react to the situation in an appropriate manner. Continue other current medicines. Follow up with PCP within 24-48 hours, or sooner if symptoms worsen or fail to improve. Patient / guardian verbalizes understanding of treatment plan, medication, and side effects and agrees with treatment plan. Patient leaves ER in stable condition and ambulatory state. Return to ER as needed. Discharge instructions reviewed verbally and given to patient in written form. Follow up with primary care provider. Referrals and Follow-Ups: David Olguin MD [Primary Care Provider] - - Critical Care Note This patient required my direct & personal management of CC.: No Attestation - Physician/ AUGUSTUS Attestation Patient care was provided by Advanced Practice Provider:: No The physician spent face to face time with patient:: Yes Advanced Practice Provider documentation review:: Supervising physician onsite and consulted in the evaluation and care of this patient. The physician did have a face to face encounter with the patient. This chart was documented by the indicated scribe, (May Albright Scribe) and accurately reflects the services I performed and decisions made by me, Russell Glynn MD, as attested by the provider's signature.
[2018-09-27] MEDS ORDERED: MORPHINE IV ONE (21:46)
[2018-09-27] MEDS: DILAUDID IV PRN (22:54)
[2018-09-27] MEDS ORDERED: TYLENOL PO PRN (23:55)
[2018-09-28] MEDS: MAXIPIME 2 GM in NS 100 ML IV SCH ×2 (00:59→12:50)
[2018-09-28] MEDS: ZYVOX 600 MG/D5W 600 MG/300 ML IVPB IV SCH ×2 (01:02→14:42)
--- NOTE | 2018-09-28 02:10 | HISTORY AND PHYSICAL ---
HISTORY OF PRESENT ILLNESS: This is an 83-year-old female. Her complaints were abdominal discomfort, altered mentation. Briefly, she has had a colectomy associated with recurrent colitis, now she has had a total colectomy. Her who is her primary caregiver says she was in [place], [place], they were visiting the area and she had a couple episodes where she just kind of froze up. Initially she had tremors, it was not seizures, and then she just kind of froze up and she was staring off into space. She describes that she was reading, but there was nothing to read there. She had several episodes of this. No clear fevers. There is no nausea or vomiting. She has chronic diarrhea for which she takes Imodium 4 times a day, I think at least 4 mg 4 times a day. She has been able to eat. She does describe dysuria. Her last admission was a while back, and she had neutrophilia at that time which was eosinophilic, that was in the beginning of May, a very eosinophilic count. But today she is kind of just writhing in bed complaining of abdominal pain, really not sure what is all going on. She has gross pyuria, although she had some in the beginning of September for which she had E coli that was pansensitive. I am not sure if she had treatment at that time and I cannot tell who did that urine, but in any case today she complains of these issues. Now she is still very confused, but she does respond to questioning without significant difficulty. Now reportedly she had a temperature of a 103.1 degrees, the only thing recorded I see here is 102.7, which is still very significant. No respiratory symptoms. Again no nausea or vomiting. She does have abdominal discomfort, but it is mostly in her lower quadrants and she does have dysuria. Workup including CT scans revealed pyuria. CT scan showed some air droplets associated with her incision that were there previously, and gallbladder distention that was also there previously as of a CT in August. She does not have dipti tenderness in her right upper quadrant. She is admitted for sepsis presumably associated with urinary tract infection. PAST MEDICAL HISTORY: 1. 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 2. CAD status post PCI. 3. Atrial fibrillation, presumably. 4. Parkinsonism, she is has been on carbidopa previously. 5. Hypertension. 6. Peripheral arterial disease. PAST SURGICAL HISTORY: 1. She has had right partial colectomy, at this point,it is a total colectomy. 2. Hysterectomy. 3. Kidney stone removal. 4. Knee replacement. 5. Carpal tunnel surgery. 6. He also states that she has had stents in her leg, she has had arterial stents, and then a renal stent. SOCIAL HISTORY: No tobacco or ethanol. is very attentive. FAMILY HISTORY: CAD in mother and father who are both . No cancer. ALLERGIES: To carbidopa-levodopa, penicillin, streptomycin, Cardizem, Azilect, Rasagiline, and sotalol. MEDICATIONS: Medications which have not been confirmed are trazodone, Requip, Coreg, Coumadin, Cymbalta, gabapentin, Icar C, Imdur, nitroglycerin, potassium, primidone, doxepin, flavoxate, Magnesium oxide, and Protonix. REVIEW OF SYSTEMS: Constitutional: No weight loss, appetite change. Cardiovascular: No chest pain or palpitations. Pulmonary: She has some baseline shortness of breath. No cough. Gastrointestinal: As described. Genitourinary: As described. HEENT: No headache. No syncope. Otherwise negative times a 10 point review of systems. PHYSICAL EXAMINATION: VITAL SIGNS: Blood pressure is 168/83, heart rate of 90s, T-max 102.7 degrees, T-current 99.3, 98% on 2 L. CARDIOVASCULAR: Regular rate and rhythm. PULMONARY: Bilateral breath sounds. Clear to auscultation. GASTROINTESTINAL: Soft, nontender, nondistended. Bowel sounds are positive. LABORATORY DATA: White count is 9, hemoglobin and hematocrit 9 and 31, platelets of 274,000. INR is 1.2. Sodium 131, creatinine 1.1.General: She is well developed, in no acute distress. HEENT: Pupils are equal, round, and reactive to light. Extraocular movements are intact. Sclerae are anicteric. Neck: Supple. Cardiovascular: Regular rate and rhythm. No murmurs, gallops, or rubs. Pulmonary: Bilateral breath sounds. Clear to auscultation. Gastrointestinal: Soft. She has some tenderness in her lower quadrants, but no rebound, no guarding, no right upper quadrant tenderness. Neurological: Cranial nerves II-XX were intact, but she is just kind of writhing on the bed, could not get comfortable. Genitourinary: Was deferred, but no CVA tenderness. LABORATORY DATA: Reviewed. CT showed some gas droplets in the ventral abdominal wall that were unchanged from August of 2018 and a distended gallbladder. ASSESSMENT: The patient is an 83-year-old female presenting with fever and a sepsis type picture. She does have pyuria. She does have symptoms of dysuria, so we are going to call this urinary tract infection with sepsis, but sure that there is no other infection. 1. Sepsis urinary tract infection. We will continue antibiotics. She has been placed on Levaquin and vancomycin per the emergency room. We will do the current cefepime and Zyvox and see how she does. She did have an Escherichia coli urinary tract infection on 09/23/2018, I am not sure per se if that was treated. She has had Methicillin-resistant Staphylococcus aureus infection in her wound previously and Enterococcus, so we may get an Infectious Disease opinion as well. I will get a surgical opinion. 2. Abdominal pain of unclear etiology. These gas droplets are concerning, but apparently they have been there before. describes her incision, which she does have a denuded area about 2 cm deep. There is not cellulitis associated with it, but she does have some serous fluid draining, it is not purulent and apparently it is healing according to the who has been following it very closely. We will get Dr. Fields's opinion and make sure there is no infection, but there is no clear abscess or anything based on the CT scan. 3. Coronary artery disease appears to be stable. We will continue regular medications. 4. Encephalopathy. These episodes certainly could be partial seizures, but she does have a history of parkinsonism I feel like, and this may just be related to fever and delirium. If the episodes are not much improved I would entertain a Neurology consultation, but for right now I am going to try to treat her infection and see if that improves the general situation. 5. We will get abdominal ultrasound tomorrow just to make sure there is nothing else going on with her. DISPOSITION: Pending improvement in her mental status. cc: MD David Roger MD R. Tyler Harney, MD
[2018-09-28] MEDS: DILAUDID IV PRN ×3 (02:55→15:01)
[2018-09-28] MEDS: LOVENOX SUBQ SCH (06:37)
[2018-09-28 07:20] LABS: BASO# 0.02 X1000 (0.0-0.2); BASO% 0.3 % (0.0-0.8); EOS# 0.24 X1000 (0.0-0.7); HEMATOCRIT 29.8 % (37.0-47.0); HEMOGLOBIN 9.1 g/dL (12.0-16.0); IMM GRAN# 0.03 X1000 (0.0-0.04); IMM GRAN% 0.4 % (0.0-0.5); LYMPH# 1.55 X1000 (1.2-3.4); LYMPH% 19.5 % (20.5-51.1); MCH 25.1 PG (27-31); MCHC 30.5 g/dL (33-37); MCV 82.1 FL (81-99); MONO# 1.13 X1000 (0.11-0.59); MONO% 14.2 % (1.7-9.3); MPV 9.1 FL (7.4-10.4); NEUT# 4.97 X1000 (1.4-6.5); NEUT% 62.6 % (42.2-75.2); PLT 227 X1000 (130-400); RBC 3.63 XMIL (4.2-5.4); RDW 16.4 % (11.5-14.5); WBC 7.94 X1000 (4.8-10.8)
--- NOTE | 2018-09-28 07:27 | INFECTIOUS DISEASE CONSULT REP ---
DATE: 09/28/2018 CONCLUSION: The patient was admitted to the hospital. She appears to have a urinary tract infection as manifested by urinalysis which showed white cells and bacteria. She has abdominal tenderness and has recently had a surgical procedure in the abdomen, namely a colectomy. I think there is a possibility there could be infection in the abdomen. Also, it is noted on the CT scan that the patient may have cholecystitis as well. The patient's swab for influenza was positive for influenza A. She does not seem to have much in the way of symptoms, but possibly it might be very early in her illness or maybe she is a carrier of influenza. ADDENDUM: Microbiology just called to notify us that the patient's blood and urine cultures are growing gram negative rods. Therefore the patient has a gram negative alondra UTI with an associated bacteremia. RECOMMENDATIONS: I agree with treating the patient with cefepime pending further results. I have added Tamiflu to the patient's treatment also. Zyvox has been stopped. DISCUSSION: I was unable to obtain a history from the patient. The information I did find was in the computer. The patient was admitted the hospital with abdominal discomfort and altered mentation. The patient's lab tests show a CBC with a white count of 9020, hemoglobin 9.7, and platelet count 274,000. Creatinine is 1.1. GFR is 48. Blood and urine cultures are pending. Liver function studies are normal. CK is 307. CT scan of the abdomen and pelvis showed extensive postsurgical changes in the abdominal wall and extensive aortoiliac atherosclerotic calcification. Also, there was a possibility that the patient had cholecystitis. PAST MEDICAL HISTORY: Positive for colitis, coronary artery disease, atrial fibrillation, Parkinson's disease, hypertension, and peripheral arterial disease. PAST SURGICAL HISTORY: Positive for a colectomy, hysterectomy, kidney stone removal, total knee arthroplasty, carpal tunnel surgery, and placement of arterial stents in the patient's legs. FAMILY HISTORY: Positive for coronary artery disease and negative for cancer. SOCIAL HISTORY: The patient is . She does not smoke cigarettes or drink alcoholic beverages. ALLERGIES: The patient is allergic to Sinemet, penicillin antibiotics manifested by a rash. Also, she is allergic to streptomycin, Cardizem, Azilect, and sotalol. HOME MEDICATIONS: Include the following: Carvedilol, Sinequan, Cymbalta, Urispas, gabapentin, nitroglycerin, Protonix, primidone, Requip, Desyrel, and Coumadin. PHYSICAL EXAMINATION: Vital Signs: Temperature is 98.2 degrees, pulse 88, respirations 18, blood pressure 134/62. The patient weighs 120 pounds. General: This is an ill- appearing, elderly female. She is in no acute distress but she is complaining of having abdominal pain. Head, Eyes, Ears, Nose, and Throat: She can hear my spoken words and see near objects. Her sinuses are not tender. She does not have any white patches on her tongue. Neck: There does not seem to be any pain when she moves her neck. Lungs: Clear to auscultation. Cardiovascular: Heart rate is regular. Abdomen: Soft and diffusely tender. Bowel sounds were heard. Neurologic: The patient is awake. She did follow my requests to move her extremities and she did say that she felt her arms and legs when I touched them. Integument: No rash noted. Thank you for the consult. cc: Jose Hercules MD MTDTorito
[2018-09-28 08:07] LABS: HEMOGLOBIN A1C 5.3 % (4.8-6.0)
[2018-09-28 08:21] LABS: ALB/GLOB RATIO 0.9; ALBUMIN 2.8 g/dL (3.5-5.0); CREATININE 0.9 mg/dL (0.5-0.9); POTASSIUM 3.3 mmol/L (3.5-5.1); TOTAL BILIRUBIN 0.29 mg/dL (0.20-1.00); TOTAL PROTEIN 5.9 g/dL (6.3-8.3)
[2018-09-28] MEDS: TAMIFLU PO SCH ×2 (08:59→21:58)
[2018-09-28] MEDS: PYRIDIUM PO SCH ×3 (08:59→18:05)
[2018-09-28] MEDS: NS 1,000 ML IV SCH ×2 (09:32→22:00)
[2018-09-28] MEDS ORDERED: ATARAX PO PRN (09:44)
[2018-09-28] MEDS: POTASSIUM CHLORIDE 20 MEQ/SWI 20 MEQ/100 ML IVPB IV SCH ×2 (10:25→17:49)
--- NOTE | 2018-09-28 11:12 | EKG Report ---
Test Performed on : 09/27/2018 6:27:32 PM Test Reason : CP Blood Pressure : / mmHG Vent. Rate : 096 BPM Atrial Rate : 096 BPM P-R Int : 180 ms QRS Dur : 144 ms QT Int : 416 ms P-R-T Axes : 019 -33 096 degrees QTc Int : 525 ms Normal sinus rhythm. Left axis deviation Nonspecific intraventricular block Inferior infarct , age undetermined Cannot rule out Anterior infarct , age undetermined T wave abnormality, consider lateral ischemia Abnormal ECG When compared with ECG of 05-SEP-2018 12:39, (Unconfirmed) Sinus rhythm. has replaced Electronic ventricular pacemaker Unconfirmed Result
[2018-09-28] MEDS: ZOFRAN IV PRN (12:50)
--- NOTE | 2018-09-28 13:43 | GENERAL SURGERY CONSULTATION ---
DATE: 09/28/2018 HISTORY OF PRESENT ILLNESS: This is an 83-year-old female well known to me. She has had a colectomy for ischemic colitis with subsequent completion abdominal colectomy and ileorectal anastomosis. She was seen in my office a couple weeks ago, and she was recovering well. She was on a trip with her . She had some presyncopal type events, altered mental status, and she was brought in, where she was found to have fevers and a urinary tract infection. CT scan showed postsurgical changes appropriate. She denies any wound issues. She does have a lower portion of her incision that is healing by secondary intention. MEDICAL HISTORY: History of ischemic colitis, coronary artery disease, atrial fibrillation, Parkinson's, hypertension, chronic pain, peripheral arterial disease. SURGICAL HISTORY: She has had a total abdominal colectomy with ileorectal anastomosis. She also has an ileostomy with her initial operation, hysterectomy, lithotripsy, knee replacement, carpal tunnel, peripheral arterial and renal stents. SOCIAL HISTORY: No current tobacco, alcohol, or drugs. Her is here with her and very attentive. FAMILY HISTORY: Reviewed and noncontributory. REVIEW OF SYSTEMS: Ten points negative. PHYSICAL EXAMINATION: Vital signs: Temperature 98.2 degrees, pulse 94, blood pressure 156/76, oxygen saturation 96%. General: She is alert. HEENT: There is no scleral icterus. Neck: No cervical mass. Cardiovascular: Normal rate. Pulmonary: No increased work of breathing. Abdomen: Soft, nontender, nondistended. Lower midline incision is healing well. Integument: Warm, dry. Extremities: There is trace lower extremity edema. Psychiatric: She is anxious. Neurologic: No gross deficits. DIAGNOSTIC STUDIES: White count 7, hematocrit 29, creatinine is 0.9. She has gram-negative rods growing out of her urine. Nasal flu swab is positive for flu A. C difficile negative. ASSESSMENT AND PLAN: This is an 83-year-old female with total abdominal colectomy with ileorectal anastomosis. She has a urinary tract infection and flu. We will continue treatment for this. I do not see any surgical complications at this juncture. Regarding her diarrhea after a total abdominal colectomy, I would start 4 mg of Imodium 4 times daily. This seemed to be doing well for her at home, and we can reinitiate that at this point. Otherwise, p.o. as tolerated. I do not suspect that she has any acute pathology of the gallbladder and would strongly advise against any procedures to intervene upon this in the setting of flu and urinary tract infection and her recent abdominal operation. cc: Daphne Fields MD
--- NOTE | 2018-09-28 14:22 | PROGRESS NOTE ---
DATE: 09/28/2018 SUBJECTIVE: The patient is complaining of itching and she is very restless. OBJECTIVE: Vital Signs: temperature 98.2 degrees, blood pressure 156/71, heart rate 94, respirations 18, O2 saturation is 96% on room air. General: This is a chronically ill-appearing, elderly female, lying in bed in no acute distress. Heart: S1 and S2 normal. Lungs: Clear to auscultation bilaterally. Abdomen: Positive bowel sounds. Soft, nontender, nondistended. Extremities: No edema. No cyanosis. Neurologic: The patient is alert and oriented. Labs: White blood cell count is 7.9, hemoglobin 9.1, hematocrit 29, platelets 227,000. Sodium 133, potassium 3.3, chloride 101, CO2 21, BUN 10, creatinine 0.9, glucose 108. ASSESSMENT AND PLAN: 1. Urinary tract infection. The urine culture is growing gram-negative rods. Continue with antibiotic therapy as directed by Dr. Hercules. 2. Influenza. Continue on Tamiflu. 3. Chronic diarrhea. We will continue on Imodium. Stool for Clostridium difficile is negative. 4. Status post ileostomy reversal. Management as per the general surgeon. 5. Possible cholecystitis. An abdominal ultrasound is currently pending. We will monitor closely. 6. Chronic pain. We will restart the patient's [place]. 7. Paroxysmal atrial fibrillation. Aware. The patient's warfarin is on hold. 8. Hypertension. We will restart the Coreg and Imdur. 9. Restless legs syndrome. Continue on Requip. 10. Insomnia. Continue on trazodone. 11. Deep vein thrombosis prophylaxis. Continue on Lovenox. cc: Penny Thakur MD [facility]
[2018-09-28] MEDS: IMODIUM PO SCH ×3 (14:29→21:58)
[2018-09-28] MEDS: BENADRYL PO PRN ×2 (15:01→21:58)
--- NOTE | 2018-09-28 16:19 | Diag Imaging Result Doc PS360 ---
US ABDOMEN-COMPLETE - 09/28/2018 INDICATION: abdominal pain COMPARISON: CT from 09/27/2018 FINDINGS: The liver, gallbladder, and spleen are normal. The pancreas is obscured. There are renal cysts. Otherwise both kidneys are normal. Spleen size is 11.1 x 10.9 x 3.9 cm. Common bile duct measures 4 mm. Aorta, IVC, and main portal vein are patent. IMPRESSION: No acute disease or change from prior. Electronically signed by Marco Gilbert 09/28/2018 4:17 PM
[2018-09-28] MEDS: XANAX PO PRN (16:28)
[2018-09-28] MEDS: MYSOLINE PO SCH (21:58)
[2018-09-28] MEDS: NORCO-10 PO PRN (21:58)
[2018-09-28] MEDS: REQUIP PO SCH (21:58)
[2018-09-28] MEDS: COREG PO SCH (21:58)
[2018-09-28] MEDS: ICAR-C PO SCH (21:58)
[2018-09-28] MEDS: DESYREL PO SCH (21:59)
[2018-09-29] MEDS: MAXIPIME 2 GM in NS 100 ML IV SCH ×2 (01:11→12:41)
[2018-09-29] MEDS: ZYVOX 600 MG/D5W 600 MG/300 ML IVPB IV SCH ×2 (02:00→13:36)
[2018-09-29] MEDS: NS 1,000 ML IV SCH (02:18)
[2018-09-29] MEDS: XANAX PO PRN ×2 (06:07→15:41)
[2018-09-29] MEDS: LOVENOX SUBQ SCH (06:07)
[2018-09-29] MEDS: BENADRYL PO PRN ×2 (06:07→21:46)
[2018-09-29] MEDS: PROTONIX PO SCH (06:07)
[2018-09-29 07:58] LABS: BASO# 0.01 X1000 (0.0-0.2); BASO% 0.2 % (0.0-0.8); EOS# 0.79 X1000 (0.0-0.7); EOS% 13.4 % (0.0-10.0); HEMATOCRIT 31.5 % (37.0-47.0); HEMOGLOBIN 9.4 g/dL (12.0-16.0); LYMPH# 0.71 X1000 (1.2-3.4); MCH 24.8 PG (27-31); MCHC 29.8 g/dL (33-37); MCV 83.1 FL (81-99); MONO# 0.55 X1000 (0.11-0.59); MONO% 9.3 % (1.7-9.3); NEUT# 3.84 X1000 (1.4-6.5); NEUT% 65.1 % (42.2-75.2); PLT 217 X1000 (130-400); RBC 3.79 XMIL (4.2-5.4); RDW 16.6 % (11.5-14.5)
[2018-09-29 08:19] LABS: ALBUMIN 2.8 g/dL (3.5-5.0); CALCIUM 8.4 mg/dL (8.8-10.2); CREATININE 1.1 mg/dL (0.5-0.9); POTASSIUM 4.2 mmol/L (3.5-5.1); TOTAL BILIRUBIN 0.28 mg/dL (0.20-1.00); TOTAL PROTEIN 5.7 g/dL (6.3-8.3)
[2018-09-29] MEDS: ICAR-C PO SCH ×2 (08:20→21:40)
[2018-09-29] MEDS: IMODIUM PO SCH ×4 (08:20→21:40)
[2018-09-29] MEDS: TAMIFLU PO SCH ×2 (08:20→21:40)
[2018-09-29] MEDS: PYRIDIUM PO SCH ×3 (08:20→16:32)
[2018-09-29] MEDS: COREG PO SCH ×2 (08:20→21:40)
[2018-09-29] MEDS: MYSOLINE PO SCH ×2 (08:21→21:41)
[2018-09-29] MEDS: IMDUR PO SCH (08:21)
--- NOTE | 2018-09-29 14:40 | PROGRESS NOTE ---
DATE: 09/29/2018 SUBJECTIVE: Patient is resting in bed. She is somewhat confused. OBJECTIVE: Vital signs: Temperature 97.6 degrees, pulse 76, respirations 18, blood pressure 119/40, oxygen saturation is 99%. HEENT: Atraumatic, normocephalic. Cardiovascular System: S1, S2. Respiratory system has evidence of good air entry bilaterally. Abdomen is soft, nontender. No masses felt. Extremities: No evidence of edema. Central nervous system: No obvious focal deficits noted. LABORATORIES: WBC is 5.9, hematocrit is 31.5 with a platelet count of 217,000. Sodium is 139, potassium 4.2, chloride is 109, bicarbonate 17, BUN is 11, creatinine 1.1. ASSESSMENT AND PLAN: 1. Escherichia coli urinary tract infection. Continue antibiotics as recommended by the Infectious Disease team. 2. Gram-negative alondra bacteremia. Continue current antibiotic. Follow up on culture and sensitivity. ID following. 3. Status post ileostomy reversal.. Surgery following. 4. Possible cholecystitis. Abdominal ultrasound does not confirm any evidence of gallbladder disease. 5. Paroxysmal atrial fibrillation. Continue rate-controlling agent. 6. Influenza virus infection. Continued on Tamiflu. 7. Hypertension. Continue current antihypertensive regimen. 8. Restless legs syndrome. Continue Requip. 9. Deep vein thrombosis prophylaxis. [employer]. cc: Silver Abebe MD MTDD
--- NOTE | 2018-09-29 16:26 | INFECTIOUS DISEASE PROGRESS NO ---
DATE: 09/29/2018 PRESENT ILLNESS: Ms. Jeronimo is being treated for an Escherichia coli urinary tract infection with an associated bacteremia. She also tested positive for influenza A. She does have significant tenderness to the abdomen with history a right colectomy due to ischemic colitis. The CT of her abdomen shows the possibility of cholecystitis. MEDICATIONS: She has been receiving cefepime 2 g IV every 12 hours and Zyvox 600 mg IV every 12 hours. She is also on Tamiflu 75 mg by mouth every 12 hours. PHYSICAL EXAMINATION: Vital Signs: Temperature is 97.6 degrees, pulse rate 76, respiratory rate 16, blood pressure 119/40, O2 saturation is 99% on room air. General: This is a chronically ill- appearing elderly female. She is lying in the bed mildly confused but in no acute distress. HEENT: Atraumatic, normocephalic. Oral mucous membranes are pink and moist. Conjunctivae are pale. Neck: Supple. Trachea is midline. Cardiovascular: Heart rate and rhythm are regular; 100% paced on the monitor. Respiratory: Lung sounds are clear to auscultation bilaterally. Diminished in the bases. Abdomen: Soft, extremely tender to touch. Bowel sounds are hypoactive. Her midline abdominal incision has healed except for a small area of granulating tissue to the base of the incision. Neurologic: She is awake, alert, and oriented; able to move all extremities independently in the bed. LABORATORY AND X-RAY: Today her white count is 5.9, hemoglobin 9.4, platelet count 217,000. Creatinine is 1.1, GFR is 48, total bilirubin 0.28, AST 19, ALT 8, alkaline phosphatase 60. Her urine and blood cultures have both grown Escherichia coli which are both lund susceptible. Her influenza screen was positive for influenza A. C difficile toxin and antigen were both negative. No imaging reports today. ASSESSMENT AND PLAN: Ms. Jeronimo is being treated for an Escherichia coli urinary tract infection with an associated bacteremia. She will not need any Zyvox so we will discontinue that and we will also stop her cefepime. Although she has an allergy to penicillin, she has done well with the cefepime, so will go ahead and give her Kefzol 1 g IV every 8 hours. We will also continue the Tamiflu since she was positive for influenza A. She does not seem to have any symptoms of the flu at this point. There is the possibility of cholecystitis. She is being followed by Dr. Fields. We will go ahead and order blood cultures for in the morning in order to try to get a sterile set. These plans have been discussed with and recommended by Dr. Hercules. COMORBIDITIES: Include that she is elderly, with a history of coronary artery disease, Parkinson's disease, peripheral artery disease, atrial fibrillation and pacemaker. Dictated by LUCERO Vera for Jose Hercules MD cc: Jose Hercules MD [facility]
[2018-09-29] MEDS: KEFZOL 1 GM/D5W 1 GM/50 ML IVPB IV SCH ×2 (16:32→22:46)
[2018-09-29] MEDS: DESYREL PO SCH (21:40)
[2018-09-29] MEDS: REQUIP PO SCH (21:40)
[2018-09-30] MEDS: LOVENOX SUBQ SCH (06:23)
[2018-09-30] MEDS: PROTONIX PO SCH (06:23)
[2018-09-30 07:00] LABS: BASO# 0.01 X1000 (0.0-0.2); BASO% 0.1 % (0.0-0.8); EOS# 1.76 X1000 (0.0-0.7); EOS% 22.6 % (0.0-10.0); HEMATOCRIT 30.5 % (37.0-47.0); HEMOGLOBIN 9.2 g/dL (12.0-16.0); LYMPH# 0.94 X1000 (1.2-3.4); LYMPH% 12.1 % (20.5-51.1); MCH 24.9 PG (27-31); MCHC 30.2 g/dL (33-37); MCV 82.4 FL (81-99); MONO# 0.71 X1000 (0.11-0.59); MONO% 9.1 % (1.7-9.3); MPV 9.9 FL (7.4-10.4); NEUT# 4.36 X1000 (1.4-6.5); NEUT% 56.1 % (42.2-75.2); PLT 243 X1000 (130-400); RDW 16.6 % (11.5-14.5); WBC 7.78 X1000 (4.8-10.8)
[2018-09-30 07:43] LABS: BASO 1 % (0-1); EOS 21 % (1-10); LYMPHS 12 % (21-51); MONO 9 % (1-9); SEGS 57 % (42-75)
[2018-09-30] MEDS: KEFZOL 1 GM/D5W 1 GM/50 ML IVPB IV SCH ×3 (08:56→23:52)
[2018-09-30] MEDS: IMODIUM PO SCH ×4 (08:56→20:46)
[2018-09-30] MEDS: COREG PO SCH ×2 (08:56→20:47)
[2018-09-30] MEDS: TAMIFLU PO SCH ×2 (08:56→20:47)
[2018-09-30] MEDS: IMDUR PO SCH (08:57)
[2018-09-30] MEDS: MYSOLINE PO SCH ×2 (08:57→20:47)
[2018-09-30] MEDS: ICAR-C PO SCH ×2 (08:57→20:47)
[2018-09-30] MEDS: BENADRYL PO PRN (10:25)
[2018-09-30] MEDS: NORCO-10 PO PRN ×2 (12:57→20:47)
[2018-09-30] MEDS: ATARAX PO PRN ×2 (12:58→20:47)
--- NOTE | 2018-09-30 13:06 | PROGRESS NOTE ---
DATE: 09/30/2018 SUBJECTIVE: The patient resting comfortably in bed. OBJECTIVE: Temperature 97.7 degrees, pulse 74, respirations 20, blood pressure 124/48, and oxygen saturation is 100%. HEENT: Atraumatic and normocephalic. Cardiovascular: S1, S2. Respiratory: There is evidence of good air entry bilaterally. Abdomen: She has some vague tenderness in the epigastric area. No masses felt. Extremities: No evidence of edema. Central nervous system: No obvious focal deficit noted. LABORATORY: WBC is 7.78, hematocrit is 30.5 with a platelet count of 243,000. ASSESSMENT AND PLAN: 1. Urinary tract infection secondary to Escherichia coli. Continue antibiotics as recommended by Infectious Disease. 2. Bacteremia. Blood cultures positive for Escherichia coli as well as a Gram positive cocci. Antibiotics as recommended by Infectious Disease. 3. Status post ileostomy reversal. Surgery following. 4. Paroxysmal atrial fibrillation. Continue rate controlling agent. 5. Influenza virus infection. Continue on Tamiflu. 6. Hypertension. Continue current antihypertensive regimen. 7. Restless legs syndrome. Continue Requip. 8. Deep vein thrombosis prophylaxis. Lovenox. 9. Disposition. PLAN: Plan is for the patient to go to half-way facility. The patient will be discharged when cleared by the Infectious Disease team. cc: Silver Abebe MD
--- NOTE | 2018-09-30 13:50 | INFECTIOUS DISEASE PROGRESS NO ---
DATE: 09/30/2018 PRESENT ILLNESS: Ms. Jeronimo has an Escherichia coli urinary tract infection with an associated bacteremia, and is also being treated for the flu. She has abdominal pain, particularly to the open area of her midline abdominal incision which is draining and has been cultured. MEDICATION: She is receiving Kefzol 1 g IV every 8 hours and Tamiflu 75 mg by mouth every 12 hours. PHYSICAL EXAMINATION: Vital Signs: Temperature is 97.7 degrees, pulse rate 74, respiratory rate 20, blood pressure 124/48, O2 saturation is 100% on room air. General: This is a chronically ill- appearing, elderly female. She is sitting up in the bed. Currently in no acute distress. HEENT: Atraumatic, normocephalic. Oral mucous membranes are pink and moist. Conjunctivae are pale. Neck: Supple. Trachea is midline. Cardiovascular: Heart rate is regular. Respiratory: Lung sounds are clear to auscultation bilaterally and diminished in the bases. Abdomen: Soft, with bowel sounds active. There is a midline abdominal incision which is healed except for a small area of open, granulating tissue to the base of the incision which has some clear yellow drainage and is extremely painful. There is a mild amount of erythema surrounding that area. Neurologic: She is awake, alert, and oriented to person and place. She is able to move all her extremities independently in the bed. LABORATORY AND X-RAY: Today, her white count is 7.78, hemoglobin 9.2, platelet count 243,000. No metabolic panel today. Today, there are gram-positive cocci growing to one of the blood cultures, which may possibly represent a contaminant. The other blood culture has grown an Escherichia coli as well as the urine which has grown an Escherichia coli. Repeat blood cultures were drawn this morning and are pending. No imaging reports today. ASSESSMENT AND PLAN: Ms. Jeronimo is being treated for an Escherichia coli urinary tract infection with a bacteremia, using Kefzol, which we will continue at this time. There are gram-positive cocci growing at this point, which we think will probably be a contaminant. If not, we will add coverage as appropriate. She is receiving Tamiflu because she tested positive for influenza A. She is generally asymptomatic as far as flu symptoms are concerned. However, we will continue isolation and Tamiflu for 5 days. There is an open wound to the base of her midline abdominal incision, the rest of which has healed. That culture has been taken and will be sent to the lab. That area is very painful to her and she tells me that there is redness around that which was not there before. These plans have been discussed with and recommended by Dr. Hercules. COMORBIDITIES: For Mr. Jeronimo include that she is elderly, with coronary artery disease, Parkinson's disease, peripheral artery disease, atrial fibrillation, and a pacemaker. Dictated by LUCERO Vera for Jose Hercules MD cc: Jose Hercules MD [facility] SYSTEM[facility]
[2018-09-30] MEDS: REQUIP PO SCH (20:47)
[2018-09-30] MEDS: DESYREL PO SCH (20:47)
[2018-09-30] MEDS: XANAX PO PRN (20:47)
[2018-10-01] MEDS: LOVENOX SUBQ SCH (05:18)
[2018-10-01] MEDS: PROTONIX PO SCH ×2 (05:18→06:02)
[2018-10-01] MEDS: XANAX PO PRN ×2 (05:19→21:18)
[2018-10-01] MEDS: ATARAX PO PRN ×2 (05:19→21:18)
[2018-10-01] MEDS: TAMIFLU PO SCH ×2 (09:24→21:18)
[2018-10-01] MEDS: ICAR-C PO SCH ×2 (09:24→21:18)
[2018-10-01] MEDS: COREG PO SCH ×2 (09:25→21:18)
[2018-10-01] MEDS: IMDUR PO SCH (09:25)
[2018-10-01] MEDS: IMODIUM PO SCH ×4 (09:25→21:18)
[2018-10-01] MEDS: KEFZOL 1 GM/D5W 1 GM/50 ML IVPB IV SCH ×2 (09:25→16:47)
[2018-10-01] MEDS: MYSOLINE PO SCH ×2 (09:25→21:19)
[2018-10-01] MEDS: ZOFRAN IV PRN (11:02)
--- NOTE | 2018-10-01 15:19 | PROGRESS NOTE ---
DATE: 10/01/2018 SUBJECTIVE: The patient resting comfortably in bed. She does have family present in the room. OBJECTIVE: Vital signs: Temperature 97.7 degrees, pulse 75, respirations 21, blood pressure is 150/51, oxygen saturation is 97%. HEENT: Atraumatic, normocephalic. Cardiovascular: S1, S2. Respiratory system: Has evidence of good air entry bilaterally. Abdomen: Soft, nontender. No masses felt. Extremities: No evidence of edema. Central nervous system: No obvious focal deficits noted. LABORATORY DATA: None. ASSESSMENT AND PLAN: 1. Urinary tract infection secondary to Escherichia coli. Continue antibiotics as recommended by Infectious Disease. 2. Bacteremia. Blood cultures positive for Escherichia coli as well as Staphylococcus hominis. Antibiotic management per Infectious Disease team. 3. Status post ileostomy reversal. Surgery following. 4. Paroxysmal atrial fibrillation. Continue rate-controlling agent. 5. Influenza virus infection. Maintain patient on Tamiflu. 6. Hypertension. Continue current antihypertensive regimen. 7. Restless leg syndrome. Continue Requip. 8. Deep vein thrombosis prophylaxis with Lovenox. 9. Disposition: The patient will be going to shelter facility, and she can be discharged once cleared by the Infectious Disease team. cc: Silver Abebe MD
--- NOTE | 2018-10-01 15:54 | INFECTIOUS DISEASE PROGRESS NO ---
DATE: 10/01/2018 PRESENT ILLNESS: The patient has an E coli urinary tract infection with an associated bacteremia. She also is being treated for influenza a. There is a small ulcerated area on the distal part of the patient's abdominal incision. MEDICATIONS: The patient is on Kefzol 1 g IV every 8 hours and Tamiflu 75 mg p.o. every 12 hours. PHYSICAL EXAMINATION: Vital Signs: Temperature is 97.7 degrees, pulse 75, respirations 21, blood pressure 150/51. General: This is a chronically ill-appearing, elderly female. She is in no acute distress. Head, eyes, ears, nose, and throat: She can hear my spoken words and see near objects. There is no drainage coming from the nose or ears. Thorax: Patient has a pacemaker present on the left side. The site is not swollen or erythematous. Cardiovascular: Heart rate is regular. Lungs: Clear auscultation. Abdomen: Soft and nontender. Extremities: The patient's total knee arthroplasty is not swollen or erythematous. Neurologic: Patient is alert she can move her extremities. There is no tremor. LAB/RADIOLOGY: There is no lab for today. The patient's abdominal wound culture remains negative blood cultures repeat blood cultures are pending. ASSESSMENT AND PLAN: As regarding the patient's Escherichia coli bacteremia, she will need to be treated for a total of 6 weeks with IV Ancef because she has in a pacemaker and a total knee arthroplasty, either one or both of which could have become infected hematogenously with Escherichia coli. Day #1 of treatment with Kefzol will be the first day that the patient's repeat blood cultures are negative. As regarding the patient's Tamiflu tomorrow will be the final day of treatment with it. I am discontinuing the Tamiflu after the patient's morning dose tomorrow and at the same time I am also discontinuing the patient isolation. As regarding the patient's lower abdominal wound, it does not appear that the wound is infected and I do not think she will need any further antibiotics for it. COMORBIDITIES: The patient is elderly. She has a total knee arthroplasty in place as well as a pacemaker. She also has Parkinson's disease. cc: MD JACQUIE Liu
[2018-10-01] MEDS: REQUIP PO SCH (21:18)
[2018-10-01] MEDS: DESYREL PO SCH (21:18)
[2018-10-01] MEDS: NORCO-10 PO PRN (21:19)
[2018-10-02] MEDS: KEFZOL 1 GM/D5W 1 GM/50 ML IVPB IV SCH ×4 (01:03→23:41)
[2018-10-02] MEDS: PROTONIX PO SCH (06:14)
[2018-10-02] MEDS: LOVENOX SUBQ SCH (06:14)
[2018-10-02 07:32] LABS: BASO# 0.04 X1000 (0.0-0.2); BASO% 0.4 % (0.0-0.8); EOS# 1.49 X1000 (0.0-0.7); EOS% 14.8 % (0.0-10.0); HEMATOCRIT 31.1 % (37.0-47.0); HEMOGLOBIN 9.4 g/dL (12.0-16.0); IMM GRAN# 0.04 X1000 (0.0-0.04); IMM GRAN% 0.4 % (0.0-0.5); LYMPH# 1.67 X1000 (1.2-3.4); LYMPH% 16.6 % (20.5-51.1); MCH 24.9 PG (27-31); MCHC 30.2 g/dL (33-37); MCV 82.3 FL (81-99); MONO# 0.86 X1000 (0.11-0.59); MONO% 8.5 % (1.7-9.3); MPV 9.6 FL (7.4-10.4); NEUT# 5.97 X1000 (1.4-6.5); NEUT% 59.3 % (42.2-75.2); PLT 296 X1000 (130-400); RBC 3.78 XMIL (4.2-5.4); RDW 16.5 % (11.5-14.5); WBC 10.07 X1000 (4.8-10.8)
[2018-10-02 07:52] LABS: AGAP 11; ALB/GLOB RATIO 0.7; ALBUMIN 2.4 g/dL (3.5-5.0); ALKALINE PHOSPHATASE 65 U/L (32-104); BUN 5 mg/dL (8-22); CALCIUM 8.5 mg/dL (8.8-10.2); CHLORIDE 107 mmol/L (98-107); COSMO 276; CREATININE 0.8 mg/dL (0.5-0.9); ESTIMATED GFR > 60; GLUCOSE 93 mg/dL (70-104); GOT 13 U/L (10-30); GPT < 5 U/L (10-36); POTASSIUM 3.3 mmol/L (3.5-5.1); SODIUM 140 mmol/L (136-145); TCO2 22 mmol/L (25-35); TOTAL BILIRUBIN 0.18 mg/dL (0.20-1.00); TOTAL PROTEIN 5.7 g/dL (6.3-8.3)
[2018-10-02 09:03] LABS: BANDS 2 % (0-1); EOS 6 % (1-10); LYMPHS 24 % (21-51); MONO 4 % (1-9); SEGS 64 % (42-75)
[2018-10-02] MEDS: COREG PO SCH ×2 (09:57→21:15)
[2018-10-02] MEDS: ICAR-C PO SCH ×2 (09:57→21:15)
[2018-10-02] MEDS: IMDUR PO SCH (09:57)
[2018-10-02] MEDS: XANAX PO PRN ×2 (09:58→21:15)
[2018-10-02] MEDS: MYSOLINE PO SCH ×2 (09:58→21:15)
[2018-10-02] MEDS: ATARAX PO PRN ×2 (09:58→21:18)
[2018-10-02] MEDS: IMODIUM PO SCH ×4 (09:58→21:15)
[2018-10-02] MEDS: TAMIFLU PO SCH (09:58)
[2018-10-02] MEDS ORDERED: POTASSIUM CHLORIDE 40 MEQ/SWI 40 MEQ/100 ML IVPB IV ONE (10:59)
--- NOTE | 2018-10-02 11:27 | PROGRESS NOTE ---
DATE: 10/02/2018 SUBJECTIVE: Patient resting in bed. She has her present in the room. OBJECTIVE: Vital Signs: Temperature 97.9 degrees, pulse 75, respiratory 17, blood pressure 179/66, and oxygen saturation is 97%. HEENT: Atraumatic, normocephalic. Cardiovascular: S1, S2. Respiratory: There is evidence of good air entry bilaterally. Abdomen: Soft. Nontender. No masses felt. Extremities: No evidence of edema. Central nervous system: No obvious focal deficit noted. LABORATORY: WBC is 10.087, hematocrit 31.1 with a platelet count of 296,000. Sodium is 140. Potassium 3.3, chloride is 100, bicarb 22, BUN is 5 and creatinine 0.98. ASSESSMENT AND PLAN: 1. Urinary tract infection secondary to Escherichia coli. Continue antibiotics as recommended by Infectious Disease. 2. Bacteremia. Blood cultures positive for Escherichia coli as well as staff hominis. Continue antibiotics as recommended by Infectious Disease. 3. Status post ileostomy reversal. Surgery following. 4. Paroxysmal atrial fibrillation. Continue rate controlling agent. 5. Influenza virus infection. The patient has completed Tamiflu treatment. 6. Hypertension. Continue current antihypertensive regimen. 7. Restless legs syndrome. Continue Requip. 8. Deep vein thrombosis prophylaxis. Lovenox. 9. Disposition: The patient will be going to correction facility and she can be discharged once she has been cleared by the Infectious Disease team. cc: Silver Abebe MD
[2018-10-02] MEDS: NORCO-10 PO PRN (12:04)
[2018-10-02] MEDS: POTASSIUM CHLORIDE 20 MEQ/SWI 20 MEQ/100 ML IVPB IV SCH ×2 (12:12→16:02)
[2018-10-02] MEDS ORDERED: NS 250 ML ONE ×2 (13:57→14:52)
[2018-10-02 14:59] LABS: INR 1.07; PROTIME 14.7 Seconds (11.0-16.0)
[2018-10-02 15:00] LABS: PTT 31.6 Seconds (22.3-41.8)
[2018-10-02] MEDS: DESYREL PO SCH (21:15)
[2018-10-02] MEDS: REQUIP PO SCH (21:15)
[2018-10-03] MEDS: PROTONIX PO SCH (06:43)
[2018-10-03] MEDS: LOVENOX SUBQ SCH (06:43)
[2018-10-03 07:48] LABS: AGAP 11; BUN 4 mg/dL (8-22); CALCIUM 8.8 mg/dL (8.8-10.2); CHLORIDE 106 mmol/L (98-107); COSMO 276; CREATININE 0.7 mg/dL (0.5-0.9); ESTIMATED GFR > 60; GLUCOSE 95 mg/dL (70-104); POTASSIUM 3.5 mmol/L (3.5-5.1); SODIUM 140 mmol/L (136-145); TCO2 23 mmol/L (25-35)
[2018-10-03] MEDS: ICAR-C PO SCH ×2 (09:28→20:40)
[2018-10-03] MEDS: MYSOLINE PO SCH ×2 (09:28→20:40)
[2018-10-03] MEDS: COREG PO SCH ×2 (09:28→20:40)
[2018-10-03] MEDS: IMDUR PO SCH (09:28)
[2018-10-03] MEDS: IMODIUM PO SCH ×3 (09:29→20:39)
[2018-10-03] MEDS: KEFZOL 1 GM/D5W 1 GM/50 ML IVPB IV SCH ×2 (09:29→20:39)
--- NOTE | 2018-10-03 12:51 | PROGRESS NOTE ---
DATE: 10/03/2018 SUBJECTIVE: This morning, Ms. Jeronimo on referred to be feeling okay. She was slightly upset early on because she thought she would be going to [facility] rehab today. Unfortunately, the rehab does not take new patients over the course of the weekend. OBJECTIVE: Vital signs: Blood pressure is 162/52, pulse is 74, respiration is 20, temperature is 98 degrees. The patient was saturating 99% on room air. General: Ms. Jeronimo is an 83-year-old elderly female. she is in bed, no distress. HEENT: Mucosa is pink and moist. Anicteric. Acyanotic. Neck: Supple. Chest: Good air entry bilaterally. Few crackles in the posterior lung canales. Cardiovascular: Regular rate and rhythm. There is no murmurs, no rubs, no gallops. Pacemaker in the left anterior chest wall. Abdomen: Soft. There is an old surgical scar on the anterior abdominal wall. Bowel sounds are present and there is no hepatosplenomegaly. Extremities: No pedal edema. Central nervous system: Patient is awake, alert, and oriented. No focal neurological deficit. LABORATORY DATA: None for today except for chemistry which is normal. So far, a repeat blood culture has been 48 hours negative. CURRENT MEDICATIONS: Have all been reviewed. She is on Ancef as the antimicrobial, today is day 4 on that. ASSESSMENT: 1. Sepsis on presentation secondary to urinary tract infection. 2. Escherichia coli urinary tract infection with bacteremia. Patient is currently on Ancef. I think the plan is to switch her to ceftriaxone when she goes to the retirement. She already has a PICC line and there is a plan to discharge her on Friday and with an arrangement for 6 weeks treatment of the bacteremia because of the suspicion that the pacemaker leads could have been seeded as well as the right knee hardware could also have been seeded. 3. History of Parkinson. Noted. 4. History of paroxysmal atrial fibrillation, currently rate controlled. 5. Influenza A virus. Patient was treated with Tamiflu, has finished therapy. PLAN: So in general, I think Ms. Jeronimo is fairly stable. She is currently afebrile and not looking toxic. She is on IV antibiotics and there is a plan to transition her to [facility] on Friday hopefully with an arrangement for 6 weeks IV antimicrobial therapy. cc: Miky Miranda MD
--- NOTE | 2018-10-03 15:24 | INFECTIOUS DISEASE PROGRESS NO ---
DATE: 10/03/2018 PRESENT ILLNESS: The patient has an E coli urinary tract infection with an associated bacteremia. She tested positive for influenza A and has received treatment for it. There is a small ulcerated area on the distal part of the patient's abdominal incision, which is healing well. MEDICATIONS: The patient is on Ancef 1 g IV every 8 hours. She has completed her 5-day treatment course of Tamiflu. PHYSICAL EXAMINATION: Vital Signs: Temperature is 98 degrees, pulse 74, respirations 14, blood pressure 162/52. General: This is a chronically ill-appearing, elderly female. She is in no acute distress. Head, eyes, ears, nose, and throat: She can hear my spoken words and see near objects. There is no drainage coming from her nose or ears. Neck: There is no pain when she moves it. Thorax: The patient has a pacemaker present on her left side. Cardiovascular: Heart rate is regular. Lungs: Clear to auscultation. Abdomen: Soft and nontender. Extremities: The patient's total knee arthroplasty site is not swollen or erythematous. The patient has a PICC in place. The site is not erythematous or draining. Neurologic: The patient is alert. She can move her extremities. There is no tremor. LAB AND RADIOLOGY: Today the patient's creatinine 0.7. GFR is greater than 60. Liver function studies are normal. CBC shows a white count of 10,070, hemoglobin 9.4 and platelet count 296,000. ASSESSMENT AND PLAN: Patient had an Escherichia coli bacteremia. She will need a total of 6 weeks of treatment because she has a pacemaker in place and a total knee arthroplasty, either one or both of which could have become infected hematogenously while the patient was bacteremic. The plan is to continue Ancef for 6 weeks. Tamiflu has been discontinued. I switched the patient from Ancef to Rocephin [facility]. COMORBIDITIES: She is elderly. She has a total knee arthroplasty in place, as well as a pacemaker. She also has Parkinson disease. cc: Jose Hercules MD [facility]
[2018-10-03] MEDS: XANAX PO PRN (20:39)
[2018-10-03] MEDS: REQUIP PO SCH (20:39)
[2018-10-03] MEDS: ATARAX PO PRN (20:39)
[2018-10-03] MEDS: DESYREL PO SCH (20:40)
[2018-10-04] MEDS: KEFZOL 1 GM/D5W 1 GM/50 ML IVPB IV SCH ×3 (00:04→16:07)
[2018-10-04] MEDS: NORCO-10 PO PRN ×3 (03:45→16:53)
[2018-10-04] MEDS: LOVENOX SUBQ SCH (06:08)
[2018-10-04] MEDS: PROTONIX PO SCH (06:08)
[2018-10-04] MEDS: MYSOLINE PO SCH ×2 (08:57→21:21)
[2018-10-04] MEDS: ICAR-C PO SCH ×2 (08:57→21:21)
[2018-10-04] MEDS: IMODIUM PO SCH ×4 (08:57→21:20)
[2018-10-04] MEDS: IMDUR PO SCH (08:58)
[2018-10-04] MEDS: COREG PO SCH ×2 (08:58→21:20)
--- NOTE | 2018-10-04 15:03 | PROGRESS NOTE ---
DATE: 10/04/2018 SUBJECTIVE: Patient resting comfortable in bed. present in the room. OBJECTIVE: Vital signs: Temperature 97.5 degrees, pulse 75, respiratory rate 18, blood pressure 131/47, oxygen saturations 97%. HEENT: Atraumatic, normocephalic. Cardiovascular: S1, S2. Respiratory: Has evidence of good air entry bilaterally. Abdomen: Soft, nontender, no masses felt. Extremities: No evidence of edema. Central nervous system: No obvious focal deficit noted. LABS: None. ASSESSMENT AND PLAN: 1. Urinary tract infection secondary to Escherichia coli. Continue antibiotics as recommended by ID. 2. Bacteremia blood cultures positive for Escherichia coli as well as Staphylococcus hominis. Continue antibiotics as recommended by ID. 3. Paroxysmal atrial fibrillation. Continue rate controlling agent. 4. Influenza virus infection. Patient has completed Tamiflu treatment. 5. Hypertension, continue current antihypertensive regimen. 6. Restless legs syndrome, continue Requip. 7. Deep vein thrombosis prophylaxis Lovenox. 8. Disposition. Patient will be going to long term facility once she has been cleared by the Infectious Disease team. cc: Silver Abebe MD [facility]
[2018-10-04] MEDS: DESYREL PO SCH (21:20)
[2018-10-04] MEDS: REQUIP PO SCH (21:25)
[2018-10-05] MEDS: KEFZOL 1 GM/D5W 1 GM/50 ML IVPB IV SCH ×2 (00:20→08:45)
[2018-10-05] MEDS: PROTONIX PO SCH (05:59)
[2018-10-05] MEDS: LOVENOX SUBQ SCH (05:59)
[2018-10-05 07:17] LABS: BASO# 0.03 X1000 (0.0-0.2); BASO% 0.4 % (0.0-0.8); EOS# 0.68 X1000 (0.0-0.7); EOS% 8.5 % (0.0-10.0); HEMATOCRIT 34.3 % (37.0-47.0); HEMOGLOBIN 10.6 g/dL (12.0-16.0); IMM GRAN% 1.3 % (0.0-0.5); LYMPH# 2.24 X1000 (1.2-3.4); LYMPH% 28.1 % (20.5-51.1); MCH 25.1 PG (27-31); MCHC 30.9 g/dL (33-37); MCV 81.1 FL (81-99); MONO# 0.96 X1000 (0.11-0.59); MONO% 12.1 % (1.7-9.3); MPV 9.2 FL (7.4-10.4); NEUT# 3.95 X1000 (1.4-6.5); NEUT% 49.6 % (42.2-75.2); PLT 377 X1000 (130-400); RBC 4.23 XMIL (4.2-5.4); RDW 17.3 % (11.5-14.5); WBC 7.96 X1000 (4.8-10.8)
[2018-10-05 07:36] LABS: AGAP 9; BUN 4 mg/dL (8-22); CALCIUM 8.8 mg/dL (8.8-10.2); CHLORIDE 102 mmol/L (98-107); COSMO 273; CREATININE 0.7 mg/dL (0.5-0.9); ESTIMATED GFR > 60; GLUCOSE 109 mg/dL (70-104); POTASSIUM 3.1 mmol/L (3.5-5.1); SODIUM 138 mmol/L (136-145); TCO2 27 mmol/L (25-35)
[2018-10-05] MEDS: IMDUR PO SCH (08:51)
[2018-10-05] MEDS: COREG PO SCH (08:51)
[2018-10-05] MEDS: MYSOLINE PO SCH (08:51)
[2018-10-05] MEDS: IMODIUM PO SCH ×2 (08:51→14:19)
[2018-10-05] MEDS: ICAR-C PO SCH (08:51)
[2018-10-05] MEDS ORDERED: KLOR-CON PO ONE (09:39)
--- NOTE | 2018-10-05 11:05 | DISCHARGE SUMMARY ---
ADMISSION DATE: 09/27/2018 DISCHARGE DATE: PRINCIPAL DIAGNOSIS: Urinary tract infection secondary to Escherichia coli. SECONDARY DIAGNOSES: 1. Bacteremia secondary to Escherichia coli as well as staph hominis. 2. Paroxysmal atrial fibrillation. 3. Influenza virus infection. 4. Hypertension. 5. Restless legs syndrome. 6. History of total abdominal colectomy with ileorectal anastomosis. 7. Parkinsonism. 8. Peripheral arterial disease. 9. Coronary artery disease. 10. Encephalopathy, probably secondary to urinary tract infection. DISCHARGE MEDICATIONS: IV Rocephin dose as duration per Dr. Hercules Imdur 30mg po daily Gabapentin 100mg po three times a day Trazodone 200mg po qhs Coreg 12mg po twice a day Doxepin 10mg po qhs Primidone 50mg po twice a day Protonix 40mg po daily Magnesium oxide 400mg po twice a day Requip 1mg po qhs Cymbalta 30mg po twice a day Flavoxate 100mg po twice a day Potassium chloride 10meq po daily Nitrostat 0.4mg sublingual as needed prn chest apin I car-c 1 tablet twice a day Warfarin 4mg po daily Benadryl 25mg po qhs Loperamide 4mg po four times a day /prn diarrhea CONSULTATIONS: Dr. Jose Hercules, infectious disease Dr. Fields, General Surgery [facility] COURSE: The patient is an 83-year-old female presenting with fever and a sepsis type picture. She does have pyuria. Urine culture was positive for e.coli and blood culture positive for staphylococcus hominis and e.coli. Antibiotic management was done by Dr. Jose Hercules ( infectious disease [employer] sales consultant). She received Tamiflu treatment for influenza A virus infection . She has had a history of total abdominal colectomy with ileorectal anastomosis. The surgical team did not think she had any surgical complications from that procedure. Per by the Infectious Disease Team, antibiotic management will be for a total of 6 weeks because she does have a pacemaker and also she does have a history of a total knee arthroplasty. At this time, the patient can now be discharged to the rehab facility. Of note, potassium level this morning is 3.1, and we will give her a dose of potassium chloride 40 mEq. The levels will need to be rechecked while in the rehab facility. PLAN: Discharge to rehab facility. Follow up with Dr. Jose Hercules in 6 weeks and also follow up with primary care physician in 4 weeks. Potassium level will need to be rechecked in the next 1 to 2 days as this was corrected prior to discharge from the hospital. cc: Silver Abebe MD [facility]
[2018-10-05 14:11] VITALS: BP 140/108
[2018-10-05] MEDS: NORCO-10 PO PRN (14:17)
== END 2018-10-05 15:00 | DRG 872 ==
LOC: ED 17:26 → SUATTDRO 22:22 → 3N 22:22
PROVIDERS: ATTEND Internal Medicine
CPT/HCPCS: 36569; 70450; 71010; 71045; 74177; 76700; 80048; 80053; 81001; 82550; 82553; 82948; 83036; 83605; 84484; 85025; 85610; 85730; 87040; 87070; 87077; 87088; 87186; 87275; 87276; 87324; 87449; 87804; 93005; 96365; 96366; 96368; 96375; 99285; A9270; J0690; J0692; J1170; J1650; J1956; J2020; J2405; J3370; J3480; J7030; J7050; Q9967; XXXXX